=== PATIENT | female | born 1945 | race Caucasian/White ===

== ENCOUNTER 2016-04-20 08:06 | Day surgery (SDC) | payer MEDICARE ==
[2016-04-19 09:19] VITALS: BMI 32.5
[~2016-04-20 08:06] MED LIST: LACTATED RINGERS 1,000 ML IV SCH
[2016-04-20 08:53] VITALS: RESP 16; TEMP 98.2
[2016-04-20] MEDS ORDERED: PROPOFOL 10 MG/ML 20 ML VIAL IV ONE (08:58)
[2016-04-20 08:59] LABS: Glucose,Whole Blood 160 mg/dL (75-99)
--- NOTE | 2016-04-20 09:13 | P.PCN ---
Date of Procedure: 04/20/16 Procedure(s) Performed: BRIEF HISTORY: Patient is a 70-year-old pleasant white female, scheduled for an elective colonoscopy as a part of evaluation of change in bowel habits. PROCEDURE PERFORMED: Colonoscopy. PREOPERATIVE DIAGNOSIS: Change in bowel habits. IV sedation per Anesthesia. PROCEDURE: After informed consent was obtained, the patient, was brought into the endoscopy unit. IV conscious sedation was administered by Anesthesia under continuous monitoring. Digital rectal examination was normal. Initially the Olympus CF-160 flexible video colonoscope was then inserted in the rectum, gradually advanced into the cecum without any difficulty. Careful examination was performed as the scope was gradually being withdrawn. Ileocecal valve and the appendiceal orifice were visualized and appeared normal. Prep was excellent. Mucosa of the cecum, ascending colon, transverse colon, descending colon, sigmoid colon, and rectum appeared normal. Retroflexion was performed in the rectum and no lesions were seen. The patient tolerated the procedure well. IMPRESSION: Normal-appearing colon from rectum to cecum with no evidence of colorectal neoplasia. RECOMMENDATIONS: Findings of this examination were discussed with the patient as well as a family. She was advised to have a repeat screening colonoscopy in 10 years.
[2016-04-20 09:20] VITALS: BP 119/71; PULSE 59
[2016-04-20 09:32] LABS: Glucose,Whole Blood 166 mg/dL (75-99)
== END 2016-04-20 10:19 | disposition home or self-care (01) ==
LOC: ORWHC2ENDO 08:06
PROVIDERS: ATTEND Internal Medicine Gastroenterology
DX: R19.4 Change in bowel habit (principal); Z88.0 Allergy status to penicillin; I10 Essential (primary) hypertension; E78.5 Hyperlipidemia, unspecified; I25.10 Atherosclerotic heart disease of native coronary artery without angina pectoris; Z95.5 Presence of coronary angioplasty implant and graft; G47.33 Obstructive sleep apnea (adult) (pediatric); E11.9 Type 2 diabetes mellitus without complications; Z79.84 Long term (current) use of oral hypoglycemic drugs; Z79.4 Long term (current) use of insulin; Z79.899 Other long term (current) drug therapy
CPT/HCPCS: 45378; J2704

== ENCOUNTER → 2018-06-01 | Outpatient (CLI) | payer MEDICARE ==
--- NOTE | 2018-06-01 11:04 | BD ---
EXAMINATION TYPE: Axial Bone Density DATE OF EXAM: 06/01/2018 COMPARISON: NONE CLINICAL HISTORY: Postmenopausal female Height: 67 Weight: 218.3 FRAX RISK QUESTIONS: Alcohol (3 or more units per day): no Family History (Parent hip fracture): yes Glucocorticoids (More than 3mos): no (Ex: prednisone, prednisolone, methylprednisolone, dexamethasone, and hydrocortisone). History of Fracture in Adulthood: no Secondary Osteoporosis: 1. Type 1 Diabetes: no 2. Hyperthyroidism: no 3. Menopause before 45: no 4. Malnutrition: no 5. Chronic liver disease: no Rheumatoid Arthritis: no Current Tobacco Use: no RISK FACTORS HISTORY OF: Family History of Osteoporosis: no Active: yes Diet low in dairy products/other sources of calcium: no Postmenopausal woman: age 49 Lost more than 2 inches in height since high school: no MEDICATIONS: umalog, lantis, amlodipine, lasix, glucaphage, metoprolol, lipitor, losartan Additional History: pt is type 2 diabetic EXAM MEASUREMENTS: Bone mineral densitometry was performed using the [email or web address] System. Bone mineral density as measured about the Lumbar spine is: ----- L1-L4(G/cm2): 1.472 T Score Values are as follows: ----- L2: 2.7 ----- L3: 2.1 ----- L4: 2.9 ----- L1-L4: 2.4 Bone mineral density has: increased 6.4 % since study of 11.10.2008 Bone mineral density about the R hip (g/cm2): 1.377 Bone mineral density about the L hip (g/cm2): 1.328 T Score values are as follows: -----R Neck: 2.4 -----L Neck: 2.1 -----R Total: 3.2 -----L Total: 2.7 Bone mineral density has: increased 4.2 % since study of: 11.10.2008 IMPRESSION: Normal (Values between +1 and -1 indicate normal bone mass). Consider repeating this study in 5 year s or sooner if there is some new clinical indication. NOTE: T-SCORE=SD OF THE YOUNG ADULT MEAN.
== END | disposition home or self-care (01) ==
LOC: RADBDWWP 09:11
PROVIDERS: ATTEND Internal Medicine Geriatric Medicine
DX: M81.0 Age-related osteoporosis without current pathological fracture (principal)
CPT/HCPCS: 77080

== ENCOUNTER 2018-06-05 19:12 | Observation (INO) | payer MEDICARE ==
[2018-06-05] MEDS ORDERED: SODIUM CHLORIDE 0.9% 500 ML 500 ML IV STA (19:40)
[2018-06-05 20:00] LABS: Basophils % (A) 1 %; Eosinophils # (A) 0.3 k/uL (0-0.7); Eosinophils % (A) 4 %; HCT 32.8 % (34.0-46.0); HGB 11.1 gm/dL (11.4-16.0); Lymphocytes # (A) 1.7 k/uL (1.0-4.8); Lymphocytes % (A) 26 %; MCH 31.3 pg (25.0-35.0); MCHC 33.9 g/dL (31.0-37.0); MCV 92.1 fL (80.0-100.0); Mean Platelet Volume 7.9; Monocytes # (A) 0.4 k/uL (0-1.0); Monocytes % (A) 6 %; Neutrophils # (A) 3.9 k/uL (1.3-7.7); Neutrophils % (A) 60 %; Platelet Count 202 k/uL (150-450); RBC 3.56 m/uL (3.80-5.40); RDW 13.9 % (11.5-15.5); WBC 6.4 k/uL (3.8-10.6)
--- NOTE | 2018-06-05 20:00 | ED ---
General Adult HPI - General Chief complaint: Chest Pain Stated complaint: CHEST PAIN, LEFT NECK AND SHOULDER, EXHAUSTION Time Seen by Provider: 06/05/18 19:22 Source: patient, RN notes reviewed, old records reviewed Mode of arrival: wheelchair Limitations: no limitations - History of Present Illness Initial comments: 72-year-old female presented for evaluation of left-sided chest pain. Patient's symptoms have been progressive over one week, she's had several episodes of pain relieved by nitroglycerin. Over the past 48 hours she's had nearly constant left-sided chest pain with left shoulder pain and left sided neck pain. Denies trauma or injury. Denies diaphoresis, denies dyspnea, she has been lightheaded with increased generalized weakness she reports mild nonproductive cough. History of CAD with previous stenting in 2005. Not currently on any antiplatelet or anticoagulant. - Related Data Home Medications Medication Instructions Recorded Confirmed Aspirin EC [Ecotrin Low Dose] 81 mg PO DAILY 12/30/15 06/05/18 Atorvastatin [Lipitor] 40 mg PO HS 12/30/15 06/05/18 Gabapentin [Neurontin] 300 mg PO TID 12/30/15 06/05/18 INSULIN LISPRO (humaLOG) [HumaLOG] 20 units SQ AC-BRKFST 12/30/15 06/05/18 INSULIN LISPRO (humaLOG) [HumaLOG] 30 units SQ AC-LUNCH 12/30/15 06/05/18 INSULIN LISPRO (humaLOG) [HumaLOG] 40 units SQ AC-SUPPER 12/30/15 06/05/18 Insulin Glargine,Hum.rec.anlog 40 unit SQ HS 12/30/15 06/05/18 [Lantus Solostar] Losartan Potassium 100 mg PO HS 12/30/15 06/05/18 Metoprolol Succinate [Toprol XL] 50 mg PO BID 12/30/15 06/05/18 Multivitamins, Thera [Multivitamin] 1 tab PO DAILY 12/30/15 06/05/18 Nitroglycerin Sl Tabs [Nitrostat] 0.4 mg SUBLINGUAL Q5M PRN 12/30/15 06/05/18 amLODIPine [Norvasc] 2.5 mg PO QAM 12/30/15 06/05/18 metFORMIN HCL [Glucophage] 850 mg PO TID 12/30/15 06/05/18 Acetaminophen-Codeine 300-30mg 1 - 2 tab PO Q8H PRN 06/05/18 06/05/18 [Tylenol w/codeine #3] Albuterol Inhaler [Ventolin Hfa 2 puff INHALATION RT-Q6H PRN 06/05/18 06/05/18 Inhaler] Ascorbic Acid [Vitamin C] 500 mg PO DAILY 06/05/18 06/05/18 Furosemide [Lasix] 20 mg PO DAILY 06/05/18 06/05/18 Allergies Allergy/AdvReac Type Severity Reaction Status Date / Time Penicillins Allergy Rash/Hives Verified 06/05/18 19:44 Review of Systems ROS Statement: Those systems with pertinent positive or pertinent negative responses have been documented in the HPI. ROS Other: All systems not noted in ROS Statement are negative. Past Medical History Past Medical History: Coronary Artery Disease (CAD), Diabetes Mellitus, Hype rlipidemia, Hypertension, Sleep Apnea/CPAP/BIPAP Additional Past Medical History / Comment(s): arthritis, neuropathy, kidney stones, unstable angina,uses cpap History of Any Multi-Drug Resistant Organisms: None Reported Past Surgical History: Heart Catheterization With Stent, Hysterectomy Additional Past Surgical History / Comment(s): D and C, Cataract bilateral Past Anesthesia/Blood Transfusion Reactions: No Reported Reaction Date of Last Stent Placement:: Past Psychological History: No Psychological Hx Reported Smoking Status: Never smoker Past Alcohol Use History: Rare Past Drug Use History: None Reported - Past Family History Mother Family Medical History: Coronary Artery Disease (CAD), Diabetes Mellitus Father Additional Family Medical History / Comment(s): emphysema,heart problems Sister(s) Family Medical History: Cancer, Diabetes Mellitus Additional Family Medical History / Comment(s): breast Brother(s) Family Medical History: Diabetes Mellitus, Myocardial Infarction ([place]) General Exam Limitations: no limitations General appearance: alert, in no apparent distress Head exam: Present: atraumatic, normocephalic Eye exam: Present: normal appearance, PERRL ENT exam: Present: normal exam Neck exam: Present: normal inspection. Absent: tenderness, meningismus Respiratory exam: Present: normal lung sounds bilaterally. Absent: respiratory distress, wheezes Cardiovascular Exam: Present: regular rate, normal rhythm GI/Abdominal exam: Present: soft. Absent: distended, tenderness, guarding Extremities exam: Present: normal inspection, normal capillary refill, other (Normal bilateral radial pulses) Neurological exam: Present: alert, oriented X3 Psychiatric exam: Present: normal affect, normal mood Skin exam: Present: warm, dry, intact. Absent: cyanosis, diaphoretic Course Vital Signs 06/05/18 19:13 Temperature 98.4 F Pulse Rate 78 Respiratory 18 Rate Blood Pressure 167/80 O2 Sat by Pulse 97 Oximetry EKG Findings - EKG Comments: EKG Findings:: EKG: Sinus rhythm, rate 75, FL interval less than 200 ms, QRS duration 88, QTC 437, no ST segment elevation, artifact in V4 and V5. Medical Decision Making - Medical Decision Making 72-year-old female presented for evaluation of chest pain. EKG negative for ST segment elevation, chest x-ray negative for acute cardiopulmonary disease. Patient's symptoms are somewhat concerning with history of CAD. She has normal blood cell count, stable hemoglobin, normal electrolytes. Initial troponin negative. Patient will be kept in observation for serial cardiac enzymes, t elemetry, echo, and cardiology consultation. Case is discussed with Dr. Jim who will accept admission. - Lab Data Result diagrams: 06/05/18 19:43 06/05/18 19:43 Lab Results 06/05/18 06/05/18 06/05/18 Range/Units 19:43 19:43 19:43 WBC 6.4 (3.8-10.6) k/uL RBC 3.56 L (3.80-5.40) m/uL Hgb 11.1 L (11.4-16.0) gm/dL Hct 32.8 L (34.0-46.0) % MCV 92.1 (80.0-100.0) fL MCH 31.3 (25.0-35.0) pg MCHC 33.9 (31.0-37.0) g/dL RDW 13.9 (11.5-15.5) % Plt Count 202 (150-450) k/uL Neutrophils % 60 % Lymphocytes % 26 % Monocytes % 6 % Eosinophils % 4 % Basophils % 1 % Neutrophils # 3.9 (1.3-7.7) k/uL Lymphocytes # 1.7 (1.0-4.8) k/uL Monocytes # 0.4 (0-1.0) k/uL Eosinophils # 0.3 (0-0.7) k/uL Basophils # 0.0 (0-0.2) k/uL PT (9.0-12.0) sec INR (<1.2) APTT (22.0-30.0) sec Sodium 138 (137-145) mmol/L Potassium 4.9 (3.5-5.1) mmol/L Chloride 104 (98-107) mmol/L Carbon Dioxide 21 L (22-30) mmol/L Anion Gap 13 mmol/L BUN 32 H (7-17) mg/dL Creatinine 0.91 (0.52-1.04) mg/dL Est GFR (CKD-EPI)AfAm 74 (>60 ml/min/1.73 sqM) Est GFR (CKD-EPI)NonAf 64 (>60 ml/min/1.73 sqM) Glucose 182 H (74-99) mg/dL Calcium 10.0 (8.4-10.2) mg/dL Magnesium 1.7 (1.6-2.3) mg/dL Total Bilirubin 0.5 (0.2-1.3) mg/dL AST 59 H (14-36) U/L ALT 64 H (9-52) U/L Alkaline Phosphatase 75 (38-126) U/L Troponin I (0.000-0.034) ng/mL NT-Pro-B Natriuret Pep pg/mL Total Protein 7.3 (6.3-8.2) g/dL Albumin 4.3 (3.5-5.0) g/dL Influenza Type A RNA Not Detected (Not Detectd) Influenza Type B (PCR) Not Detected (Not Detectd) 06/05/18 06/05/18 06/05/18 Range/Units 19:43 19:43 19:43 WBC (3.8-10.6) k/uL RBC (3.80-5.40) m/uL Hgb (11.4-16.0) gm/dL Hct (34.0-46.0) % MCV (80.0-100.0) fL MCH (25.0-35.0) pg MCHC (31.0-37.0) g/dL RDW (11.5-15.5) % Plt Count (150-450) k/uL Neutrophils % % Lymphocytes % % Monocytes % % Eosinophils % % Basophils % % Neutrophils # (1.3-7.7) k/uL Lymphocytes # (1.0-4.8) k/uL Monocytes # (0-1.0) k/uL Eosinophils # (0-0.7) k/uL Basophils # (0-0.2) k/uL PT 9.9 (9.0-12.0) sec INR 0.9 (<1.2) APTT 19.1 L (22.0-30.0) sec Sodium (137-145) mmol/L Potassium (3.5-5.1) mmol/L Chloride (98-107) mmol/L Carbon Dioxide (22-30) mmol/L Anion Gap mmol/L BUN (7-17) mg/dL Creatinine (0.52-1.04) mg/dL Est GFR (CKD-EPI)AfAm (>60 ml/min/1.73 sqM) Est GFR (CKD-EPI)NonAf (>60 ml/min/1.73 sqM) Glucose (74-99) mg/dL Calcium (8.4-10.2) mg/dL Magnesium (1.6-2.3) mg/dL Total Bilirubin (0.2-1.3) mg/dL AST (14-36) U/L ALT (9-52) U/L Alkaline Phosphatase (38-126) U/L Troponin I <0.012 (0.000-0.034) ng/mL NT-Pro-B Natriuret Pep 48 pg/mL Total Protein (6.3-8.2) g/dL Albumin (3.5-5.0) g/dL Influenza Type A RNA (Not Detectd) Influenza Type B (PCR) (Not Detectd) Disposition Clinical Impression: Chest pain Disposition: HOME SELF-CARE Condition: Stable Is patient prescribed a controlled substance at d/c from ED?: No Referrals: Jeramy Lutz MD [Primary Care Provider] - 1-2 days Decision to Admit Reason: Admit from EC Decision Date: 06/05/18 Decision Time: 20:58
[2018-06-05 20:08] LABS: Albumin 4.3 g/dL (3.5-5.0); Magnesium 1.7 mg/dL (1.6-2.3); Potassium 4.9 mmol/L (3.5-5.1); Total Bilirubin 0.5 mg/dL (0.2-1.3); Total Protein 7.3 g/dL (6.3-8.2)
[2018-06-05 20:11] LABS: INR 0.9 (<1.2); Prothrombin Time 9.9 sec (9.0-12.0)
[2018-06-05 20:23] LABS: Partial Thromboplastin Time 19.1 sec (22.0-30.0)
[2018-06-05] MEDS ORDERED: ASPIRIN 325 MG TAB PO STA (20:24)
[2018-06-05] MEDS ORDERED: ALBUTEROL NEBULIZED 2.5 MG/3 ML INHALATION PRN (20:43)
[2018-06-05] MEDS ORDERED: NITROGLYCERIN SL TABS 0.4 MG TAB SUBLINGUAL PRN (20:43)
[2018-06-05] MEDS ORDERED: SODIUM CHLORIDE 0.9% 1,000 ML IV SCH (20:45)
--- NOTE | 2018-06-05 20:54 | XR ---
EXAMINATION: XR chest 2V DATE AND TIME: 06/05/2018 7:54 PM CLINICAL INDICATION: Chest pain with left arm and shoulder pain TECHNIQUE: Departmental protocol COMPARISON: 12/30/2015 FINDINGS: The lungs are clear. The pleural spaces are negative. The cardiac silhouette is not enlarged. The remainder of the mediastinal silhouette is unremarkable. The skeletal structures and soft tissues are negative for acute findings. IMPRESSION: NO ACUTE PROCESS.
[2018-06-05] MEDS ORDERED: ACETAMINOPHEN TAB 325 MG TAB PO PRN (20:55)
[2018-06-05] MEDS ORDERED: NALOXONE 0.4 MG/ML 1 ML VIAL IV PRN (20:55)
[2018-06-05] MEDS ORDERED: MORPHINE SULFATE 4 MG/ML SYRINGE IV PRN (20:55)
[2018-06-05] MEDS ORDERED: ATORVASTATIN 40 MG TAB PO SCH (21:00)
[2018-06-05] MEDS ORDERED: LOSARTAN 50 MG TAB PO SCH (21:00)
[2018-06-05] MEDS ORDERED: INSULIN DETEMIR (LEVEMIR) 100 UNIT/ML SYR SQ SCH (22:00)
[2018-06-05 22:47] LABS: Glucose,Whole Blood 125 mg/dL (75-99)
[2018-06-05] MEDS: METOPROLOL SUCCINATE (ER) 50 MG TAB.ER.24H PO SCH (22:48)
[2018-06-05] MEDS: GABAPENTIN 300 MG CAP PO SCH (22:48)
[2018-06-06 01:56] VITALS: RESP 18
[2018-06-06 06:47] LABS: Glucose,Whole Blood 127 mg/dL (75-99)
[2018-06-06] MEDS ORDERED: INSULIN ASPART (NovoLOG) 100 UNIT/ML VIAL SQ SCH ×3 (07:30→17:30)
[2018-06-06] MEDS ORDERED: ONDANSETRON 4 MG/2 ML VIAL IVP PRN (08:43)
[2018-06-06] MEDS ORDERED: ASPIRIN 81 MG PO SCH (09:00)
[2018-06-06] MEDS ORDERED: FUROSEMIDE 20 MG TAB PO SCH (09:00)
[2018-06-06] MEDS ORDERED: amLODIPine 2.5 MG TAB PO SCH (09:00)
[2018-06-06] MEDS ORDERED: CAFFEINE CITRATE 60 MG/3 ML VIAL IV PRN (09:25)
[2018-06-06] MEDS ORDERED: REGADENOSON 0.4 MG/5 ML SYRINGE IV ONE (09:25)
--- NOTE | 2018-06-06 09:25 | US ---
EXAMINATION TYPE: US abdomen complete DATE OF EXAM: 06/06/2018 COMPARISON: NONE CLINICAL HISTORY: nausea. N/V EXAM MEASUREMENTS: Liver Length: 19.8 cm Gallbladder Wall: 0.1 cm CBD: 0.4 cm Spleen: 9.1 cm Right Kidney: 13.2 x 6.1 x 5.8 cm Left Kidney: 11.9 x 4.4 x 5.0 cm Pancreas: Echogenic Liver: Increased attenuation, decreased visualization of vessels suggestive of fatty infiltrate. Ap pears enlarged in size and course. Gallbladder: Possible small amount of mobile sludge, no shadowing visualized Evidence for sonographic Guevara's sign: neg CBD: wnl Spleen: wnl Right Kidney: wnl Left Kidney: Lateral lower pole hypoechoic nodule - 1.0 x 0.8 x 0.9 cm. Prominent pyramids. Upper IVC: wnl Abd Aorta: No AAA visualized IMPRESSION: 1. Pattern of liver is nonspecific and be seen with fatty infiltration or hepatitis. 2. Gallbladder sludge with no evidence of biliary dilation. 3. hypoechoic lesion involving the lower pole left kidney is indeterminate and does not meet the crit eria of a simple cyst which May BE secondary to its small size. It is felt to BE most likely in the b asis of a tiny cyst.
[2018-06-06] MEDS ORDERED: Acetaminophen-Codeine 300-30mg TAB PO PRN (09:49)
--- NOTE | 2018-06-06 10:04 | P.CRDCN ---
History of Present Illness History of present illness: This is a pleasant 72-year-old female past medical history significant for coronary artery disease status post stent placement to the LAD at [facility] per Dr. Christina, diabetes mellitus, hypertension, dyslipidemia and obesity. She states she had a stent placed to the LAD after having an abnormal stress test in 2004. Subsequently thereafter in 2016 she had a Lexiscan stress test which was again abnormal for which she underwent repeat catheterization which she was told was normal. She states over the previous 2-3 days she has started feeling nauseated all the time. Not related to oral intake. Then she started having some heavy pressure sensation like someone was sitting on her chest in the midsternal region with radiation to the left shoulder and left neck. No radiation down the arm. The chest discomfort is not worse with exertion or physical activity. She denies associated shortness of breath, dizziness, vomiting or palpitations. She is seen and examined resting comfortably laying flat in bed in no acute distress. She denies active chest discomfort at this time but has persistent nausea. EKG reveals sinus mechanism with no acute ST or T wave abnormalities noted. Chest x-ray is negative for acute cardiopulmonary process. Laboratory data reviewed, WBC 6.4, hemoglobin 11.1, platelets 13.9, sodium 138, potassium 4.9, creatinine 0.91, magnesium 1.7, AST 59, ALT 64, cardiac enzymes negative 2, NT proBNP 48. Current cardiac medications include losartan 100 mg daily, Toprol 50 mg twice a day, amlodipine 2.5 mg daily, Lasix 20 mg daily, atorvastatin 40 mg daily and aspirin 81 mg daily. At the time of my exam: CONSTITUTIONAL: Denies fever. Denies chills. EYES: Denies blurred vision. Denies vision changes. Denies eye pain. EARS, NOSE, MOUTH & THROAT: Denies headache. Denies sore throat. Denies ear pain. CARDIOVASCULAR: Denies chest pain. Denies shortness of breath. Denies orthopnea. Denies PND. Denies palpitations. RESPIRATORY: Denies cough. GASTROINTESTINAL: Denies abdominal pain. Denies diarrhea. Denies constipation. Complains of nausea. Denies vomiting. MUSCULOSKELETAL: Denies myalgias. INTEGUMENTARY: Denies pruitis. Denies rash. NEUROLOGIC: Denies numbness. Denies tingling. Denies weakness. PSYCHIATRIC: Denies anxiety. Denies depression. ENDOCRINE: Denies fatigue. Denies weight change. Denies polydipsia. Denies polyurina. GENITOURINARY: Denies burning, hematuria or urgency with micturation. HEMATOLOGIC: Denies history of anemia. Denies bleeding. Blood pressure 127/68 heart rate 63 afebrile maintaining oxygen saturation on room air GENERAL: This is a 72-year-old female in no apparent distress at the time of my examination. HEENT: Head is atraumatic, normocephalic. Pupils are equal, round. Sclerae anicteric. Conjunctivae are clear. Mucous membranes of the mouth are moist. Neck is supple. There is no jugular venous distention. No carotid bruit is heard. LUNGS: Clear to auscultation no wheezes, rales or rhonchi. No chest wall tenderness is noted on palpation or with deep breathing. HEART: Regular rate and rhythm with systolic ejection murmur at the base, no rubs or gallops. S1 and S2 heard. ABDOMEN: Soft, nontender. Bowel sounds are heard. No organomegaly noted. EXTREMITIES: No evidence of peripheral edema and no calf tenderness noted. VASCULAR: Radial and dorsalis pedis pulses palpated, no evidence of clubbing. NEUROLOGIC: Patient is awake, alert and oriented x3. ASSESSMENT Chest pain, atypical with nausea and elevated liver enzymes. An acute coronary event has been ruled out. History of coronary artery disease status post stent placement 2004 Hypertension Dyslipidemia Diabetes mellitus PLAN An acute coronary event has been ruled out. Obtain ultrasound of the abdomen. Obtain 2-D echocardiogram and Doppler study to assess cardiac structure and function. Perform Lexiscan stress test to assess for stress-induced ischemia. Resume Toprol, losartan, Lasix, atorvastatin, aspirin and amlodipine. Further recommendations to follow based upon clinical course. Thank you kindly for this consultation. Nurse Practitioner note has been reviewed, I agree with a documented findings and plan of care. Patient was seen and examined. Past Medical History Past Medical History: Coronary Artery Disease (CAD), Diabetes Mellitus, Hyperlipidemia, Hypertension, Sleep Apnea/CPAP/BIPAP Additional Past Medical History / Comment(s): arthritis, neuropathy, kidney stones, unstable angina,uses cpap History of Any Multi-Drug Resistant Organisms: None Reported Past Surgical History: Heart Catheterization With Stent, Hysterectomy Additional Past Surgical History / Comment(s): D and C X2, Cataract bilateral X2 Past Anesthesia/Blood Transfusion Reactions: Postoperative Nausea & Vomiting (PONV) Date of Last Stent Placement:: Smoking Status: Never smoker - Past Family History Mother Family Medical History: Coronary Artery Disease (CAD), Diabetes Mellitus Father Additional Family Medical History / Comment(s): emphysema,heart problems Sister(s) Family Medical History: Cancer, Diabetes Mellitus Additional Family Medical History / Comment(s): breast Brother(s) Family Medical History: Diabetes Mellitus, Myocardial Infarction ([place]) Medications and Allergies Home Medications Medication Instructions Recorded Confirmed Type Aspirin EC [Ecotrin Low Dose] 81 mg PO DAILY 12/30/15 06/05/18 History Atorvastatin [Lipitor] 40 mg PO HS 12/30/15 06/05/18 History Gabapentin [Neurontin] 300 mg PO TID 12/30/15 06/05/18 History INSULIN LISPRO (humaLOG) [HumaLOG] 20 units SQ AC-BRKFST 12/30/15 06/05/18 History INSULIN LISPRO (humaLOG) [HumaLOG] 30 units SQ AC-LUNCH 12/30/15 06/05/18 History INSULIN LISPRO (humaLOG) [HumaLOG] 40 units SQ AC-SUPPER 12/30/15 06/05/18 History Insulin Glargine,Hum.rec.anlog 45 unit SQ HS 12/30/15 06/05/18 History [Lantus Solostar] Losartan Potassium 100 mg PO HS 12/30/15 06/05/18 History Metoprolol Succinate [Toprol XL] 50 mg PO BID 12/30/15 06/05/18 History Multivitamins, Thera [Multivitamin] 1 tab PO DAILY 12/30/15 06/05/18 History Nitroglycerin Sl Tabs [Nitrostat] 0.4 mg SUBLINGUAL Q5M PRN 12/30/15 06/05/18 History amLODIPine [Norvasc] 2.5 mg PO QAM 12/30/15 06/05/18 History metFORMIN HCL [Glucophage] 850 mg PO TID 12/30/15 06/05/18 History Acetaminophen-Codeine 300-30mg 1 - 2 tab PO Q8H PRN 06/05/18 06/05/18 History [Tylenol w/codeine #3] Albuterol Inhaler [Ventolin Hfa 2 puff INHALATION RT-Q6H PRN 06/05/18 06/05/18 History Inhaler] Furosemide [Lasix] 20 mg PO DAILY 06/05/18 06/05/18 History Allergies Allergy/AdvReac Type Severity Reaction Status Date / Time Penicillins Allergy Rash/Hives Verified 06/05/18 19:44 ragweed pollen Allergy Rash/Hives Verified 06/05/18 22:10 Physical Exam Vitals: Vital Signs Temp Pulse Pulse Resp BP BP Pulse Ox 06/06/18 07:05 80 06/06/18 06:54 88 06/06/18 03:56 98.4 F 68 18 140/79 95 06/06/18 00:00 98.8 F 73 18 168/67 97 06/05/18 21:00 78 16 140/70 100 06/05/18 19:13 98.4 F 78 18 167/80 97 Intake and Output 06/05/18 06/06/18 06/06/18 22:59 06:59 14:59 Other: # Voids 1 1 Weight 98.883 kg Results 06/05/18 19:43 06/05/18 19:43 Cardiac Enzymes 06/05/18 06/05/18 06/06/18 Range/Units 19:43 19:43 02:18 AST 59 H (14-36) U/L Troponin I <0.012 <0.012 (0.000-0.034) ng/mL Coagulation 06/05/18 Range/Units 19:43 PT 9.9 (9.0-12.0) sec APTT 19.1 L (22.0-30.0) sec CBC 06/05/18 Range/Units 19:43 WBC 6.4 (3.8-10.6) k/uL RBC 3.56 L (3.80-5.40) m/uL Hgb 11.1 L (11.4-16.0) gm/dL Hct 32.8 L (34.0-46.0) % Plt Count 202 (150-450) k/uL Comprehensive Metabolic Panel 06/05/18 Range/Units 19:43 Sodium 138 (137-145) mmol/L Potassium 4.9 (3.5-5.1) mmol/L Chloride 104 (98-107) mmol/L Carbon Dioxide 21 L (22-30) mmol/L BUN 32 H (7-17) mg/dL Creatinine 0.91 (0.52-1.04) mg/dL Glucose 182 H (74-99) mg/dL Calcium 10.0 (8.4-10.2) mg/dL AST 59 H (14-36) U/L ALT 64 H (9-52) U/L Alkaline Phosphatase 75 (38-126) U/L Total Protein 7.3 (6.3-8.2) g/dL Albumin 4.3 (3.5-5.0) g/dL Current Medications Generic Name Dose Route Start Last Admin Trade Name Freq PRN Reason Stop Dose Admin Acetaminophen 650 mg 06/05/18 20:55 Tylenol Tab PO Q6HR PRN Mild Pain or Fever > 100.5 Albuterol Sulfate 2.5 mg 06/05/18 20:43 06/06/18 06:54 Ventolin Nebulized INHALATION 2.5 mg RT-Q6H PRN Administration Shortness Of Breath Amlodipine Besylate 2.5 mg 06/06/18 09:00 Norvasc PO QAM SANDRA Aspirin 81 mg 06/06/18 09:00 Aspirin PO DAILY SANDRA Atorvastatin Calcium 40 mg 06/05/18 21:00 06/05/18 22:48 Lipitor PO 40 mg HS SANDRA Administration Furosemide 20 mg 06/06/18 09:00 Lasix PO DAILY SANDRA Gabapentin 300 mg 06/05/18 22:00 06/05/18 22:48 Neurontin PO 300 mg TID SANDRA Administration Sodium Chloride 1,000 mls @ 75 mls/hr 06/05/18 20:45 06/05/18 21:15 Saline 0.9% IV 75 mls/hr .[id number] SANDRA Administration Insulin Aspart 20 unit 06/06/18 07:30 Novolog SQ AC-BRKFST SANDRA Insulin Aspart 30 unit 06/06/18 12:30 Novolog SQ AC-LUNCH SANDRA Insulin Aspart 40 unit 06/06/18 17:30 Novolog SQ AC-[facility] Insulin Detemir 40 unit 06/05/18 22:00 06/05/18 22:49 Levemir SQ 40 unit HS SANDRA Administration Losartan Potassium 100 mg 06/05/18 21:00 06/05/18 22:48 Cozaar PO 100 mg HS SANDRA Administration Metoprolol Succinate 50 mg 06/05/18 21:00 06/05/18 22:48 Toprol Xl PO 50 mg BID SANDRA Administration Morphine Sulfate 4 mg 06/05/18 20:55 06/06/18 01:28 Morphine Sulfate (Inj) IV 4 mg Q4HR PRN Administration Severe Pain Naloxone HCl 0.2 mg 06/05/18 20:55 Narcan IV Q2M PRN Opioid Reversal Nitroglycerin 0.4 mg 06/05/18 20:43 Nitrostat SUBLINGUAL Q5M PRN Chest Pain Intake and Output 06/05/18 06/06/18 06/06/18 22:59 06:59 14:59 Other: # Voids 1 1 Weight 98.883 kg 06/05/18 19:43 06/05/18 19:43
[2018-06-06] MEDS ORDERED: DOBUTamine DRIP for NUC MED 500 MG in DEXTROSE/WATER 1 250ML.BAG IV ONE (11:40)
[2018-06-06 12:07] LABS: Glucose,Whole Blood 193 mg/dL (75-99)
[2018-06-06] MEDS: GABAPENTIN 300 MG CAP PO SCH (12:10)
[2018-06-06] MEDS: METOPROLOL SUCCINATE (ER) 50 MG TAB.ER.24H PO SCH (12:10)
[2018-06-06 12:18] VITALS: BP 160/72; PULSE 69; TEMP 98.3
--- NOTE | 2018-06-06 13:43 | ECHOF ---
Referral Reason: MEASUREMENTS -------- HEIGHT: 172.7 cm WEIGHT: 98.9 kg BP: 140/79 RVIDd: 2.8 cm (< 3.3) IVSd: 1.3 cm (0.6 - 1.1) LVIDd: 4.9 cm (3.9 - 5.3) LVPWd: 1.2 cm (0.6 - 1.1) IVSs: 1.9 cm LVIDs: 3.7 cm LVPWs: 1.3 cm LA Diam: 3.5 cm (2.7 - 3.8) LAESV Index (A-L): 37.12 ml/m Ao Diam: 3.2 cm (2.0 - 3.7) AV Cusp: 2.4 cm (1.5 - 2.6) MV EXCURSION: 16.095 mm (> 18.000) MV EF SLOPE: 79 mm/s (70 - 150) EPSS: 0.4 cm MV E Damian: 1.01 m/s MV DecT: 188 ms MV A Damian: 1.09 m/s MV E/A Ratio: 0.93 FINDINGS -------- Sinus rhythm. This was a technically good study. The left ventricular size is normal. There is mild concentric left ventricular hypertrophy. Overa ll left ventricular systolic function is normal with, an EF between 55 - 60 %. The diastolic fillin g pattern is normal for the age of the patient 11.53. The right ventricle is normal in size. LA is moderately dilated 34-39 ml/m2 The right atrium is normal in size. The aortic valve is trileaflet, and appears structurally normal. No aortic stenosis or regurgitation. The mitral valve leaflets are mildly thickened. Mild mitral regurgitation is present. The tricuspid valve appears structurally normal. The pulmonic valve was not well visualized. Trace/mild (physiologic) pulmonic regurgitation. The aortic root size is normal. Normal inferior vena cava with normal inspiratory collapse consistent with estimated right atrial pre ssure of 5 mmHg. There is no pericardial effusion. CONCLUSIONS -------- 1. Sinus rhythm. 2. This was a technically good study. 3. The left ventricular size is normal. 4. There is mild concentric left ventricular hypertrophy. 5. Overall left ventricular systolic function is normal with, an EF between 55 - 60 %. 6. The diastolic filling pattern is normal for the age of the patient 11.53 7. LA is moderately dilated 34-39 ml/m2 8. The aortic valve is trileaflet, and appears structurally normal. No aortic stenosis or regurgitati on. 9. Mild mitral regurgitation is present. 10. The tricuspid valve appears structurally normal. 11. Trace/mild (physiologic) pulmonic regurgitation. 12. The aortic root size is normal. 13. Normal inferior vena cava with normal inspiratory collapse consistent with estimated right atrial pressure of 5 mmHg. 14. There is no pericardial effusion. HEALTH THERAPIST: Julieta Duron RDCS
--- NOTE | 2018-06-06 14:11 | P.HPIM ---
History of Present Illness H&P Date: 06/06/18 Chief Complaint: Chest pain This is a 72-year-old female patient of Dr. Dr. 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 Patient complains of left-sided chest pain that has been worsening over the past 2 days. It has become constant in the left shoulder and left chest and left side of her neck. She describes as weighted pressure and like a corkscrew turning in her heart. She complains of feeling very tired. Pains develop when she was doing things like emptying the bleacher groundwood pulp in the bathroom. She states she has had some nausea, no abdominal pain, no bloating. She avoids fried foods. She denies any fever, no back pain, no urinary symptoms. The patient is complaining of severe headache and vomited once this morning. She takes her headache is from not having caffeine. She is concerned because she is going to [place] in 2 weeks on vacation. Patient came into [facility] emergency center for evaluation. She has been afebrile, heart rate in the 70s, blood pressure 167/80, pulse ox 97% on room air. EKG was a sinus rhythm without ST elevation. White count was normal, hemoglobin 11.1, blood sugar 182, CO2 21, BUN 32 and creatinine 0.91. Influenza testing negative. Troponin negative. ProBNP 48. Chest x-ray negative. Ultrasound of the abdomen showed pattern of liver is nonspecific with fatty infiltration or hepatitis. Gallbladder sludge no evidence of biliary dilatation. Hypoechoic lesion involving the lower pole left kidney is indeterminate does not meet criteria for simple cysts which may be secondary to its small size. [place] to be most likely on the basis of a tiny cyst. Patient was placed in the observation unit, serial troponins ordered, Lexiscan Cardiolite stress test has been ordered and echocardiogram. Repeat troponins have been negative. Patient was unable to tolerate and complete the Cardiolite stress test due to her headache but she has been cleared for discharge home. Patient does have an appointment with her cashier ticket selling this week. Patient will be discharged home in stable condition. No medication changes have been made. Review of Systems All systems: negative Constitutional: Reports fatigue, Denies chills, Denies fever, Denies weight loss Eyes: denies blurred vision, denies pain Ears, nose, mouth and throat: Denies dysphagia, Denies headache, Denies sore throat, Denies vertigo Cardiovascular: Reports chest pain, Denies decreased exercise tolerance, Denies dyspnea on exertion, Denies edema, Denies leg edema, Denies lightheadedness, Denies shortness of breath, Denies syncope Respiratory: Denies cough, Denies cough with sputum, Denies dyspnea, Denies excessive sputum, Denies hemoptysis, Denies home oxygen, Denies wheezing Gastrointestinal: Reports nausea, Denies abdominal pain, Denies diarrhea, Denies vomiting Genitourinary: Denies dysuria, Denies hematuria, Denies urgency, Denies urinary frequency Musculoskeletal: Denies frequent falls, Denies gait dysfunction, Denies myalgias Integumentary: Denies pruritus, Denies rash, Denies wounds Neurological: Denies aphasia, Denies change in mentation, Denies change in speech, Denies gait dysfunction, Denies numbness, Denies weakness Psychiatric: Denies anxiety, Denies depression Endocrine: Denies fatigue, Denies weight change Past Medical History Past Medical History: Coronary Artery Disease (CAD), Diabetes Mellitus, Hyperlipidemia, Hypertension, Sleep Apnea/CPAP/BIPAP Additional Past Medical History / Comment(s): arthritis, neuropathy, kidney stones, unstable angina,uses cpap History of Any Multi-Drug Resistant Organisms: None Reported Past Surgical History: Heart Catheterization With Stent, Hysterectomy Additional Past Surgical History / Comment(s): D and C X2, Cataract bilateral X2 Past Anesthesia/Blood Transfusion Reactions: Postoperative Nausea & Vomiting (PONV) Date of Last Stent Placement:: Smoking Status: Never smoker - Past Family History Mother Family Medical History: Coronary Artery Disease (CAD), Diabetes Mellitus Father Additional Family Medical History / Comment(s): emphysema,heart problems Sister(s) Family Medical History: Cancer, Diabetes Mellitus Additional Family Medical History / Comment(s): breast Brother(s) Family Medical History: Diabetes Mellitus, Myocardial Infarction (AR) Medications and Allergies Home Medications Medication Instructions Recorded Confirmed Type Aspirin EC [Ecotrin Low Dose] 81 mg PO DAILY 12/30/15 06/05/18 History Atorvastatin [Lipitor] 40 mg PO HS 12/30/15 06/05/18 History Gabapentin [Neurontin] 300 mg PO TID 12/30/15 06/05/18 History INSULIN LISPRO (humaLOG) [humaLOG] 20 units SQ AC-BRKFST 12/30/15 06/05/18 History INSULIN LISPRO (humaLOG) [humaLOG] 30 units SQ AC-LUNCH 12/30/15 06/05/18 History INSULIN LISPRO (humaLOG) [humaLOG] 40 units SQ AC-SUPPER 12/30/15 06/05/18 History Insulin Glargine,Hum.rec.anlog 45 unit SQ HS 12/30/15 06/05/18 History [Lantus Solostar] Losartan Potassium 100 mg PO HS 12/30/15 06/05/18 History Metoprolol Succinate [Toprol XL] 50 mg PO BID 12/30/15 06/05/18 History Multivitamins, Thera [Multivitamin 1 tab PO DAILY 12/30/15 06/05/18 History (formulary)] Nitroglycerin Sl Tabs [Nitrostat] 0.4 mg SUBLINGUAL Q5M PRN 12/30/15 06/05/18 History amLODIPine [Norvasc] 2.5 mg PO QAM 12/30/15 06/05/18 History metFORMIN HCL [Glucophage] 850 mg PO TID 12/30/15 06/05/18 History Acetaminophen-Codeine 300-30mg 1 - 2 tab PO Q8H PRN 06/05/18 06/05/18 History [Tylenol w/codeine #3] Albuterol Inhaler [Ventolin Hfa 2 puff INHALATION RT-Q6H PRN 06/05/18 06/05/18 History Inhaler] Furosemide [Lasix] 20 mg PO DAILY 06/05/18 06/05/18 History Allergies Allergy/AdvReac Type Severity Reaction Status Date / Time Penicillins Allergy Rash/Hives Verified 06/05/18 19:44 ragweed pollen Allergy Rash/Hives Verified 06/05/18 22:10 Physical Exam Vitals: Vital Signs Temp Pulse Pulse Resp BP BP Pulse Ox 06/06/18 09:12 63 127/68 95 06/06/18 07:15 97.8 F 61 18 172/80 96 06/06/18 07:05 80 06/06/18 06:54 88 06/06/18 03:56 98.4 F 68 18 140/79 95 06/06/18 00:00 98.8 F 73 18 168/67 97 06/05/18 21:00 78 16 140/70 100 06/05/18 19:13 98.4 F 78 18 167/80 97 Intake and Output 06/05/18 06/06/18 06/06/18 22:59 06:59 14:59 Other: # Voids 1 1 Weight 98.883 kg Gen: This is a 72-year-old female. She is resting in bed and appears to be comfortable and in no acute distress. HEENT: Head is atraumatic, normocephalic. Pupils equal, round. Sclerae is anicteric. NECK: Supple. No JVD. No lymphadenopathy. No thyromegaly. LUNGS: Clear to auscultation. No wheezes or rhonchi. No intercostal retra ctions. HEART: Regular rate and rhythm. No murmur. ABDOMEN: Soft. Bowel sounds are present. No masses. No tenderness. EXTREMITIES: No pedal edema. No calf tenderness. NEUROLOGICAL: Patient is awake, alert and oriented x3. Cranial nerves 2 through 12 are grossly intact. Results CBC & Chem 7: 06/05/18 19:43 06/05/18 19:43 Labs: Abnormal Lab Results - Last 24 Hours (Table) 06/05/18 06/05/18 06/05/18 Range/Units 19:43 19:43 19:43 RBC 3.56 L (3.80-5.40) m/uL Hgb 11.1 L (11.4-16.0) gm/dL Hct 32.8 L (34.0-46.0) % APTT 19.1 L (22.0-30.0) sec Carbon Dioxide 21 L (22-30) mmol/L BUN 32 H (7-17) mg/dL Glucose 182 H (74-99) mg/dL POC Glucose (mg/dL) (75-99) mg/dL AST 59 H (14-36) U/L ALT 64 H (9-52) U/L 06/05/18 06/06/18 Range/Units 22:45 06:44 RBC (3.80-5.40) m/uL Hgb (11.4-16.0) gm/dL Hct (34.0-46.0) % APTT (22.0-30.0) sec Carbon Dioxide (22-30) mmol/L BUN (7-17) mg/dL Glucose (74-99) mg/dL POC Glucose (mg/dL) 125 H 127 H (75-99) mg/dL AST (14-36) U/L ALT (9-52) U/L Thrombosis Risk Factor Assmnt - Choose All That Apply Each Risk Factor Represents 2 Points: Age 61-74 years Thrombosis Risk Factor Assessment Total Risk Factor Score: 2 Thrombosis Risk Factor Assessment Level: Low Risk Assessment and Plan Plan: 1. Chest pain with normal troponins. 2. History of coronary artery disease with stent placement in 2005. 3. Diabetes mellitus type 2. 4. Hyperlipidemia. 5. Hypertension. 6. Obstructive sleep apnea on CPAP. 7. Diabetic neuropathy and left charcot foot. Patient placed on the observation unit. Discharge plan: Home Impression and plan of care have been directed as dictated by the signing physician. Edilia Gibbons nurse practitioner acting as scribe for signing physician.
== END 2018-06-06 15:32 | disposition home or self-care (01) ==
LOC: EC 19:12 → 1SOBS 20:55
PROVIDERS: ADMIT Family Medicine; ATTEND Family Medicine
DX: R07.89 Other chest pain (principal); M25.512 Pain in left shoulder; M54.2 Cervicalgia; R42 Dizziness and giddiness; R53.1 Weakness; R05 Cough; R11.2 Nausea with vomiting, unspecified; R51 Headache; I25.10 Atherosclerotic heart disease of native coronary artery without angina pectoris; E78.5 Hyperlipidemia, unspecified; I10 Essential (primary) hypertension; M19.90 Unspecified osteoarthritis, unspecified site; E11.40 Type 2 diabetes mellitus with diabetic neuropathy, unspecified; R74.8 Abnormal levels of other serum enzymes; E11.610 Type 2 diabetes mellitus with diabetic neuropathic arthropathy; A52.16 Charcot's arthropathy (tabetic); E66.9 Obesity, unspecified; Z68.33 Body mass index [BMI] 33.0-33.9, adult; Z95.5 Presence of coronary angioplasty implant and graft; K82.8 Other specified diseases of gallbladder; G47.33 Obstructive sleep apnea (adult) (pediatric); Z99.89 Dependence on other enabling machines and devices; Z87.442 Personal history of urinary calculi; Z79.82 Long term (current) use of aspirin; Z79.899 Other long term (current) drug therapy; Z79.4 Long term (current) use of insulin; Z88.0 Allergy status to penicillin; Z91.048 Other nonmedicinal substance allergy status; Z82.5 Family history of asthma and other chronic lower respiratory diseases; Z80.3 Family history of malignant neoplasm of breast
CPT/HCPCS: 96374; 96375; 96361; 99285; 36415; 94640; 93306; 83880; 80053; 83690; 83735; 84484 ×2; 85025; 85610; 85730; 87502; 71046; 76700; G0378 ×2; J1250; J2270; J2405; J2785

== ENCOUNTER → 2018-11-05 | Outpatient (CLI) | payer MEDICARE ==
--- NOTE | 2018-11-06 02:17 | MR ---
EXAMINATION TYPE: MR shoulder RT wo con DATE OF EXAM: 11/05/2018 COMPARISON: None HISTORY: Pain in upper arm TECHNIQUE: Multiplanar, multisequence imaging of the right shoulder is performed without contrast. FINDINGS: The subscapularis tendon is intact. There is shoulder joint effusion with fluid around the subscapula ris tendon. There is narrowing of the glenohumeral joint space. There is 8 mm degenerative cyst in th e greater tuberosity of the humerus. There is thickening and increased signal in the supraspinatus te ndon with a full-thickness defect. There is moderate hypertrophic spurring at the AC joint with cysti c change and mild subacromial impingement. There is no evidence of a fracture. There is some thinning of the biceps tendon. IMPRESSION: Thickening of the supraspinatus tendon with full-thickness tear. No retraction. Degenerative cyst for mation in the greater tuberosity. 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 Shoulder halie int effusion consistent with a nonspecific synovitis.
--- NOTE | 2018-11-06 07:46 | MR ---
EXAMINATION TYPE: MR humerus RT wo con DATE OF EXAM: 11/05/2018 COMPARISON: MRI of the right shoulder on the same date HISTORY: Pain in upper arm TECHNIQUE: Multiplanar, multisequence images of the right humerus were acquired without intravenous contrast. FINDINGS: Rotator cuff tear of the supraspinatus is better seen on the right shoulder MRI of the same date with moderate arthropathy of the right shoulder. The right humerus displays no evidence of bone marrow edema or suspicious osseous lesion. The elbow joint is maintained with very small osteophytes . The extensor compartment and flexor compartment musculature appears intact however there is fluid s urrounding the thickened biceps tendon is there is also lateral compartment common extensor tendon in creased signal. No suspicious axillary adenopathy. Right breast prosthesis is partially visualized. Multiple intracap sular ruptures are incidentally seen within the breast prosthesis. The exam is not optimized for eval uation of extracapsular rupture. Too small to accurately characterize renal lesions are seen. No sizable focal fluid collection or santos nt effusion. IMPRESSION: 1. No rotator cuff tear is better seen on the MRI shoulder of the same date given the [id number]. 2. Common extensor tendinosis of the elbow. 3. Mild extra-articular portion proximal biceps tendinosis. 4. Moderate arthropathy of the right shoulder and mild arthropathy of the right elbow. 5. Multiple incidentally noted partially visualized intracapsular ruptures appear to be present withi n the breast prosthesis however the exam is not optimized for implant rupture and MRI of the breasts could be performed. 6. Too small to accurately characterize right renal lesions.
== END ==
LOC: RADMRIMAIN 06:03
PROVIDERS: ATTEND Orthopaedic Surgery
DX: M75.121 Complete rotator cuff tear or rupture of right shoulder, not specified as traumatic (principal); M19.011 Primary osteoarthritis, right shoulder; E11.42 Type 2 diabetes mellitus with diabetic polyneuropathy

== ENCOUNTER → 2019-08-15 | Outpatient (CLI) | payer MEDICARE ==
--- NOTE | 2019-08-15 15:02 | US ---
EXAMINATION TYPE: US bladder DATE OF EXAM: 08/15/2019 COMPARISON: NONE CLINICAL HISTORY: R30.0 dysuria, R31.9 hematuria. Hematuria EXAM MEASUREMENTS: Post Void Residual Volume: 10.6 mL Color Doppler performed to assess ureteral jets. Bilateral Jets seen: yes Normal Post Void Residual (less than 50ml): yes IMPRESSION: 1. No obvious ultrasound abnormality of bladder. 2. No significant postvoid residual.
== END | disposition home or self-care (01) ==
LOC: RADUSWWP 13:55
PROVIDERS: ATTEND Internal Medicine Geriatric Medicine
DX: R30.0 Dysuria (principal); R31.9 Hematuria, unspecified
CPT/HCPCS: 76857

== ENCOUNTER → 2019-09-14 | Outpatient (CLI) | payer MEDICARE ==
--- NOTE | 2019-09-16 11:49 | CT ---
EXAMINATION TYPE: CT abdomen pelvis wo con DATE OF EXAM: 09/14/2019 COMPARISON: None INDICATION: hematuria DLP: 1030.3 mGycm, Automated exposure control for dose reduction was used. CONTRAST: 0 mL of Isovue 300. Study performed without Oral Contrast TECHNIQUE: Axial images were obtained from above the diaphragm to the pubic rami in the axial plane a t 5 mm thick sections. Reconstructed images are reviewed on the computer in the coronal plane. FINDINGS: Limited CT sections are obtained the lung bases. The lung bases are clear. Some mild coronary arter y calcification is present. CT ABDOMEN: Liver: Normal Spleen: Normal Pancreas: Normal Adrenal glands: The adrenal glands are normal. Gallbladder: Multiple small gallstones appear to be present. Kidneys: No masses are evident. No hydronephrosis is present. No cysts are present. No renal stone s are identified. Aorta: Vascular calcification is within the aorta. Inferior vena cava: Normal. CT PELVIS: Loops of bowel within the abdomen and pelvis are normal. The study is without oral contrast limit ing bowel evaluation. Appendix: Normal as visualized. Urinary bladder: Normal. Genitourinary structures: Uterus and ovaries are not identified. No free fluid is within the pelvis. Osseous structures: No suspicious lytic or sclerotic lesions. Sacroiliac joint degenerative changes a re present. Some facet hypertrophy is present. IMPRESSIONS: 1. Cholelithiasis.
== END | disposition home or self-care (01) ==
LOC: RADCTMAIN 14:19
PROVIDERS: ATTEND Urology
DX: K80.20 Calculus of gallbladder without cholecystitis without obstruction (principal); Z88.0 Allergy status to penicillin
CPT/HCPCS: 74176

== ENCOUNTER → 2020-01-09 | Outpatient (CLI) | payer MEDICARE ==
--- NOTE | 2020-01-09 16:56 | XR ---
EXAMINATION TYPE: XR cervical spine comp DATE OF EXAM: 01/09/2020 TECHNIQUE: Frontal, lateral, oblique, and open mouth view of the cervical spine are obtained. HISTORY: M54.2 cervicalgia COMPARISON: None FINDINGS: The cervical spine is visualized in its entirety from C1 thru the top of T1 level. No evid ence of acute fracture or dislocation. Prevertebral soft tissue is within normal limits. There is bor derline minimal grade 1 anterolisthesis of C3 on C4. Grade 1 anterolistheses are seen of C4 on C5 and C5 on C6. Multilevel disc space narrowing and disc osteophyte complexes, worst at C4-C5 and C5-C6. M ultilevel bony encroachment of the neural foramina bilaterally. Uncovertebral hypertrophy and facet a rthropathy at multiple levels. The base of the dens is within normal limits on the open mouth view. IMPRESSION: 1. No acute fracture or dislocation is seen in the cervical spine. 2. Multilevel degenerative changes and spondylolisthesis as above.
== END | disposition home or self-care (01) ==
LOC: RADXRMAIN 13:13
PROVIDERS: ATTEND Internal Medicine Geriatric Medicine
DX: M43.12 Spondylolisthesis, cervical region (principal); M47.812 Spondylosis without myelopathy or radiculopathy, cervical region
CPT/HCPCS: 72050

== ENCOUNTER → 2023-07-03 | Outpatient (CLI) | payer MEDICARE ==
--- NOTE | 2023-07-03 15:28 | BD ---
EXAMINATION TYPE: Axial Bone Density DATE OF EXAM: 07/03/2023 CLINICAL HISTORY: 77 years old Female. ICD-10 CODE: M81.0 AGE RELATED OSTEOPOROSIS Height: 66.2in Weight: 215lb FRAX RISK QUESTIONS: Family History (Parent hip fracture): yes Secondary Osteoporosis: RISK FACTORS HISTORY OF: MEDICATIONS: EXAM MEASUREMENTS: Bone mineral densitometry was performed using the [employer]. Bone mineral density as measured about the Lumbar spine is: ----- L1-L4(G/cm2): 1.655 T Score Values are as follows: ----- L1: 3.2 ----- L2: 3.7 ----- L3: 4.2 ----- L4: 4.5 ----- L1-L4: 4.0 Z Score Values are as follows: ----- L1: 3.9 ----- L2: 4.4 ----- L3: 4.9 ----- L4: 5.1 ----- L1-L4: 4.6 Previous 11-10-08 unavailable for comparison Bone mineral density about the R hip (g/cm2): 1.328 Bone mineral density about the L hip (g/cm2): 1.265 T Score values are as follows: -----R Neck: 1.7 -----L Neck: 1.9 -----R Total: 2.5 -----L Total: 2.0 Z Score values are as follows: -----R Neck: 3.0 -----L Neck: 3.2 -----R Total: 3.5 -----L Total: 3.0 Bone mineral density has: Decreased -1.8% since study of: 11-10-08 FRAX%s: The graph provided illustrates a 5.9% chance for a major osteoporotic fx and a 0.6% chance fo r the hips probability for fx in 10 years time. IMPRESSION: Normal (Values between +1 and -1 indicate normal bone mass). Consider repeating this study in 5 year s or sooner if there is some new clinical indication. NOTE: T-SCORE=SD OF THE YOUNG ADULT MEAN.
== END | disposition home or self-care (01) ==
LOC: RADBDWWP 08:53
PROVIDERS: ATTEND Internal Medicine Geriatric Medicine
DX: M81.0 Age-related osteoporosis without current pathological fracture (principal); Z78.0 Asymptomatic menopausal state
CPT/HCPCS: 77080

== ENCOUNTER 2023-09-05 10:13 | Observation (INO) | payer MEDICARE ==
--- NOTE | 2023-09-05 10:45 | ED ---
General Adult HPI - General Chief complaint: Chest Pain Stated complaint: Chest pain Time Seen by Provider: 09/05/23 10:23 Source: patient, family, RN notes reviewed Mode of arrival: ambulatory Limitations: no limitations - History of Present Illness Initial comments: Patient is a 77-year-old female presents emergency department with concerns with chest discomfort. Onset of symptoms was a week ago. Symptoms have been intermittent but worse over the past couple of days. Symptoms are somewhat worse with exertion. Discomfort now is mild. Discomfort is described as heaviness. There is associated dyspnea and nausea. No diaphoresis. Patient has been very fatigued. Patient does have history of previous cardiac problems and has a stent. - Related Data Home Medications Medication Instructions Recorded Confirmed Aspirin EC [Ecotrin Low Dose] 81 mg PO DAILY 12/30/15 09/05/23 Atorvastatin [Lipitor] 40 mg PO HS 12/30/15 09/05/23 INSULIN LISPRO (humaLOG) [humaLOG] 20 - 25 units SQ AC-SUPPER 12/30/15 09/05/23 INSULIN LISPRO (humaLOG) [humaLOG] 20 units SQ AC-BID@0700,1200 12/30/15 09/05/23 Insulin Glargine,Hum.rec.anlog 40 unit SQ HS 12/30/15 09/05/23 [Lantus Solostar Pen] Losartan Potassium 100 mg PO HS 12/30/15 09/05/23 Metoprolol Succinate [Toprol XL] 50 mg PO BID 12/30/15 09/05/23 Multivitamins, Thera [Multivitamin 1 tab PO DAILY 12/30/15 09/05/23 (formulary)] Nitroglycerin Sl Tabs [Nitrostat] 0.4 mg SUBLINGUAL Q5M PRN 12/30/15 09/05/23 amLODIPine [Norvasc] 2.5 mg PO DAILY 12/30/15 09/05/23 metFORMIN HCL [Glucophage] 850 mg PO DAILY 12/30/15 09/05/23 Albuterol Inhaler [Ventolin Hfa 2 puff INHALATION RT-Q6H PRN 06/05/18 09/05/23 Inhaler] Furosemide [Lasix] 20 mg PO DAILY 06/05/18 09/05/23 Acetaminophen Tab [Tylenol Tab] 500 mg PO Q6H PRN 09/05/23 09/05/23 Ascorbic Acid [Vitamin C] 500 mg PO DAILY 09/05/23 09/05/23 Cholecalciferol [Vitamin D3 (10 10 mcg PO DAILY 09/05/23 09/05/23 Mcg = 400 Iu)] Empagliflozin [Jardiance] 10 mg PO DAILY 09/05/23 09/05/23 Pregabalin [Lyrica] 75 mg PO BID-W/MEALS 09/05/23 09/05/23 Pregabalin [Lyrica] 150 mg PO HS 09/05/23 09/05/23 Tirzepatide [Mounjaro] 2.5 mg SQ TU 09/05/23 09/05/23 Ubidecarenone [Co Q-10] 300 mg PO DAILY 09/05/23 09/05/23 allopurinoL 100 mg PO DAILY 09/05/23 09/05/23 Allergies Allergy/AdvReac Type Severity Reaction Status Date / Time Penicillins Allergy Rash/Hives Verified 09/05/23 13:37 ragweed pollen Allergy Rash/Hives Verified 09/05/23 13:37 Review of Systems ROS Statement: Those systems with pertinent positive or pertinent negative responses have been documented in the HPI. ROS Other: All systems not noted in ROS Statement are negative. Constitutional: Denies: fever Eyes: Denies: eye pain ENT: Denies: ear pain Respiratory: Reports: as per HPI. Denies: cough Cardiovascular: Reports: as per HPI, chest pain, dyspnea on exertion Endocrine: Reports: fatigue Musculoskeletal: Denies: back pain Past Medical History Past Medical History: Coronary Artery Disease (CAD), Diabetes Mellitus, Hyperlipidemia, Hypertension, Sleep Apnea/CPAP/BIPAP Additional Past Medical History / Comment(s): arthritis, neuropathy, kidney sto diane, unstable angina,uses cpap History of Any Multi-Drug Resistant Organisms: None Reported Past Surgical History: Heart Catheterization With Stent, Hysterectomy Additional Past Surgical History / Comment(s): D and C X2, Cataract bilateral X2 Past Anesthesia/Blood Transfusion Reactions: Postoperative Nausea & Vomiting (PONV) Date of Last Stent Placement:: Past Psychological History: No Psychological Hx Reported Smoking Status: Never smoker Past Alcohol Use History: Rare Past Drug Use History: None Reported - Past Family History Mother Family Medical History: Coronary Artery Disease (CAD), Diabetes Mellitus Father Additional Family Medical History / Comment(s): emphysema,heart problems Sister(s) Family Medical History: Cancer, Diabetes Mellitus Additional Family Medical History / Comment(s): breast Brother(s) Family Medical History: Diabetes Mellitus, Myocardial Infarction ([place]) General Exam Limitations: no limitations General appearance: alert, in no apparent distress Head exam: Present: normocephalic Eye exam: Present: normal appearance Neck exam: Present: normal inspection Respiratory exam: Present: normal lung sounds bilaterally Cardiovascular Exam: Present: regular rate, normal rhythm Expanded Peripheral pulses: 2+: Radial (R), Radial (L), Dorsalis Pedis (R), Dorsalis Pedis (L) GI/Abdominal exam: Present: soft. Absent: tenderness Extremities exam: Present: normal inspection. Absent: pedal edema, calf tenderness Neurological exam: Present: alert Psychiatric exam: Present: normal affect, normal mood Skin exam: Present: normal color Course Vital Signs 09/05/23 10:14 Temperature 98.3 F Pulse Rate 74 Respiratory 20 Rate Blood Pressure 142/81 O2 Sat by Pulse 95 Oximetry EKG Findings - EKG Results: EKG: interpreted by ERMD (LVH criteria.), sinus rhythm, normal axis, normal ST/T Medical Decision Making - Medical Decision Making Was pt. sent in by a medical professional or institution (, PA, ASSOCIATE PROFESSOR OF HISTORY, urgent care, hospital, or skilled nursing...) When possible be specific @ -No Did you speak to anyone other than the patient for history (EMS, parent, family, police, friend...)? What history was obtained from this source @ -No Did you review nursing and triage notes (agree or disagree)? Why? @ -I reviewed and agree with nursing and triage notes Were old charts reviewed (outside hosp., previous admission, EMS record, old EKG, old radiological studies, urgent care reports/EKG's, skilled nursing records)? Report findings @ -No old charts were reviewed Differential Diagnosis (chest pain, altered mental status, abdominal pain women, abdominal pain men, vaginal bleeding, weakness, fever, dyspnea, syncope, headache, dizziness, GI bleed, back pain, seizure, CVA, palpatations, mental health, musculoskeletal)? @ -Differential Chest Pain: Stable Angina, Unstable Angina, STEMI, NSTEMI Aortic Dissection, Pneumothorax, Musculoskeletal, Esophageal Spasm GERD, Cholecystitis, Pancreatitis, Zoster, this is not meant to be an all-inclusive list. EKG interpreted by me (3pts min.). @ -As above X-rays interpreted by me (1pt min.). @ -2 view chest x-ray shows no acute process CT interpreted by me (1pt min.). @ -None done U/S interpreted by me (1pt. min.). @ -None done What testing was considered but not performed or refused? (CT, X-rays, U/S, labs)? Why? @ -Consider CT scan however GFR is low and patient will be having a VQ scan. What meds were considered but not given or refused? Why? @ -None Did you discuss the management of the patient with other professionals (professionals i.e. , PA, ASSOCIATE PROFESSOR OF HISTORY, lab, RT, psych nurse, social insurance adviser, contract loader, teacher, weapons officer, caseworker intake)? Give summary @ -Case was discussed in detail with Dr. Bernstein who will admit his patient Was smoking cessation discussed for >3mins.? @ -No Was critical care preformed (if so, how long)? @ -No Were there social determinants of health that impacted care today? How? (Homelessness, low income, unemployed, alcoholism, drug addiction, tra nsportation, low edu. Level, literacy, decrease access to med. care, [facility], rehab)? @ -No Was there de-escalation of care discussed even if they declined (Discuss DNR or withdrawal of care, Hospice)? DNR status @ -No What co-morbidities impacted this encounter? (DM, HTN, Smoking, COPD, CAD, Cancer, CVA, ARF, Chemo, Hep., AIDS, mental health diagnosis, sleep apnea, morbid obesity)? @ -History of coronary artery disease Was patient admitted / discharged? Hospital course, mention meds given and r oute, prescriptions, significant lab abnormalities, going to OR and other pertinent info. @ -Patient reevaluated and resting comfortably in bed. Discomfort has improved. Patient and family are updated on results and plan. Patient will be admitted with repeat cardiac testing. VQ scan will be ordered Undiagnosed new problem with uncertain prognosis? @ -No Drug Therapy requiring intensive monitoring for toxicity (Heparin, Nitro, Insulin, Cardizem)? @ -No Were any procedures done? @ -No Diagnosis/symptom? @ -Chest pain Acute, or Chronic, or Acute on Chronic? @ -Acute Uncomplicated (without systemic symptoms) or Complicated (systemic symptoms)? @ -Default Side effects of treatment? @ -No Exacerbation, Progression, or Severe Exacerbation? @ -No Poses a threat to life or bodily function? How? (Chest pain, [place], [place], pneumonia, PE, COPD, DKA, ARF, appy, cholecystitis, CVA, Diverticulitis, Homicidal, Suicidal, threat to staff... and all critical care pts) @ -Threat to cardiac function - Lab Data Result diagrams: 09/05/23 11:05 09/05/23 11:05 Lab Results 09/05/23 09/05/23 09/05/23 Range/Units 11:05 11: 11:05 WBC 6.0 (3.8-10.6) k/uL RBC 4.07 (3.80-5.40) m/uL Hgb 12.6 (11.4-16.0) gm/dL Hct 39.4 (34.0-46.0) % MCV 96.9 (80.0-100.0) fL MCH 31.0 (25.0-35.0) pg MCHC 32.0 (31.0-37.0) g/dL RDW 14.0 (11.5-15.5) % Plt Count 194 (150-450) k/uL MPV 8.6 Neutrophils % 59 % Lymphocytes % 28 % Monocytes % 7 % Eosinophils % 2 % Basophils % 1 % Neutrophils # 3.6 (1.3-7.7) k/uL Lymphocytes # 1.7 (1.0-4.8) k/uL Monocytes # 0.4 (0-1.0) k/uL Eosinophils # 0.1 (0-0.7) k/uL Basophils # 0.1 (0-0.2) k/uL PT 10.6 (10.0-12.5) sec INR 1.0 (<1.2) APTT 23.7 (22.0-30.0) sec D-Dimer 0.92 H (<0.60) mg/L FEU Sodium 140 (137-145) mmol/L Potassium 4.1 (3.5-5.1) mmol/L Chloride 106 (98-107) mmol/L Carbon Dioxide 23 (22-30) mmol/L Anion Gap 11 mmol/L BUN 33 H (7-17) mg/dL Creatinine 1.40 H (0.52-1.04) mg/dL Est GFR (CKD-EPI)AfAm 42 (>60 ml/min/1.73 sqM) Est GFR (CKD-EPI)NonAf 37 (>60 ml/min/1.73 sqM) Glucose 73 L (74-99) mg/dL POC Glucose (mg/dL) (70-110) mg/dL POC Glu Tax Lawyer ID Calcium 10.1 (8.4-10.2) mg/dL Magnesium 1.7 (1.6-2.3) mg/dL Total Bilirubin 0.7 (0.2-1.3) mg/dL AST 25 (14-36) U/L ALT 22 (4-34) U/L Alkaline Phosphatase 76 (38-126) U/L Troponin I (0.000-0.034) ng/mL NT-Pro-B Natriuret Pep 146 pg/mL Total Protein 7.8 (6.3-8.2) g/dL Albumin 4.6 (3.5-5.0) g/dL 09/05/23 09/05/23 Range/Units 11:05 12:26 WBC (3.8-10.6) k/uL RBC (3.80-5.40) m/uL Hgb (11.4-16.0) gm/dL Hct (34.0-46.0) % MCV (80.0-100.0) fL MCH (25.0-35.0) pg MCHC (31.0-37.0) g/dL RDW (11.5-15.5) % Plt Count (150-450) k/uL MPV Neutrophils % % Lymphocytes % % Monocytes % % Eosinophils % % Basophils % % Neutrophils # (1.3-7.7) k/uL Lymphocytes # (1.0-4.8) k/uL Monocytes # (0-1.0) k/uL Eosinophils # (0-0.7) k/uL Basophils # (0-0.2) k/uL PT (10.0-12.5) sec INR (<1.2) APTT (22.0-30.0) sec D-Dimer (<0.60) mg/L FEU Sodium (137-145) mmol/L Potassium (3.5-5.1) mmol/L Chloride (98-107) mmol/L Carbon Dioxide (22-30) mmol/L Anion Gap mmol/L BUN (7-17) mg/dL Creatinine (0.52-1.04) mg/dL Est GFR (CKD-EPI)AfAm (>60 ml/min/1.73 sqM) Est GFR (CKD-EPI)NonAf (>60 ml/min/1.73 sqM) Glucose (74-99) mg/dL POC Glucose (mg/dL) 59 L (70-110) mg/dL POC Glu Tax Lawyer ID Daphney Matos Calcium (8.4-10.2) mg/dL Magnesium (1.6-2.3) mg/dL Total Bilirubin (0.2-1.3) mg/dL AST (14-36) U/L ALT (4-34) U/L Alkaline Phosphatase (38-126) U/L Troponin I <0.012 (0.000-0.034) ng/mL NT-Pro-B Natriuret Pep pg/mL Total Protein (6.3-8.2) g/dL Albumin (3.5-5.0) g/dL Disposition Clinical Impression: Chest pain Disposition: ADMITTED IP TO THIS HOSP Is patient prescribed a controlled substance at d/c from ED?: No Referrals: Jeramy Lutz MD [Primary Care Provider] - 1-2 days Time of Disposition: 14:02
[2023-09-05] MEDS: ASPIRIN 81 MG PO STA (11:12)
[2023-09-05] MEDS: NITROGLYCERIN OINT 1 INCH/GM PACKET TOPICAL STA (11:13)
[2023-09-05 11:16] LABS: Basophils # (A) 0.1 k/uL (0-0.2); Basophils % (A) 1 %; Eosinophils # (A) 0.1 k/uL (0-0.7); Eosinophils % (A) 2 %; HCT 39.4 % (34.0-46.0); HGB 12.6 gm/dL (11.4-16.0); Lymphocytes # (A) 1.7 k/uL (1.0-4.8); Lymphocytes % (A) 28 %; MCV 96.9 fL (80.0-100.0); Mean Platelet Volume 8.6; Monocytes # (A) 0.4 k/uL (0-1.0); Monocytes % (A) 7 %; Neutrophils # (A) 3.6 k/uL (1.3-7.7); Neutrophils % (A) 59 %; Platelet Count 194 k/uL (150-450); RBC 4.07 m/uL (3.80-5.40)
[2023-09-05 11:30] LABS: ALT 22 U/L (4-34); AST 25 U/L (14-36); African American GFR (CKD) 42 (>60 ml/min/1.73 sqM); Albumin 4.6 g/dL (3.5-5.0); Alkaline Phosphatase 76 U/L (38-126); Anion Gap 11 mmol/L; Blood Urea Nitrogen 33 mg/dL (7-17); Calcium 10.1 mg/dL (8.4-10.2); Carbon Dioxide 23 mmol/L (22-30); Chloride 106 mmol/L (98-107); Glucose 73 mg/dL (74-99); Magnesium 1.7 mg/dL (1.6-2.3); Non-African American GFR(CKD) 37 (>60 ml/min/1.73 sqM); Potassium 4.1 mmol/L (3.5-5.1); Sodium 140 mmol/L (137-145); Total Bilirubin 0.7 mg/dL (0.2-1.3); Total Protein 7.8 g/dL (6.3-8.2)
[2023-09-05 11:32] LABS: Partial Thromboplastin Time 23.7 sec (22.0-30.0); Prothrombin Time 10.6 sec (10.0-12.5)
[2023-09-05 11:39] LABS: NT-Pro-B-Type Natriuretic Pept 146 pg/mL
--- NOTE | 2023-09-05 11:48 | XR ---
EXAMINATION TYPE: XR chest 2V DATE OF EXAM: 09/05/2023 COMPARISON: 06/05/2018 TECHNIQUE: PA and lateral views submitted. HISTORY: Chest pain FINDINGS: The lungs are clear and there is no pneumothorax, pleural effusion, or focal pneumonia. Heart size normal and no overt failure. Osseous structures demonstrate hypertrophic and degenerative changes of the spine. Mild hyperinflation lungs. The associated asthma or COPD. Left basilar atelectasis. IMPRESSION: 1. No acute process.
[2023-09-05 12:29] LABS: Glucose,Whole Blood 59 mg/dL (70-110)
[2023-09-05] MEDS ORDERED: ALBUTEROL HFA INHALER INHALATION PRN (14:02)
[2023-09-05] MEDS ORDERED: NITROGLYCERIN SL TABS 0.4 MG TAB SUBLINGUAL PRN (14:04)
[2023-09-05] MEDS: NON FORMULARY DRUG (Tirzepatide [Mounjaro] 2.5 MG/0.5 ML Pen.Injctr) SQ SCH (16:22)
--- NOTE | 2023-09-05 17:24 | NM ---
EXAMINATION TYPE: NM pul vent and perfuse DATE OF EXAM: 09/05/2023 CLINICAL INDICATION: Female, 77 years old with history of cp; COMPARISON: Chest x-ray September 05, 2023 TECHNIQUE: Utilizing inhalation of 39 mCi Tc 99m DTPA aerosol and intravenous injection of 4.8 mCi o f Tc 99m MAA, ventilation and perfusion images are acquired post injection in multiple projections. FINDINGS: Normal radiotracer distribution is noted in the lungs. There is no evidence of mismatched defects. IMPRESSION: No scintigraphic evidence for acute pulmonary embolism.
[2023-09-05] MEDS: PREGABALIN 75 MG CAP PO SCH ×2 (19:07→21:56)
[2023-09-05] MEDS: NITROGLYCERIN OINT 1 INCH/GM PACKET TOPICAL SCH (19:08)
[2023-09-05] MEDS: ACETAMINOPHEN TAB 500 MG TAB PO PRN (20:29)
[2023-09-05 20:30] LABS: Glucose,Whole Blood 155 mg/dL (70-110)
[2023-09-05] MEDS: ATORVASTATIN 40 MG TAB PO SCH (20:30)
[2023-09-05] MEDS: LOSARTAN 50 MG TAB PO SCH (20:30)
[2023-09-05] MEDS: METOPROLOL SUCCINATE (ER) 50 MG TAB.ER.24H PO SCH (20:30)
[2023-09-05] MEDS: INSULIN DETEMIR (LEVEMIR) 100 UNIT/ML SYR SQ SCH (23:00)
[2023-09-05 23:01] LABS: Glucose,Whole Blood 103 mg/dL (70-110)
--- NOTE | 2023-09-05 23:43 | P.HPIM ---
History of Present Illness H&P Date: 09/05/23 Chief Complaint: Chest pain and unstable angina HISTORY OF PRESENT ILLNESS: 77-year-old office patient with active medical history of coronary artery disease post angioplasty and stent placement x 3 last 1 was in 2017 at [facility], type 2 diabetes, chronic kidney disease, Charcot foot, sleep apnea on CPAP, hyperlipidemia, hypertension, chronic edema, chronic anemia, and diabetic nephropathy with diabetic neuropathy who has been seen at the endocrinology clinic at [facility] for many years for diabetic management also has been seen at the cardiology clinic at [facility] for long time. She was referred last 6 months to [facility] cardiology for recurrent history of chest pain along with shortness of breath for the possible need for heart cath done because of her kidney function slightly with abnormal decision at the time not to and to continue medical management. Patient has been doing well until the last 3 to 4 days when she developed to have much worsening chest pain in the left side radiating toward the left shoulder and jaw and sometimes had an intense pain and discomfort with exertion associated with shortness of breath, mild lightheadedness and dizziness, mild palpitation nausea. Today her symptoms become a lot worse with minimal exertion ended up calling the office to see if she can stop by for an EKG and was highly advised to come to the emergency department to be evaluated. Patient ended up coming to the emergency department where was seen and evaluated her for CK with troponin Was negative, EKG did not show any major abnormality, her D-dimer was elevated and ended up going for VQ scan came back negative for PE, kidney function test close to her baseline for the last few months with creatinine at 1.4 GFR of 37. Patient was hospitalized for unstable angina and recurrent chest pain we have CK with troponin x 3, repeat EKG in the morning, see cardiology and possibly plan further intervention including not limited to heart catheter if possible. Patient risk factor including strong family history, age, previous history of coronary artery disease with multiple angioplasty and stent placement last time was in 2017, history of hypertension, hyperlipidemia, type 2 diabetes. She is not a smoker. When sharing all the risk factors and component to the patient at the time she was to some degree surprises but because of what been told at [facility] that with her kidney function it is not worth taking the risk patient will have to think about this before making decision for any invasive. REVIEW OF SYSTEMS: CONSTITUTIONAL: Well-developed no acute respiratory distress. EYES: No icterus sclerae, no conjunctivitis. EARS, NOSE, MOUTH, THROAT, and FACE: No sore throat, lymphadenopathy, carotid bruits or deformity. RESPIRATORY: Positive chest pain with shortness of breath no cough or wheezes. CARDIOVASCULAR: Positive chest pain with palpitation PND and orthopnea positive angina. GASTROINTESTINAL: No Abd pain, Nausea or vomiting, no Diarrhea or constipation, No GI Bleed, no distention or masses. GENITOURINARY: Negative for Hematuria or UTI, no kidney stones. INTEGUMENT/BREAST: Negative for any muscular injury with mild osteoarthritis.. HEMATOLOGIC/LYMPHATIC: Negative for bleed or purpura. MUSCULOSKELTAL: Negative for generalized myalgia and arthralgia with bilateral slight deformity of both feet worse in the left side with charcoaled foot. No ulcer or open area. NEURLOGICAL: No LOC, Sz or syncope, blurred vision dizziness or abnormality.. BEHAVIORAL/PSYCH: Negative. ENDOCRINE: Negative. PHYSICAL EXAMINATION: General Appearance: Alert, cooperative, no distress, appears stated age. Neck HEENT: Supple, no lymphadenopathy, no thyroid enlargement, no carotid bruits. Lungs: Decreased breath sound bilaterally with fine rhonchi no crackles or wheezes. Chest Wall: Decreased expansion with deep inspiration no tenderness and no deformity was found on exam, no costochondral pain or discomfort. Heart: Regular rate and rhythm, S1, S2 normal, no murmur, rub or gallop. Back: Symmetric, no curvature, ROM normal, no CVA tenderness. Abdomen: Soft, non-tender, bowel sounds active all four quadrants, no masses, no organomegaly. Extremities: Trace edema bilaterally positive pulses in the dorsalis pedis, she had charcoaled foot with quite high sensitivity and mildly abnormal arch in both side. Pulses: 2+ and symmetric. Skin: Skin color, texture, tugor normal, no rashes or lesions. Neurologic: Alert oriented x3 cranial nerves II through XII intact, no motor def icit, no abnormal balance or gait. ASSESSMENT AND PLAN: _Unstable angina: Patient has been having recurrent chest pain with exertion with multi risk factor cecal troponin is negative patient exertion is limited at this point further testing might need to be done and I believe she had at [facility] nuclear stress test not too long ago and was normal or not conclusive but it decided to time not to pursue this really further invasive because of the kidney function. She is to continue on aspirin, statin, beta- jason no anticoagulation at this point unless have recurrent chest pain or elevated troponin. _Multiple coronary artery disease post angioplasty and stent placement: Has been On medical management with amlodipine, metoprolol, losartan Jardiance and atorvastatin. Will continue medication and try to keep systolic blood pressure below 130 and LDL below 70. Again with all risk factor patient remains along with recurrent chest pain probably need to do invasive might be the best option. _Type 2 diabetes: Has been doing well on combination of Lantus 40 units at nighttime NovoLog 20 units in the morning and at noon time and 25 units at dinnertime, also still on Jardiance 10 mg a day and metformin. And still on GLP-1 with Mounjaro 2.5 mg a day. _Hypertension: Well-controlled on amlodipine, losartan 100 mg daily, Toprol-XL 50 mg twice a day will continue medication. _Hyperlipidemia: Continue atorvastatin 40 mg a day with target for LDL below 70. _Chronic peripheral neuropathy: Has been doing well on pregabalin 75 mg twice a day and 150 mg at bedtime. _Anasarca and edema: Has been on furosemide 20 mg a day. _Stage IIIa chronic kidney disease: With fluctuation between stage II and stage IIIb, continue gentle hydration watch kidney function carefully at this point. _Recurrent history of gout: Has been on allopurinol up to 200 mg daily uric acid to be watched carefully. _Reactive airway/asthma: Aggravated by hiatal hernia has been on Ventolin inhaler on demand. _Severe GERD/hiatal hernia with GI prophylaxis: Will add pantoprazole 40 mg daily. _DVT prophylaxis: Early mobilization and knee-high ETELVINA hose. CODE STATUS: Full code. Admit patient to the inpatient service for 1-2 nights stays. Past Medical History Past Medical History: Coronary Artery Disease (CAD), Diabetes Mellitus, Hyperlipidemia, Hypertension, Sleep Apnea/CPAP/BIPAP Additional Past Medical History / Comment(s): arthritis, neuropathy, kidney stones, unstable angina,uses cpap History of Any Multi-Drug Resistant Organisms: None Reported Past Surgical History: Heart Catheterization With Stent, Hysterectomy Additional Past Surgical History / Comment(s): D and C X2, Cataract bilateral X2 Past Anesthesia/Blood Transfusion Reactions: Postoperative Nausea & Vomiting (PONV) Date of Last Stent Placement:: Past Psychological History: No Psychological Hx Reported Smoking Status: Never smoker Past Alcohol Use History: Rare Past Drug Use History: None Reported - Past Family History Mother Family Medical History: Coronary Artery Disease (CAD), Diabetes Mellitus Father Additional Family Medical History / Comment(s): emphysema,heart problems Sister(s) Family Medical History: Cancer, Diabetes Mellitus Additional Family Medical History / Comment(s): breast Brother(s) Family Medical History: Diabetes Mellitus, Myocardial Infarction ([place]) Medications and Allergies Home Medications Medication Instructions Recorded Confirmed Type Aspirin EC [Ecotrin Low Dose] 81 mg PO DAILY 12/30/15 09/05/23 History Atorvastatin [Lipitor] 40 mg PO HS 12/30/15 09/05/23 History INSULIN LISPRO (humaLOG) [humaLOG] 20 - 25 units SQ AC-SUPPER 12/30/15 09/05/23 History INSULIN LISPRO (humaLOG) [humaLOG] 20 units SQ AC-BID@0700,1200 12/30/15 09/05/23 History Insulin Glargine,Hum.rec.anlog 40 unit SQ HS 12/30/15 09/05/23 History [Lantus Solostar Pen] Losartan Potassium 100 mg PO HS 12/30/15 09/05/23 History Metoprolol Succinate [Toprol XL] 50 mg PO BID 12/30/15 09/05/23 History Multivitamins, Thera [Multivitamin 1 tab PO DAILY 12/30/15 09/05/23 History (formulary)] Nitroglycerin Sl Tabs [Nitrostat] 0.4 mg SUBLINGUAL Q5M PRN 12/30/15 09/05/23 History amLODIPine [Norvasc] 2.5 mg PO DAILY 12/30/15 09/05/23 History metFORMIN HCL [Glucophage] 850 mg PO DAILY 12/30/15 09/05/23 History Albuterol Inhaler [Ventolin Hfa 2 puff INHALATION RT-Q6H PRN 06/05/18 09/05/23 History Inhaler] Furosemide [Lasix] 20 mg PO DAILY 06/05/18 09/05/23 History Acetaminophen Tab [Tylenol Tab] 500 mg PO Q6H PRN 09/05/23 09/05/23 History Ascorbic Acid [Vitamin C] 500 mg PO DAILY 09/05/23 09/05/23 History Cholecalciferol [Vitamin D3 (10 10 mcg PO DAILY 09/05/23 09/05/23 History Mcg = 400 Iu)] Empagliflozin [Jardiance] 10 mg PO DAILY 09/05/23 09/05/23 History Pregabalin [Lyrica] 75 mg PO BID-W/MEALS 09/05/23 09/05/23 History Pregabalin [Lyrica] 150 mg PO HS 09/05/23 09/05/23 History Tirzepatide [Mounjaro] 2.5 mg SQ TU 09/05/23 09/05/23 History Ubidecarenone [Co Q-10] 300 mg PO DAILY 09/05/23 09/05/23 History allopurinoL 100 mg PO DAILY 09/05/23 09/05/23 History Allergies Allergy/AdvReac Type Severity Reaction Status Date / Time Penicillins Allergy Rash/Hives Verified 09/05/23 13:37 ragweed pollen Allergy Rash/Hives Verified 09/05/23 13:37 Physical Exam Vitals: Vital Signs Temp Pulse Resp BP Pulse Ox 09/05/23 10:14 98.3 F 74 20 142/81 95 Intake and Output 09/05/23 09/05/23 09/05/23 06:59 14:59 22:59 Other: Weight 96.162 kg Results CBC & Chem 7: 09/05/23 11:05 09/05/23 11:05 Labs: Abnormal Lab Results - Last 24 Hours (Table) 09/05/23 09/05/23 09/05/23 Range/Units 11:05 11:05 12:26 D-Dimer 0.92 H (<0.60) mg/L FEU BUN 33 H (7-17) mg/dL Creatinine 1.40 H (0.52-1.04) mg/dL Glucose 73 L (74-99) mg/dL POC Glucose (mg/dL) 59 L (70-110) mg/dL
[2023-09-06 06:06] LABS: Glucose,Whole Blood 133 mg/dL (70-110)
[2023-09-06 07:44] LABS: ALT 19 U/L (4-34); AST 21 U/L (14-36); African American GFR (CKD) 50 (>60 ml/min/1.73 sqM); Albumin 3.9 g/dL (3.5-5.0); Albumin/Globulin Ratio 1.4; Alkaline Phosphatase 73 U/L (38-126); Anion Gap 8 mmol/L; Blood Urea Nitrogen 31 mg/dL (7-17); Calcium 9.6 mg/dL (8.4-10.2); Carbon Dioxide 21 mmol/L (22-30); Chloride 109 mmol/L (98-107); Globulin 2.7 g/dL; Glucose 138 mg/dL (74-99); Non-African American GFR(CKD) 44 (>60 ml/min/1.73 sqM); Potassium 4.3 mmol/L (3.5-5.1); Sodium 138 mmol/L (137-145); Total Bilirubin 0.7 mg/dL (0.2-1.3); Total Protein 6.6 g/dL (6.3-8.2)
[2023-09-06 07:59] LABS: Basophils % (A) 1 %; Eosinophils # (A) 0.1 k/uL (0-0.7); Eosinophils % (A) 2 %; HCT 34.6 % (34.0-46.0); HGB 11.7 gm/dL (11.4-16.0); Lymphocytes # (A) 1.4 k/uL (1.0-4.8); Lymphocytes % (A) 26 %; MCH 32.3 pg (25.0-35.0); MCHC 33.8 g/dL (31.0-37.0); MCV 95.4 fL (80.0-100.0); Monocytes # (A) 0.4 k/uL (0-1.0); Monocytes % (A) 8 %; Neutrophils # (A) 3.2 k/uL (1.3-7.7); Neutrophils % (A) 60 %; Platelet Count 183 k/uL (150-450); RBC 3.62 m/uL (3.80-5.40); RDW 14.3 % (11.5-15.5); WBC 5.3 k/uL (3.8-10.6)
[2023-09-06] MEDS ORDERED: DOBUTamine DRIP for NUC MED 500 MG/250 ML BAG IV ONE (08:00)
[2023-09-06] MEDS ORDERED: DOBUTamine DRIP for NUC MED 500 MG in DEXTROSE/WATER 1 250ML.BAG IV PRN (08:58)
[2023-09-06] MEDS ORDERED: NON FORMULARY DRUG (Ubidecarenone [Co Q-10] 300 MG Capsule) PO SCH (09:00)
[2023-09-06] MEDS ORDERED: allopurinoL 100 MG TAB PO SCH (09:00)
[2023-09-06] MEDS ORDERED: metFORMIN 850 MG TAB PO SCH (09:00)
[2023-09-06 10:37] LABS: Chol/HDL Ratio 4.49 Ratio; HDL Cholesterol 38.3 mg/dL (40.00-60.00); VLDL Calculation 92.6 mg/dL (5.00-40.00)
[2023-09-06] MEDS: INSULIN ASPART (NovoLOG) 100 UNIT/ML VIAL SQ SCH ×2 (10:49→18:47)
[2023-09-06 11:20] LABS: LDL Cholesterol,Direct Reflex 52.5 mg/dL (0.00-129.00)
[2023-09-06] MEDS ORDERED: ATROPINE SULFATE 0.1 MG/ML 10ML SYRINGE ONE (12:20)
--- NOTE | 2023-09-06 12:25 | P.CRDCN ---
History of Present Illness Consult date: 09/06/23 Consult reason: chest pain History of present illness: This is a 77-year-old female follows with Dr. Christina in [place] with past medical history of coronary artery disease status post stent placement to the LAD at [facility], diabetes mellitus type 2, hypertension, dyslipidemia, obesity. We have been asked to evaluate the patient for chest pain. Patient states that she has been very busy with a lot of stress in her family, not sleeping well and last week she developed pressure in her chest. She continued has chest pain on Monday and Monday and call Dr. Lutz and was sent into the hospital. She states it felt like somebody was sitting on her chest and it was hard to breathe. It lasted for couple hours. She also had hea viness in the left arm. Patient currently has no chest pain at the time of this evaluation. EKG: Sinus rhythm with no acute ST changes. Chest x-ray: No acute process Laboratory studies: WBC 5.3, hemoglobin 11.7, sodium 138, potassium 4.3, BUN 31 creatinine 1.22. Troponin negative x 3. proBNP 146. Triglycerides 463, cholesterol 172, LDL 52, HDL 38. Home cardiac medications: Amlodipine 2.5 mg daily, aspirin 81 mg daily, Lipitor 40 mg at bedtime, Jardiance 10 mg daily, Lasix 20 mg daily, losartan 100 mg at bedtime, metoprolol succinate 50 mg twice daily, Nitrostat as needed, patient also on Mounjaro. Echocardiogram performed 06/06/2018 reveals EF of 55 to 60%, mild concentric left ventricular hypertrophy, no aortic stenosis or regurgitation. Mild mitral regurgitation. Review Of Systems: At the time of my exam: CONSTITUTIONAL: Denies fever or chills. HEENT: Denies blurred vision, vision changes, or eye pain. Denies hemoptysis CARDIOVASCULAR: Denies chest pain. Denies orthopnea. Denies PND. Denies palpitations RESPIRATORY: Denies shortness of breath. GASTROINTESTINAL: Denies abdominal pain. Denies nausea or vomiting. HEMATOLOGIC: Denies bleeding disorders. GENITOURINARY: Denies any blood in urine. SKIN: Denies puritis. Denies rash. Physical examination: Gen: This is a 77-year-old female in no acute distress VS: reviewed, blood pressure 102/55, heart rate 71, pulse ox 96% on room air. HEENT: Head is atraumatic, normocephalic. Pupils equal, round. Sclerae is anicteric. NECK: Supple. No JVD. LUNGS: Clear to auscultation. No wheezes or rhonchi. No intercostal retract ions. HEART: Regular rate and rhythm. Systolic ejection murmur at the base. ABDOMEN: Soft No tenderness. EXTREMITIES: No pedal edema. No calf tenderness. NEUROLOGICAL: Patient is awake, alert and oriented x3. Assessment: Atypical chest pain, acute coronary syndrome ruled out with normal troponins and EKG History of coronary artery disease with previous stenting Diabetes mellitus type 2 Hypertension Dyslipidemia Obesity Plan: Resume patient's home cardiac medications Schedule patient for dobutamine stress echocardiogram today Obtain 2-D echocardiogram and Doppler study to assess cardiac structure and function If testing is unremarkable, patient is cleared for discharge and may follow-up with her primary md psychiatry, Dr. Christina, in 1 week. Thank you kindly for this consultation. Nurse practitioner note has been reviewed, I agree with documented findings and plan of care. Patient was seen and examined. Past Medical History Past Medical History: Coronary Artery Disease (CAD), Diabetes Mellitus, Hyperlipidemia, Hypertension, Sleep Apnea/CPAP/BIPAP Additional Past Medical History / Comment(s): arthritis, neuropathy, kidney stones, unstable angina,uses cpap History of Any Multi-Drug Resistant Organisms: None Reported Past Surgical History: Heart Catheterization With Stent, Hysterectomy Additional Past Surgical History / Comment(s): D and C X2, Cataract bilateral X2 Past Anesthesia/Blood Transfusion Reactions: Postoperative Nausea & Vomiting (PONV) Date of Last Stent Placement:: Past Psychological History: No Psychological Hx Reported Smoking Status: Never smoker Past Alcohol Use History: Rare Past Drug Use History: None Reported - Past Family History Mother Family Medical History: Coronary Artery Disease (CAD), Diabetes Mellitus Father Additional Family Medical History / Comment(s): emphysema,heart problems Sister(s) Family Medical History: Cancer, Diabetes Mellitus Additional Family Medical History / Comment(s): breast Brother(s) Family Medical History: Diabetes Mellitus, Myocardial Infarction ([place]) Medications and Allergies Home Medications Medication Instructions Recorded Confirmed Type Aspirin EC [Ecotrin Low Dose] 81 mg PO DAILY 12/30/15 09/05/23 History Atorvastatin [Lipitor] 40 mg PO HS 12/30/15 09/05/23 History INSULIN LISPRO (humaLOG) [humaLOG] 20 - 25 units SQ AC-SUPPER 12/30/15 09/05/23 History INSULIN LISPRO (humaLOG) [humaLOG] 20 units SQ AC-BID@0700,1200 12/30/15 09/05/23 History Insulin Glargine,Hum.rec.anlog 40 unit SQ HS 12/30/15 09/05/23 History [Lantus Solostar Pen] Losartan Potassium 100 mg PO HS 12/30/15 09/05/23 History Metoprolol Succinate [Toprol XL] 50 mg PO BID 12/30/15 09/05/23 History Multivitamins, Thera [Multivitamin 1 tab PO DAILY 12/30/15 09/05/23 History (formulary)] Nitroglycerin Sl Tabs [Nitrostat] 0.4 mg SUBLINGUAL Q5M PRN 12/30/15 09/05/23 History amLODIPine [Norvasc] 2.5 mg PO DAILY 12/30/15 09/05/23 History metFORMIN HCL [Glucophage] 850 mg PO DAILY 12/30/15 09/05/23 History Albuterol Inhaler [Ventolin Hfa 2 puff INHALATION RT-Q6H PRN 06/05/18 09/05/23 History Inhaler] Furosemide [Lasix] 20 mg PO DAILY 06/05/18 09/05/23 History Acetaminophen Tab [Tylenol Tab] 500 mg PO Q6H PRN 09/05/23 09/05/23 History Ascorbic Acid [Vitamin C] 500 mg PO DAILY 09/05/23 09/05/23 History Cholecalciferol [Vitamin D3 (10 10 mcg PO DAILY 09/05/23 09/05/23 History Mcg = 400 Iu)] Empagliflozin [Jardiance] 10 mg PO DAILY 09/05/23 09/05/23 History Pregabalin [Lyrica] 75 mg PO BID-W/MEALS 09/05/23 09/05/23 History Pregabalin [Lyrica] 150 mg PO HS 09/05/23 09/05/23 History Tirzepatide [Mounjaro] 2.5 mg SQ TU 09/05/23 09/05/23 History Ubidecarenone [Co Q-10] 300 mg PO DAILY 09/05/23 09/05/23 History allopurinoL 100 mg PO DAILY 09/05/23 09/05/23 History Allergies Allergy/AdvReac Type Severity Reaction Status Date / Time Penicillins Allergy Rash/Hives Verified 09/05/23 13:37 ragweed pollen Allergy Rash/Hives Verified 09/05/23 13:37 Physical Exam Vitals: Vital Signs Temp Pulse Pulse Resp BP BP Pulse Ox 09/06/23 08:04 98.4 F 71 16 102/55 96 09/06/23 03:00 65 16 110/49 96 09/05/23 23:32 73 18 115/60 97 09/05/23 21:57 69 16 110/66 96 09/05/23 19:10 74 16 114/91 96 09/05/23 10:14 98.3 F 74 20 142/81 95 Results 09/06/23 06:38 09/06/23 06:38 Cardiac Enzymes 09/05/23 09/05/23 09/05/23 Range/Units 11:05 11:05 14:39 AST 25 (14-36) U/L Troponin I <0.012 0.012 (0.000-0.034) ng/mL 09/05/23 09/06/23 Range/Units 17:21 06:38 AST 21 (14-36) U/L Troponin I <0.012 (0.000-0.034) ng/mL Coagulation 09/05/23 Range/Units 11:05 PT 10.6 (10.0-12.5) sec APTT 23.7 (22.0-30.0) sec CBC 09/05/23 09/06/23 Range/Units 11:05 06:38 WBC 6.0 5.3 (3.8-10.6) k/uL RBC 4.07 3.62 L (3.80-5.40) m/uL Hgb 12.6 11.7 (11.4-16.0) gm/dL Hct 39.4 34.6 (34.0-46.0) % Plt Count 194 183 (150-450) k/uL Comprehensive Metabolic Panel 09/05/23 09/06/23 Range/Units 11:05 06:38 Sodium 140 138 (137-145) mmol/L Potassium 4.1 4.3 (3.5-5.1) mmol/L Chloride 106 109 H (98-107) mmol/L Carbon Dioxide 23 21 L (22-30) mmol/L BUN 33 H 31 H (7-17) mg/dL Creatinine 1.40 H 1.22 H (0.52-1.04) mg/dL Glucose 73 L 138 H (74-99) mg/dL Calcium 10.1 9.6 (8.4-10.2) mg/dL AST 25 21 (14-36) U/L ALT 22 19 (4-34) U/L Alkaline Phosphatase 76 73 (38-126) U/L Total Protein 7.8 6.6 (6.3-8.2) g/dL Albumin 4.6 3.9 (3.5-5.0) g/dL Current Medications Generic Name Dose Route Start Last Admin Trade Name Freq PRN Reason Stop Dose Admin Acetaminophen 500 mg 09/05/23 14:02 09/05/23 20:29 Acetaminophen Tab 500 Mg Tab PO 500 mg Q6H PRN Administration Pain or Fever > 100.5 Albuterol Sulfate 2 puff 09/05/23 14:02 Albuterol Hfa Inhaler INHALATION RT-Q6H PRN Shortness Of Breath Allopurinol 200 mg 09/06/23 09:00 Allopurinol 100 Mg Tab PO DAILY [facility] Amlodipine Besylate 2.5 mg 09/06/23 09:00 Amlodipine 2.5 Mg Tab PO DAILY [facility] Ascorbic Acid 500 mg 09/06/23 09:00 Ascorbic Acid 500 Mg Tab PO DAILY [facility] Aspirin 325 mg 09/06/23 09:00 Aspirin 325 Mg Tab PO DAILY [facility] Atorvastatin Calcium 40 mg 09/05/23 21:00 09/05/23 20:30 Atorvastatin 40 Mg Tab PO 40 mg HS [facility] Administration Cholecalciferol 10 mcg 09/06/23 09:00 Cholecalciferol 10 Mcg (400 Iu) Tablet PO DAILY [facility] Dapagliflozin 5 mg 09/06/23 09:00 Dapagliflozin Propanediol 5 Mg Tablet PO DAILY [facility] Furosemide 20 mg 09/06/23 09:00 Furosemide 20 Mg Tab PO DAILY [facility] Insulin Aspart 20 unit 09/06/23 07:00 Insulin Aspart (Novolog) 100 Unit/Ml Vial SQ AC-BID@0700,1200 [facility] Insulin Detemir 40 unit 09/05/23 21:00 09/05/23 23:00 Insulin Detemir (Levemir) 100 Unit/Ml Syr SQ Not Given HS [facility] Losartan Potassium 100 mg 09/05/23 21:00 09/05/23 20:30 Losartan 50 Mg Tab PO 100 mg HS SANDRA Administration Metoprolol Succinate 50 mg 09/05/23 21:00 09/05/23 20:30 Metoprolol Succinate (Er) 50 Mg Tab.Er.24h PO 50 mg BID SANDRA Administration Multivitamins 1 each 09/06/23 09:00 Multivitamins, Thera 1 Each Tab PO DAILY [facility] Nitroglycerin 1 inch 09/05/23 18:00 09/06/23 06:34 Nitroglycerin Oint 1 Inch/Gm Packet TOPICAL 1 inch Q6HR SANDRA Administration Nitroglycerin 0.4 mg 09/05/23 14:04 Nitroglycerin Sl Tabs 0.4 Mg Tab SUBLINGUAL Q5M PRN Chest Pain Non-Formulary Medication 2.5 mg 09/05/23 14:15 09/05/23 16:22 Tirzepatide [Mounjaro] SQ Not Given [facility] Pantoprazole Sodium 40 mg 09/06/23 07:30 Pantoprazole 40 Mg Tablet PO AC-BRKFST [facility] Pregabalin 75 mg 09/05/23 17:30 09/05/23 19:07 Pregabalin 75 Mg Cap PO 75 mg BID-W/MEALS [facility] Administration Pregabalin 150 mg 09/05/23 21:00 09/05/23 21:56 Pregabalin 75 Mg Cap PO 150 mg HS SANDRA Administration 09/06/23 06:38 09/06/23 06:38
--- NOTE | 2023-09-06 12:54 | CA ---
Transthoracic Echo Report Name: Arabella Jackson Age: 77 Gender: F : 1945 Exam Date: 09/06/2023 10:25 Exam Location: [facility] Ht (in): 68 Wt (lb): 212 Ordering Physician: Ramírez Ruiz DO Attending/Referring Phys: Publication Designer Ary Doran RDCS Procedure CPT: Indications: CP Cardiac Hx: Technical Quality: Fair Contrast 1: Total Dose (mL): Contrast 2: Total Dose (mL): MEASUREMENTS (Male / Female) Normal Values 2D ECHO LV Diastolic Diameter PLAX 3.6 cm 4.2 - 5.9 / 3.9 - 5.3 cm LV Systolic Diameter PLAX 2.4 cm IVS Diastolic Thickness 1.3 cm 0.6 - 1.0 / 0.6 - 0.9 cm LVPW Diastolic Thickness 1.1 cm 0.6 - 1.0 / 0.6 - 0.9 cm LV Relative Wall Thickness 0.7 LA Volume 38.2 cm??? 18 - 58 / 22 - 52 cm??? LA Volume Index 17.5 cm???/m??? 16 - 28 cm???/m??? M-MODE Aortic Root Diameter MM 2.9 cm LA Systolic Diameter MM 2.9 cm LA Ao Ratio MM 1.0 DOPPLER AV Peak Velocity 127.8 cm/s AV Peak Gradient 6.5 mmHg AV Mean Gradient 3.2 mmHg AV Velocity Time Integral 25.2 cm LVOT Peak Velocity 106.4 cm/s LVOT Peak Gradient 4.5 mmHg LVOT Velocity Time Integral 22.5 cm Mitral E Point Velocity 62.3 cm/s Mitral A Point Velocity 84.2 cm/s Mitral E to A Ratio 0.7 MV Deceleration Time 236.1 ms FINDINGS Left Ventricle Mildly increased left ventricular wall thickness. Left ventricular cavity size normal. Normal left ventricular systolic function with no obvious regional wall motion abnormalities. Left ventricular ejection fraction is estimated at 55-60 %. Grade 1 diastolic dysfunction. Right Ventricle Mild right ventricular dilatation. Right ventricular systolic pressure within normal limits. Right Atrium Normal right atrial size. Left Atrium Normal left atrial size. Mitral Valve Structurally normal mitral valve. Mitral valve thickened. Trace mitral annular calcification. Mild mitral regurgitation. Aortic Valve Trileaflet aortic valve. No aortic valve stenosis or regurgitation. Tricuspid Valve Structurally normal tricuspid valve. Trace tricuspid regurgitation. Pulmonic Valve Structurally normal pulmonic valve. Trace pulmonic regurgitation. Pericardium No pericardial effusion. Aorta Normal size aortic root and proximal ascending aorta. CONCLUSIONS Technically difficult study with suboptimal acoustic windows on account of body habitus LVH with preserved systolic function ejection fraction 60% Mild RV enlargement No significant structural valvular abnormality Previewed by: Dr. Manny Huffman MD (Electronically Signed) Final Date: 06 September 2023 12:53
[2023-09-06] MEDS: PANTOPRAZOLE 40 MG TABLET PO SCH (13:06)
[2023-09-06] MEDS: allopurinoL 100 MG TAB PO SCH (13:06)
[2023-09-06] MEDS: DAPAGLIFLOZIN PROPANEDIOL 5 MG TABLET PO SCH (13:06)
[2023-09-06] MEDS: MULTIVITAMINS, THERA 1 EACH TAB PO SCH (13:06)
[2023-09-06] MEDS: FUROSEMIDE 20 MG TAB PO SCH (13:06)
[2023-09-06] MEDS: ASCORBIC ACID 500 MG TAB PO SCH (13:07)
[2023-09-06] MEDS: ASPIRIN 325 MG TAB PO SCH (13:07)
[2023-09-06] MEDS: CHOLECALCIFEROL 10 MCG (400 IU) TABLET PO SCH (13:41)
[2023-09-06] MEDS: amLODIPine 2.5 MG TAB PO SCH (13:41)
[2023-09-06 18:44] LABS: Glucose,Whole Blood 155 mg/dL (70-110)
[2023-09-06 20:25] LABS: Glucose,Whole Blood 159 mg/dL (70-110)
--- NOTE | 2023-09-06 22:48 | P.PN ---
Subjective Progress Note Date: 09/06/23 HISTORY OF PRESENT ILLNESS: 77-year-old office patient with active medical history of coronary artery disease post angioplasty and stent placement x 3 last 1 was in 2017 at [facility], type 2 diabetes, chronic kidney disease, Charcot foot, sleep apnea on CPAP, hyperlipidemia, hypertension, chronic edema, chronic anemia, and diabetic nephropathy with diabetic neuropathy who has been seen at the endocrinology clinic at [facility] for many years for diabetic management also has been seen at the cardiology clinic at [facility] for long time. She was referred last 6 months to [facility] cardiology for recurrent history of chest pain along with shortness of breath for the possible need for heart cath done because of her kidney function slightly with abnormal decision at the time not to and to continue medical management. Patient has been doing well until the last 3 to 4 days when she developed to have much worsening chest pain in the left side radiating toward the left shoulder and jaw and sometimes had an intense pain and discomfort with exertion associated with shortness of breath, mild lightheadedness and dizziness, mild palpitation nausea. Today her symptoms become a lot worse with minimal exertion ended up calling the office to see if she can stop by for an EKG and was highly advised to come to the emergency department to be evaluated. Patient ended up coming to the emergency department where was seen and evaluated her for CK with troponin Was negative, EKG did not show any major abnormality, her D-dimer was elevated and ended up going for VQ scan came back negative for PE, kidney function test close to her baseline for the last few months with creatinine at 1.4 GFR of 37. Patient was hospitalized for unstable angina and recurrent chest pain we have CK with troponin x 3, repeat EKG in the morning, see cardiology and possibly plan further intervention including not limited to heart catheter if possible. Patient risk factor including strong family history, age, previous history of coronary artery disease with multiple angioplasty and stent placement last time was in 2017, history of hypertension, hyperlipidemia, type 2 diabetes. She is not a smoker. When sharing all the risk factors and component to the patient at the time she was to some degree surprises but because of what been told at [facility] that with her kidney function it is not worth taking the risk patient will have to think about this before making decision for any invasive. 09/06/2023: Patient was kept in the hospital to see cardiology today and apparently was convinced to go for an echocardiogram and nuclear stress test. Patient medication has not been changed at this point blood sugar has been much better. Her fear still of the effect of the eye on the kidney function kidney failure is terrifying her at this point despite The improvement of kidney function from yesterday with GFR today up to 44 creatinine down to 1.22. Will continue current management continue aggressive management for diabetes awaiting for the final recommendation with cardiology because of stress test is positive on marginal patient be recommended to go for heart catheter also she is resting comfortable in bed still having slight tightness some discomfort with exertion. REVIEW OF SYSTEMS: CONSTITUTIONAL: Well-developed no acute respiratory distress. EYES: No icterus sclerae, no conjunctivitis. EARS, NOSE, MOUTH, THROAT, and FACE: No sore throat, lymphadenopathy, carotid bruits or deformity. RESPIRATORY: Positive chest pain with shortness of breath no cough or wheezes. CARDIOVASCULAR: Positive chest pain with palpitation PND and orthopnea positive angina. GASTROINTESTINAL: No Abd pain, Nausea or vomiting, no Diarrhea or constipation, No GI Bleed, no distention or masses. GENITOURINARY: Negative for Hematuria or UTI, no kidney stones. INTEGUMENT/BREAST: Negative for any muscular injury with mild osteoarthritis.. HEMATOLOGIC/LYMPHATIC: Negative for bleed or purpura. MUSCULOSKELTAL: Negative for generalized myalgia and arthralgia with bilateral slight deformity of both feet worse in the left side with charcoaled foot. No ulcer or open area. NEURLOGICAL: No LOC, Sz or syncope, blurred vision dizziness or abnormality.. BEHAVIORAL/PSYCH: Negative. ENDOCRINE: Negative. PHYSICAL EXAMINATION: General Appearance: Alert, cooperative, no distress, appears stated age. Neck HEENT: Supple, no lymphadenopathy, no thyroid enlargement, no carotid bruits. Lungs: Decreased breath sound bilaterally with fine rhonchi no crackles or wheezes. Chest Wall: Decreased expansion with deep inspiration no tenderness and no defor mity was found on exam, no costochondral pain or discomfort. Heart: Regular rate and rhythm, S1, S2 normal, no murmur, rub or gallop. Back: Symmetric, no curvature, ROM normal, no CVA tenderness. Abdomen: Soft, non-tender, bowel sounds active all four quadrants, no masses, no organomegaly. Extremities: Trace edema bilaterally positive pulses in the dorsalis pedis, she had charcoaled foot with quite high sensitivity and mildly abnormal arch in both side. Pulses: 2+ and symmetric. Skin: Skin color, texture, tugor normal, no rashes or lesions. Neurologic: Alert oriented x3 cranial nerves II through XII intact, no motor deficit, no abnormal balance or gait. ASSESSMENT AND PLAN: _Unstable angina: Will stay in the hospital till stress test and echocardiogram done and decide after the result discussion with cardiology to determine whether need to go for heart cath or not. _Multiple coronary artery disease post angioplasty and stent placement: Has been On medical management with amlodipine, metoprolol, losartan Jardiance and atorvastatin. Will continue medication and try to keep systolic blood pressure below 130 and LDL below 70. Again with all risk factor patient remains along with recurrent chest pain probably need to do invasive might be the best option. _Type 2 diabetes: Has been doing well on combination of Lantus 40 units at n ighttime NovoLog 20 units in the morning and at noon time and 25 units at dinnertime, also still on Jardiance 10 mg a day and metformin. And still on GLP-1 with Mounjaro 2.5 mg a day. With improved blood sugar so far. _Hypertension: Well-controlled on amlodipine, losartan 100 mg daily, Toprol-XL 50 mg twice a day will continue medication. _Hyperlipidemia: Continue atorvastatin 40 mg a day with target for LDL below 70. _Chronic peripheral neuropathy: Has been doing well on pregabalin 75 mg twice a day and 150 mg at bedtime. _Anasarca and edema: Has been on furosemide 20 mg a day. _Stage IIIa chronic kidney disease: Slight improvement today with gentle hydration and rest. _Recurrent history of gout: Has been on allopurinol up to 200 mg daily uric acid to be watched carefully. _Reactive airway/asthma: Aggravated by hiatal hernia has been on Ventolin inhaler on demand. _Severe GERD/hiatal hernia with GI prophylaxis: Will add pantoprazole 40 mg daily. _DVT prophylaxis: Early mobilization and knee-high ETELVINA hose. Discussion: Patient remain in the hospital today and will be seeing cardiology going for stress and echo after resolved finalize she is adrien discuss her option with cardiology whether she will go for heart cath or not. Objective - Vital Signs Vital signs: Vital Signs Temp 98.3 F 09/05/23 10:14 Pulse 65 09/06/23 03:00 Resp 16 09/06/23 03:00 BP 110/49 09/06/23 03:00 Pulse Ox 96 09/06/23 03:00 FiO2 Intake & Output 09/05/23 09/05/23 09/06/23 06:59 18:59 06:59 Weight 96.162 kg - Labs CBC & Chem 7: 09/06/23 06:38 09/06/23 06:38 Labs: Abnormal Lab Results - Last 24 Hours (Table) 09/05/23 09/05/23 09/05/23 Range/Units 11:05 11:05 12:26 D-Dimer 0.92 H (<0.60) mg/L FEU BUN 33 H (7-17) mg/dL Creatinine 1.40 H (0.52-1.04) mg/dL Glucose 73 L (74-99) mg/dL POC Glucose (mg/dL) 59 L (70-110) mg/dL 09/05/23 09/06/23 Range/Units 20:28 06:04 D-Dimer (<0.60) mg/L FEU BUN (7-17) mg/dL Creatinine (0.52-1.04) mg/dL Glucose (74-99) mg/dL POC Glucose (mg/dL) 155 H 133 H (70-110) mg/dL
[2023-09-07 06:12] LABS: Glucose,Whole Blood 164 mg/dL (70-110)
--- NOTE | 2023-09-07 07:30 | CA ---
Dobutamine Stress Echocardiogram Report Arabella Jackson Age: 77 Gender: F : 1945 Exam Date: 09/06/2023 11:53 Exam Location: [facility] [facility] Ordering Physician: Edilia Gibbons Referring Physician: Edwige RICKS Sensor Operator: victor hugo, Technologist: Ht (in): Wt (lb): Procedure CPT: Indication: Chest Pain ICD-9 Codes: Rhythm: Patient History: Chest pain, shortness of breath, hypertension and family history heart disease. Cardiac Medications: Medications in past 24 hours: Contrast: Definity Total Dose (mL): Stress Results Protocol: Dobutamine Peak Dose (???g/kg/min): 40 Duration (min:sec): Atropine:(mg) 0.5 Target HR: 123 Double Product: 99009 Resting HR: 67 Resting BP: 101 / 58 Peak HR: 154 Peak BP: 219 / 52 Max Predicted HR: 145 106 % Max Predicted HR Stress Summary: BP Response: Reason for Termination: Exceeded target heart rate (85% max predicted) Cardiac Symptoms: Chest pressure and shivers ECG Analysis Resting EKG: Stress EKG: Arrhythmia: Echo Analysis Base Echo Analysis: Low Echo Anaylsis: Peak Echo Analysis: Recovery Echo: MEASUREMENTS (Male/Female) Normal Values CONCLUSIONS Technically difficult study with suboptimal acoustic windows despite the use of Definity contrast At baseline normal EKG normal ST segments At baseline normal LV function with a very subtle inferior basal area of possible hypokinesis No ECG evidence for ischemia She complained of chest pressure throughout the test without any ECG changes Augmentation of overall LV contractility with adequate myocardial thickening and wall segments except the inferior basal segment At baseline the inferior basal segment showed mild hypokinesis. There was improvement in myocardial thickening and contractility based on the parasternal views Impression Overall no ECG evidence for ischemia Patient complained of chest pain throughout the test Possible very subtle, small area of ischemia in the inferior basal segment. Dr. Manny Hufmfan MD (Electronically Signed) Final Date: 07 September 2023 07:29
[2023-09-07 07:34] VITALS: BP 99/61; PULSE 68; RESP 18; TEMP 97.9
--- NOTE | 2023-09-08 06:22 | P.DS ---
Providers Date of admission: 09/05/23 14:05 Attending physician: Jeramy Lutz Consults: 09/05/23 14:04 Consult Physician Urgent Consulting Provider: Manny Huffman Consult Reason/Comments: cp Do you want consulting provider notified?: Yes Primary care physician: Jeramy Lutz [facility] Course: HISTORY OF PRESENT ILLNESS: 77-year-old office patient with active medical history of coronary artery disease post angioplasty and stent placement x 3 last 1 was in 2017 at [facility], type 2 diabetes, chronic kidney disease, Charcot foot, sleep apnea on CPAP, hyperlipidemia, hypertension, chronic edema, chronic anemia, and diabetic nephropathy with diabetic neuropathy who has been seen at the endocrinology clinic at [facility] for many years for diabetic management also has been seen at the cardiology clinic at [facility] for long time. She was referred last 6 months to [facility] cardiology for recurrent history of chest pain along with shortness of breath for the possible need for heart cath done because of her kidney function slightly with abnormal decision at the time not to and to continue medical management. Patient has been doing well until the last 3 to 4 days when she developed to have much worsening chest pain in the left side radiating toward the left shoulder and jaw and sometimes had an intense pain and discomfort with exertion associated with shortness of breath, mild lightheadedness and dizziness, mild palpitation nausea. Today her symptoms become a lot worse with minimal exertion ended up calling the office to see if she can stop by for an EKG and was highly advised to come to the emergency department to be evaluated. Patient ended up coming to the emergency department where was seen and evaluated her for CK with troponin Was negative, EKG did not show any major abnormality, her D-dimer was elevated and ended up going for VQ scan came back negative for PE, kidney function test close to her baseline for the last few months with creatinine at 1.4 GFR of 37. Patient was hospitalized for unstable angina and recurrent chest pain we have CK with troponin x 3, repeat EKG in the morning, s cardiology and possibly plan further intervention including not limited to heart catheter if possible. Patient risk factor including strong family history, age, previous history of coronary artery disease with multiple angioplasty and stent placement last time was in 2017, history of hypertension, hyperlipidemia, type 2 diabetes. She is not a smoker. When sharing all the risk factors and component to the patient at the time she was to some degree surprises but because of what been told at [facility] that with her kidney function it is not worth taking the risk patient will have to think about this before making decision for any invasive. 09/06/2023: Patient was kept in the hospital to see cardiology today and apparently was convinced to go for an echocardiogram and nuclear stress test. Patient medication has not been changed at this point blood sugar has been much better. Her fear still of the effect of the eye on the kidney function kidney failure is terrifying her at this point despite The improvement of kidney function from yesterday with GFR today up to 44 creatinine down to 1.22. Will continue current management continue aggressive management for diabetes awaiting for the final recommendation with cardiology because of stress test is positive on marginal patient be recommended to go for heart catheter also she is resting comfortable in bed still having slight tightness some discomfort with exertion. 09/07/2023: Patient was seen and evaluated this morning, she had good rest at night with no major complication, she is not having any chest pain without exertion or discomfort. Review her stress test with cardiology which showed no major wall motion abnormality but slight abnormality still found with the test. Again cardiology shared with patient at this point the benefit and the risk involved to do heart catheter should be discussed with her needle loom operator helper at [facility] and if feeling at that time that she should go for heart catheter patient can be well-hydrated and watch carefully and probably use a smaller amount of iodine dye for her procedure. Copy of the testing will be shared with her needle loom operator helper and she is going to make an appointment in the next week. Patient will be starting on isosorbide mononitrate to help reduce any anginal symptoms at this point. Patient will be ready to be discharged home this morning on 09/07/2023. REVIEW OF SYSTEMS: CONSTITUTIONAL: Well-developed no acute respiratory distress. EYES: No icterus sclerae, no conjunctivitis. EARS, NOSE, MOUTH, THROAT, and FACE: No sore throat, lymphadenopathy, carotid bruits or deformity. RESPIRATORY: Positive chest pain with shortness of breath no cough or wheezes. CARDIOVASCULAR: Positive chest pain with palpitation PND and orthopnea positive angina. GASTROINTESTINAL: No Abd pain, Nausea or vomiting, no Diarrhea or constipation, No GI Bleed, no distention or masses. GENITOURINARY: Negative for Hematuria or UTI, no kidney stones. INTEGUMENT/BREAST: Negative for any muscular injury with mild osteoarthritis.. HEMATOLOGIC/LYMPHATIC: Negative for bleed or purpura. MUSCULOSKELTAL: Negative for generalized myalgia and arthralgia with bilateral slight deformity of both feet worse in the left side with charcoaled foot. No ulcer or open area. NEURLOGICAL: No LOC, Sz or syncope, blurred vision dizziness or abnormality.. BEHAVIORAL/PSYCH: Negative. ENDOCRINE: Negative. PHYSICAL EXAMINATION: General Appearance: Alert, cooperative, no distress, appears stated age. Neck HEENT: Supple, no lymphadenopathy, no thyroid enlargement, no carotid bruits. Lungs: Decreased breath sound bilaterally with fine rhonchi no crackles or wheezes. Chest Wall: Decreased expansion with deep inspiration no tenderness and no deformity was found on exam, no costochondral pain or discomfort. Heart: Regular rate and rhythm, S1, S2 normal, no murmur, rub or gallop. Back: Symmetric, no curvature, ROM normal, no CVA tenderness. Abdomen: Soft, non-tender, bowel sounds active all four quadrants, no masses, no organomegaly. Extremities: Trace edema bilaterally positive pulses in the dorsalis pedis, she had charcoaled foot with quite high sensitivity and mildly abnormal arch in both side. Pulses: 2+ and symmetric. Skin: Skin color, texture, tugor normal, no rashes or lesions. Neurologic: Alert oriented x3 cranial nerves II through XII intact, no motor deficit, no abnormal balance or gait. ASSESSMENT AND PLAN: _Unstable angina: Stress test was completed was still not totally normal and with her recurrent complaint probably to talk to her needle loom operator helper at [facility] for going for heart cath when she is ready. In the meanwhile isosorbide mononitrate will be added to her medication. _Multiple coronary artery disease post angioplasty and stent placement: Has been On medical management with amlodipine, metoprolol, losartan Jardiance and atorvastatin. Will continue medication and try to keep systolic blood pressure below 130 and LDL below 70. Cardiology decided to optimize her statin management to continue atorvastatin 40 mg a day and add Zetia 10 mg a day. _Type 2 diabetes: Has been doing well on combination of Lantus 40 units at nighttime NovoLog 20 units in the morning and at noon time and 25 units at dinnertime, also still on Jardiance 10 mg a day and metformin. And still on GLP-1 with Mounjaro 2.5 mg a day. With improved blood sugar so far. _Hypertension: Well-controlled on amlodipine, losartan 100 mg daily, Toprol-XL 50 mg twice a day will continue medication. _Hyperlipidemia: Continue atorvastatin 40 mg a day with target for LDL below 70. _Chronic peripheral neuropathy: Has been doing well on pregabalin 75 mg twice a day and 150 mg at bedtime. _Anasarca and edema: Has been on furosemide 20 mg a day. _Stage IIIa chronic kidney disease: Slight improvement today with gentle hydrat ion and rest. _Recurrent history of gout: Has been on allopurinol up to 200 mg daily uric acid to be watched carefully. _Reactive airway/asthma: Aggravated by hiatal hernia has been on Ventolin inha ler on demand. _Severe GERD/hiatal hernia with GI prophylaxis: Will add pantoprazole 40 mg daily. _DVT prophylaxis: Early mobilization and knee-high ETELVINA hose. Discussion: Had full discussion with cardiology after stress test she will be going back to see her needle loom operator helper at [facility] and talk about risk and benefit of doing a heart cath and if agree going for heart cath will be the only 100 percentile confirmation whether patient has any significant blockage or not. In the meanwhile 2 medication were added new one of them Zetia the other 1 is isosorbide mononitrate patient be seen back in the office this coming week. Discharge planning: Patient was hospitalized on 09/05/2023 unstable angina and recurrent chest pain being symptomatic with exertion. Her CK and troponin were negative EKG did not show any major abnormality at the time her D-dimer was elevated and patient creatinine was 1.4 GFR 37 and up going for VQ scan which excluded possibility of pulmonary embolism. Patient had 3 angioplasty and stent placement between 2005 and 2016 and her other possibility of having another block is extremely high. Discussion was done between her and her needle loom operator helper at [facility] last 6 months for the same complaint which is recurrent chest pain anginal type and the decision at the time not to pursue doing heart cath because of kidney fu nction and the fear of having acute kidney injury or worsening kidney function. Patient has been symptomatic on and off since and continue to have symptoms with exertion at this point. 3 troponin were negative patient ended up seeing needle loom operator helper and decision was to run an echocardiogram which shows well-preserved ejection fraction with no major valvular abnormality. Nuclear stress test was done and shows slight abnormality only and discussion between her and needle loom operator helper was done and decided to go see her needle loom operator helper at [facility] and talk about the risk and benefit of doing heart cath which patient apparently going to call and make an appointment this week. Patient will start isosorbide mononitrate 30 mg a day to reduce signs and symptoms of angina and will increase her lipid management to keep her on atorvastatin 40 mg and add Zetia 10 mg daily. Patient was stable to discharge home was informed to be seen in the office this week but if she develop any further symptoms return to the emergency department. Time spent on discharging patient was over 30 minutes. Plan - Discharge Summary Discharge Rx Participant: Yes New Discharge Prescriptions: New Isosorbide Mononitrate ER [Imdur] 30 mg PO DAILY #30 tab Pantoprazole [Protonix] 40 mg PO AC-BRKFST #30 tab Ezetimibe [Zetia] 10 mg PO DAILY #30 tab Continue INSULIN LISPRO (humaLOG) [humaLOG] 20 units SQ AC-BID@0700,1200 INSULIN LISPRO (humaLOG) [humaLOG] 20 - 25 units SQ AC-SUPPER Nitroglycerin Sl Tabs [Nitrostat] 0.4 mg SUBLINGUAL Q5M PRN PRN Reason: Chest Pain Multivitamins, Thera [Multivitamin (formulary)] 1 tab PO DAILY metFORMIN HCL [Glucophage] 850 mg PO DAILY Metoprolol Succinate [Toprol XL] 50 mg PO BID Losartan Potassium 100 mg PO HS amLODIPine [Norvasc] 2.5 mg PO DAILY Insulin Glargine,Hum.rec.anlog [Lantus Solostar Pen] 40 unit SQ HS Atorvastatin [Lipitor] 40 mg PO HS Aspirin EC [Ecotrin Low Dose] 81 mg PO DAILY Furosemide [Lasix] 20 mg PO DAILY Albuterol Inhaler [Ventolin Hfa Inhaler] 2 puff INHALATION RT-Q6H PRN PRN Reason: Shortness Of Breath allopurinoL 100 mg PO DAILY Acetaminophen Tab [Tylenol] 500 mg PO Q6H PRN PRN Reason: Pain Or Fever > 100.5 Pregabalin [Lyrica] 150 mg PO HS Pregabalin [Lyrica] 75 mg PO BID-W/MEALS Ascorbic Acid [Vitamin C] 500 mg PO DAILY Empagliflozin [Jardiance] 10 mg PO DAILY Ubidecarenone [Co Q-10] 300 mg PO DAILY Cholecalciferol [Vitamin D3 (10 Mcg = 400 Iu)] 10 mcg PO DAILY Tirzepatide [Mounjaro] 2.5 mg SQ TU Discharge Medication List Aspirin EC [Ecotrin Low Dose] 81 mg PO DAILY 12/30/15 [History] Atorvastatin [Lipitor] 40 mg PO HS 12/30/15 [History] INSULIN LISPRO (humaLOG) [humaLOG] 20 - 25 units SQ AC-SUPPER 12/30/15 [History] INSULIN LISPRO (humaLOG) [humaLOG] 20 units SQ AC-BID@0700,1200 12/30/15 [History] Insulin Glargine,Hum.rec.anlog [Lantus Solostar Pen] 40 unit SQ HS 12/30/15 [History] Losartan Potassium 100 mg PO HS 12/30/15 [History] Metoprolol Succinate [Toprol XL] 50 mg PO BID 12/30/15 [History] Multivitamins, Thera [Multivitamin (formulary)] 1 tab PO DAILY 12/30/15 [History] Nitroglycerin Sl Tabs [Nitrostat] 0.4 mg SUBLINGUAL Q5M PRN 12/30/15 [History] amLODIPine [Norvasc] 2.5 mg PO DAILY 12/30/15 [History] metFORMIN HCL [Glucophage] 850 mg PO DAILY 12/30/15 [History] Albuterol Inhaler [Ventolin Hfa Inhaler] 2 puff INHALATION RT-Q6H PRN 06/05/18 [History] Furosemide [Lasix] 20 mg PO DAILY 06/05/18 [History] Acetaminophen Tab [Tylenol] 500 mg PO Q6H PRN 09/05/23 [History] Ascorbic Acid [Vitamin C] 500 mg PO DAILY 09/05/23 [History] Cholecalciferol [Vitamin D3 (10 Mcg = 400 Iu)] 10 mcg PO DAILY 09/05/23 [History] Empagliflozin [Jardiance] 10 mg PO DAILY 09/05/23 [History] Pregabalin [Lyrica] 75 mg PO BID-W/MEALS 09/05/23 [History] Pregabalin [Lyrica] 150 mg PO HS 09/05/23 [History] Tirzepatide [Mounjaro] 2.5 mg SQ TU 09/05/23 [History] Ubidecarenone [Co Q-10] 300 mg PO DAILY 09/05/23 [History] allopurinoL 100 mg PO DAILY 09/05/23 [History] Ezetimibe [Zetia] 10 mg PO DAILY #30 tab 09/07/23 [Rx] Isosorbide Mononitrate ER [Imdur] 30 mg PO DAILY #30 tab 09/07/23 [Rx] Pantoprazole [Protonix] 40 mg PO AC-BRKFST #30 tab 09/07/23 [Rx] Follow up Appointment(s)/Referral(s): Savannah Christina MD [REFERRING] - 1 Week Jeramy Lutz MD [Primary Care Provider] - 09/14/23 3:15 pm Discharge Disposition: HOME SELF-CARE
--- NOTE | 2023-09-08 10:56 | P.PN ---
Subjective Patient is doing well. No chest discomfort dizziness or lightheadedness Yesterday she underwent a dobutamine stress echo which did not show any clear- cut evidence for ischemia Her EKG was completely normal even though she was experiencing chest discomfort during dobutamine infusion with atropine On examination heart sounds are normal Impression past history of CAD and stenting Discussed with patient Discussed with her primary care physician I would recommend following up with her physician jayme Luna for further evaluation Continue maximally tolerated antiatherosclerotic treatment for CAD Objective - Vital Signs Vital signs: Vital Signs Temp 97.9 F 09/07/23 07:00 Pulse 68 09/07/23 07:00 Resp 18 09/07/23 07:00 BP 99/61 09/07/23 07:00 Pulse Ox 96 09/07/23 07:00 FiO2 Intake & Output 09/07/23 09/08/23 09/08/23 18:59 06:59 18:59 Intake Total 118 Balance 118 Intake: Oral 118 - Labs CBC & Chem 7: 09/06/23 06:38 09/06/23 06:38
== END 2023-09-07 10:30 | disposition home or self-care (01) ==
LOC: EC 10:13 → 6NMEDSUR 14:05
PROVIDERS: ADMIT Internal Medicine Geriatric Medicine; ATTEND Internal Medicine Geriatric Medicine
DX: I25.110 Atherosclerotic heart disease of native coronary artery with unstable angina pectoris (principal); I12.9 Hypertensive chronic kidney disease with stage 1 through stage 4 chronic kidney disease, or unspecified chronic kidney disease; N18.31 Chronic kidney disease, stage 3a; E11.22 Type 2 diabetes mellitus with diabetic chronic kidney disease; R60.1 Generalized edema; E78.5 Hyperlipidemia, unspecified; G47.30 Sleep apnea, unspecified; E11.610 Type 2 diabetes mellitus with diabetic neuropathic arthropathy; E11.42 Type 2 diabetes mellitus with diabetic polyneuropathy; M10.9 Gout, unspecified; K21.9 Gastro-esophageal reflux disease without esophagitis; K44.9 Diaphragmatic hernia without obstruction or gangrene; J45.909 Unspecified asthma, uncomplicated; E66.9 Obesity, unspecified; Z68.32 Body mass index [BMI] 32.0-32.9, adult; Z95.5 Presence of coronary angioplasty implant and graft; Z79.82 Long term (current) use of aspirin; Z79.899 Other long term (current) drug therapy; Z79.4 Long term (current) use of insulin; Z79.84 Long term (current) use of oral hypoglycemic drugs; Z88.0 Allergy status to penicillin; Z82.49 Family history of ischemic heart disease and other diseases of the circulatory system
CPT/HCPCS: 99285; 36415; 93005; 93306; 85379; 83880; 80061; 80053 ×2; 83735; 84484; 85025 ×2; 85610; 85730; 83721; 71046; 78582; G0378 ×3; C8930; A9540; A9567; J1250; J0461; Q9957; 93351

== ENCOUNTER 2024-03-02 18:30 | Emergency (ER) | payer MEDICARE ==
[2024-03-02 18:45] VITALS: RESP 18
--- NOTE | 2024-03-02 18:52 | ED ---
GI Bleed HPI - General Chief complaint: GI Bleed Stated complaint: Impacted bowels, hemorrhoids, weakness Time Seen by Provider: 03/02/24 18:46 Source: patient, RN notes reviewed, old records reviewed Mode of arrival: wheelchair Limitations: no limitations - History of Present Illness Initial comments: This is a 78-year-old female to the ER for evaluation today. Patient presents today for evaluation regards to abdominal pain cramping diminished bowel movements and blood in the stool. Patient has had symptoms episodically for about 2 weeks now starting prior to [facility]. Patient does admit to increased stress in her life and does have blood in the stool MD complaint: blood on toilet paper, blood streaked stool -: days(s) Severity scale (1-10): 0 Quality: painless Consistency: intermittent Improves with: none Worsens with: none Context: history of GI bleed, hemorrhoids Associated Symptoms: nausea Treatments Prior to Arrival: none - Related Data Home Medications Medication Instructions Recorded Confirmed Aspirin EC [Ecotrin Low Dose] 81 mg PO DAILY 12/30/15 09/05/23 Atorvastatin [Lipitor] 40 mg PO HS 12/30/15 09/05/23 INSULIN LISPRO (humaLOG) [humaLOG] 20 - 25 units SQ AC-SUPPER 12/30/15 09/05/23 INSULIN LISPRO (humaLOG) [humaLOG] 20 units SQ AC-BID@0700,1200 12/30/15 09/05/23 Insulin Glargine,Hum.rec.anlog 40 unit SQ HS 12/30/15 09/05/23 [Lantus Solostar Pen] Losartan Potassium 100 mg PO HS 12/30/15 09/05/23 Metoprolol Succinate [Toprol XL] 50 mg PO BID 12/30/15 09/05/23 Multivitamins, Thera [Multivitamin 1 tab PO DAILY 12/30/15 09/05/23 (formulary)] Nitroglycerin Sl Tabs [Nitrostat] 0.4 mg SUBLINGUAL Q5M PRN 12/30/15 09/05/23 amLODIPine [Norvasc] 2.5 mg PO DAILY 12/30/15 09/05/23 metFORMIN HCL [Glucophage] 850 mg PO DAILY 12/30/15 09/05/23 Albuterol Inhaler [Ventolin Hfa 2 puff INHALATION RT-Q6H PRN 06/05/18 09/05/23 Inhaler] Furosemide [Lasix] 20 mg PO DAILY 06/05/18 09/05/23 Acetaminophen Tab [Tylenol] 500 mg PO Q6H PRN 09/05/23 09/05/23 Ascorbic Acid [Vitamin C] 500 mg PO DAILY 09/05/23 09/05/23 Cholecalciferol [Vitamin D3 (10 10 mcg PO DAILY 09/05/23 09/05/23 Mcg = 400 Iu)] Empagliflozin [Jardiance] 10 mg PO DAILY 09/05/23 09/05/23 Pregabalin [Lyrica] 75 mg PO BID-W/MEALS 09/05/23 09/05/23 Pregabalin [Lyrica] 150 mg PO HS 09/05/23 09/05/23 Tirzepatide [Mounjaro] 2.5 mg SQ TU 09/05/23 09/05/23 Ubidecarenone [Co Q-10] 300 mg PO DAILY 09/05/23 09/05/23 allopurinoL 100 mg PO DAILY 09/05/23 09/05/23 Previous Rx's Medication Instructions Recorded Ezetimibe [Zetia] 10 mg PO DAILY #30 tab 09/07/23 Isosorbide Mononitrate ER [Imdur] 30 mg PO DAILY #30 tab 09/07/23 Pantoprazole [Protonix] 40 mg PO AC-BRKFST #30 tab 09/07/23 Allergies Allergy/AdvReac Type Severity Reaction Status Date / Time Penicillins Allergy Rash/Hives Verified 03/02/24 18:37 ragweed pollen Allergy Rash/Hives Verified 03/02/24 18:37 Review of Systems ROS Statement: Those systems with pertinent positive or pertinent negative responses have been documented in the HPI. ROS Other: All systems not noted in ROS Statement are negative. Past Medical History Past Medical History: Coronary Artery Disease (CAD), Diabetes Mellitus, Hyperlipidemia, Hypertension, Sleep Apnea/CPAP/BIPAP Additional Past Medical History / Comment(s): arthritis, neuropathy, kidney stones, unstable angina,uses cpap History of Any Multi-Drug Resistant Organisms: None Reported Past Surgical History: Heart Catheterization With Stent, Hysterectomy Additional Past Surgical History / Comment(s): D and C X2, Cataract bilateral X2 Past Anesthesia/Blood Transfusion Reactions: Postoperative Nausea & Vomiting ( PONV) Date of Last Stent Placement:: Past Psychological History: No Psychological Hx Reported Smoking Status: Never smoker Past Alcohol Use History: Occasional Past Drug Use History: None Reported - Past Family History Mother Family Medical History: Coronary Artery Disease (CAD), Diabetes Mellitus Father Additional Family Medical History / Comment(s): emphysema,heart problems Sister(s) Family Medical History: Cancer, Diabetes Mellitus Additional Family Medical History / Comment(s): breast Brother(s) Family Medical History: Diabetes Mellitus, Myocardial Infarction ([place]) General Exam Limitations: no limitations General appearance: alert, in no apparent distress Head exam: Present: atraumatic, normocephalic, normal inspection Eye exam: Present: normal appearance, PERRL, EOMI. Absent: scleral icterus, conjunctival injection, periorbital swelling ENT exam: Present: normal exam, mucous membranes moist Neck exam: Present: normal inspection. Absent: tenderness, meningismus, lymphadenopathy Respiratory exam: Present: normal lung sounds bilaterally. Absent: respiratory distress, wheezes, rales, rhonchi, stridor Cardiovascular Exam: Present: regular rate, normal rhythm, normal heart sounds. Absent: systolic murmur, diastolic murmur, rubs, gallop, clicks GI/Abdominal exam: Present: soft, normal bowel sounds. Absent: distended, tenderness, guarding, rebound, rigid Extremities exam: Present: normal inspection, full ROM, normal capillary refill. Absent: tenderness, pedal edema, joint swelling, calf tenderness Back exam: Present: normal inspection Neurological exam: Present: alert, oriented X3, CN II-XII intact Psychiatric exam: Present: normal affect, normal mood Skin exam: Present: warm, dry, intact, normal color. Absent: rash Course Vital Signs 03/02/24 03/02/24 18:37 19:44 Temperature 98.4 F Pulse Rate 98 91 Respiratory 18 18 Rate Blood Pressure 106/62 106/59 O2 Sat by Pulse 97 97 Oximetry - Reevaluation(s) Reevaluation #1: 03/02/24 18:52 Medical records reviewed Reevaluation #2: 03/02/24 20:52 Patient has no active bleeding here in the ER no bleeding in the brief Reevaluation #3: 03/02/24 20:52 Patient informed of results and questions answered Reevaluation #4: Was pt. sent in by a medical professional or institution (, SIMIN, SENIOR PROCUREMENT SPECIALIST, urgent care, hospital, or detention...) When possible be specific @ -no Did you speak to anyone other than the patient for history (EMS, parent, family, police, friend...)? What history was obtained from this source @ -no Did you review nursing and triage notes (agree or disagree)? Why? @ -agree Are old charts reviewed (outside hosp., previous admission, EMS record, old EKG, old radiological studies, urgent care reports/EKG's, detention records)? Report findings @ -yes Differential Diagnosis (chest pain, altered mental status, abdominal pain women, abdominal pain men, vaginal bleeding, weakness, fever, dyspnea, syncope, headache, dizziness, GI bleed, back pain, seizure, CVA, palpatations, mental health, musculoskeletal)? @ -prior EKG interpreted by me (3pts min.). @ -yes X-rays interpreted by me (1pt min.). @ -yes negative for acute disease CT interpreted by me (1pt min.). @ -no U/S interpreted by me (1pt. min.). @ -no What testing was considered but not performed or refused? (CT, X-rays, U/S, labs)? Why? @ -none What meds were considered but not given or refused? Why? @ -none Did you discuss the management of the patient with other professionals (professionals i.e. , SIMIN, SENIOR PROCUREMENT SPECIALIST, lab, RT, psych nurse, social media strategist, percussion tuner, teacher, desk officer, piano case maker)? Give summary @ -no Was smoking cessation discussed for >3mins.? @ -no Was critical care preformed (if so, how long)? @ -no Were there social determinants of health that impacted care today? How? (Homelessness, low income, unemployed, alcoholism, drug addiction, t ransportation, low edu. Level, literacy, decrease access to med. care, nursing home, rehab)? @ -none Was there de-escalation of care discussed even if they declined (Discuss DNR or withdrawal of care, Hospice)? DNR status @ -no What co-morbidities impacted this encounter? (DM, HTN, Smoking, COPD, CAD, Can cer, CVA, ARF, Chemo, Hep., AIDS, mental health diagnosis, sleep apnea, morbid obesity)? @ -none Was patient admitted / discharged? Hospital course, mention meds given and route, prescriptions, significant lab abnormalities, going to OR and other pertinent info. @ - Undiagnosed new problem with uncertain prognosis? @ -no Drug Therapy requiring intensive monitoring for toxicity (Heparin, Nitro, Insulin, Cardizem)? @ -no Were any procedures done? @ -no Diagnosis/symptom? @ - Acute, or Chronic, or Acute on Chronic? @ -Acute Uncomplicated (without systemic symptoms) or Complicated (systemic symptoms)? @ -Complicated Side effects of treatment? @ -no Exacerbation, Progression, or Severe Exacerbation? @ -exacerbation Poses a threat to life or bodily function? How? (Chest pain, [place], [place], pneumonia, PE, COPD, DKA, ARF, appy, cholecystitis, CVA, Diverticulitis, Homicidal, Suicidal, threat to staff... and all critical care pts) @ -yes Reevaluation #5: Differential GI Bleed: Esophageal varices, aortoenteric fistula, Abimbola-Green, gastritis, peptic ulcer disease, diverticulosis, inflammatory bowel disease, hemorrhoids, fissure, colitis, malignancy, Meckel's diverticulum, this is not meant to be an all- inclusive list. Differential Abdominal Pain Women: Appendicitis, Cholecystitis, diverticulosis, ischemic bowel, pancreatitis, hepatitis, UTI, gastroenteritis, AAA, incarcerated hernia, bowel obstruction, constipation, inflammatory bowel, hepatitis, peptic ulcer disease, splenic infarction, perforated viscus, vulvitis, ovarian torsion, PID, kidney stone, placenta abruption, this is not meant to be an all-inclusive list Medical Decision Making - Medical Decision Making 78 female to ER for evaluation of what she suspects is hemorrhoid bleeding. Patient does appear to have hemorrhoid on exam negative CT scan normal hemoglobin normal vital signs patient can be discharged home - Lab Data Result diagrams: 03/02/24 19:03/02/24 19: Lab Results 03/02/24 03/02/24 03/02/24 Range/Units 19: 19: 19:07 WBC 8.0 (3.8-10.6) k/uL RBC 3.05 L (3.80-5.40) m/uL Hgb 9.5 L (11.4-16.0) gm/dL Hct 28.6 L (34.0-46.0) % MCV 93.8 (80.0-100.0) fL MCH 31.1 (25.0-35.0) pg MCHC 33.2 (31.0-37.0) g/dL RDW 16.1 H (11.5-15.5) % Plt Count 200 (150-450) k/uL MPV 8.3 Neutrophils % 73 % Lymphocytes % 17 % Monocytes % 7 % Eosinophils % 1 % Basophils % 1 % Neutrophils # 5.8 (1.3-7.7) k/uL Lymphocytes # 1.4 (1.0-4.8) k/uL Monocytes # 0.5 (0-1.0) k/uL Eosinophils # 0.1 (0-0.7) k/uL Basophils # 0.1 (0-0.2) k/uL Anisocytosis Slight PT 10.1 (10.0-12.5) sec INR 0.9 (<1.2) APTT 19.0 L (22.0-30.0) sec Sodium 137 (137-145) mmol/L Potassium 4.0 (3.5-5.1) mmol/L Chloride 107 (98-107) mmol/L Carbon Dioxide 19 L (22-30) mmol/L Anion Gap 11 mmol/L BUN 46 H (7-17) mg/dL Creatinine 1.88 H (0.52-1.04) mg/dL Est GFR (CKD-EPI)AfAm 30 (>60 ml/min/1.73 sqM) Est GFR (CKD-EPI)NonAf 26 (>60 ml/min/1.73 sqM) Glucose 147 H (74-99) mg/dL Calcium 9.0 (8.4-10.2) mg/dL Magnesium 2.0 (1.6-2.3) mg/dL Total Bilirubin 0.3 (0.2-1.3) mg/dL AST 21 (14-36) U/L ALT 19 (4-34) U/L Alkaline Phosphatase 69 (38-126) U/L Troponin I (0.000-0.034) ng/mL Total Protein 6.7 (6.3-8.2) g/dL Albumin 3.9 (3.5-5.0) g/dL Blood Type Blood Type Confirm Blood Type Recheck Bld Type Recheck Status Antibody Screen Spec Expiration Date 03/02/24 03/02/24 03/02/24 Range/Units 19:07 19:20 19:25 WBC (3.8-10.6) k/uL RBC (3.80-5.40) m/uL Hgb (11.4-16.0) gm/dL Hct (34.0-46.0) % MCV (80.0-100.0) fL MCH (25.0-35.0) pg MCHC (31.0-37.0) g/dL RDW (11.5-15.5) % Plt Count (150-450) k/uL MPV Neutrophils % % Lymphocytes % % Monocytes % % Eosinophils % % Basophils % % Neutrophils # (1.3-7.7) k/uL Lymphocytes # (1.0-4.8) k/uL Monocytes # (0-1.0) k/uL Eosinophils # (0-0.7) k/uL Basophils # (0-0.2) k/uL Anisocytosis PT (10.0-12.5) sec INR (<1.2) APTT (22.0-30.0) sec Sodium (137-145) mmol/L Potassium (3.5-5.1) mmol/L Chloride (98-107) mmol/L Carbon Dioxide (22-30) mmol/L Anion Gap mmol/L BUN (7-17) mg/dL Creatinine (0.52-1.04) mg/dL Est GFR (CKD-EPI)AfAm (>60 ml/min/1.73 sqM) Est GFR (CKD-EPI)NonAf (>60 ml/min/1.73 sqM) Glucose (74-99) mg/dL Calcium (8.4-10.2) mg/dL Magnesium (1.6-2.3) mg/dL Total Bilirubin (0.2-1.3) mg/dL AST (14-36) U/L ALT (4-34) U/L Alkaline Phosphatase (38-126) U/L Troponin I 0.024 (0.000-0.034) ng/mL Total Protein (6.3-8.2) g/dL Albumin (3.5-5.0) g/dL Blood Type A Positive Blood Type Confirm A Positive Blood Type Recheck No Previous Record Bld Type Recheck Status CABO Indicated Antibody Screen NEGATIVE Spec Expiration Date 03/05/20242319 - Radiology Data Radiology results: report reviewed (CT abdomen pelvis negative for acute disease), image reviewed Disposition Clinical Impression: Hemorrhoids, Lower gastrointestinal hemorrhage Disposition: HOME SELF-CARE Condition: Good Instructions (If sedation given, give patient instructions): Hemorrhoids (ED), Rectal Bleeding (ED) Is patient prescribed a controlled substance at d/c from ED?: No Referrals: Jeramy Lutz MD [Primary Care Provider] - 1-2 days Time of Disposition: 21:00
[2024-03-02 19:35] LABS: Anisocytosis Slight; Basophils # (A) 0.1 k/uL (0-0.2); Basophils % (A) 1 %; Eosinophils # (A) 0.1 k/uL (0-0.7); Eosinophils % (A) 1 %; HCT 28.6 % (34.0-46.0); HGB 9.5 gm/dL (11.4-16.0); Lymphocytes # (A) 1.4 k/uL (1.0-4.8); Lymphocytes % (A) 17 %; MCH 31.1 pg (25.0-35.0); MCHC 33.2 g/dL (31.0-37.0); MCV 93.8 fL (80.0-100.0); Mean Platelet Volume 8.3; Monocytes # (A) 0.5 k/uL (0-1.0); Monocytes % (A) 7 %; Neutrophils # (A) 5.8 k/uL (1.3-7.7); Neutrophils % (A) 73 %; Platelet Count 200 k/uL (150-450); RBC 3.05 m/uL (3.80-5.40); RDW 16.1 % (11.5-15.5)
[2024-03-02] MEDS: SODIUM CHLORIDE 0.9% 1,000 ML IV STA (19:38)
[2024-03-02] MEDS: PANTOPRAZOLE 40 MG/10 ML VIAL IVP STA (19:41)
[2024-03-02] MEDS: ONDANSETRON 4 MG/2 ML VIAL IVP STA (19:41)
[2024-03-02] MEDS: HYDROmorphone 0.5 MG/0.5 ML SYRINGE IVP STA (19:43)
[2024-03-02 19:50] LABS: ALT 19 U/L (4-34); AST 21 U/L (14-36); African American GFR (CKD) 30 (>60 ml/min/1.73 sqM); Albumin 3.9 g/dL (3.5-5.0); Alkaline Phosphatase 69 U/L (38-126); Anion Gap 11 mmol/L; Blood Urea Nitrogen 46 mg/dL (7-17); Carbon Dioxide 19 mmol/L (22-30); Chloride 107 mmol/L (98-107); Glucose 147 mg/dL (74-99); Non-African American GFR(CKD) 26 (>60 ml/min/1.73 sqM); Sodium 137 mmol/L (137-145); Total Bilirubin 0.3 mg/dL (0.2-1.3); Total Protein 6.7 g/dL (6.3-8.2)
[2024-03-02 20:15] LABS: INR 0.9 (<1.2); Prothrombin Time 10.1 sec (10.0-12.5)
--- NOTE | 2024-03-02 20:44 | CT ---
EXAMINATION TYPE: CT abdomen pelvis wo con DATE OF EXAM: 03/02/2024 8:31 PM COMPARISON: CT abdomen/pelvis 09/14/2019. CLINICAL INDICATION: Female, 78 years old with history of pain,GIB; Rectal bleeding x2days. C/O "impa ction", began passing large amounts of tissue and blood clots. Tired, weak, and dizzy. TECHNIQUE: Axial CT abdomen pelvis wo con;Sagittal and coronal reformats were created on a separate workstation. Oral contrast used: without Oral Contrast (none if empty) CT DLP: 1184.5 mGycm, Automated exposure control for dose reduction was used. FINDINGS: LOWER CHEST: Partially visualized bilateral breast implants. Lungs without acute pathology. Coronary artery calcifications. Partially visualized median sternotomy wires. ABDOMEN LIVER: Unremarkable GALLBLADDER AND BILE DUCTS: Layering increased densities within the lumen consistent with gallstones are present. PANCREAS: Unremarkable. SPLEEN: Unremarkable. ADRENAL GLANDS: Unremarkable. KIDNEYS AND URETERS: Multiple hyperdense lesions in the bilateral kidneys likely reflecting hemorrhag ic proteinaceous cyst. No hydronephrosis. Small bilateral nonobstructing renal calculi versus vascula r calcifications. PELVIS BLADDER: No evidence for wall thickening or mass given limitations of exam. REPRODUCTIVE: Uterus surgically absent. ABDOMEN & PELVIS STOMACH AND BOWEL: Stomach and duodenum are unremarkableLimited evaluation for gastric intestinal ble eding given lack of IV contrast. No acute large or bowel wall thickening or associated mesenteric inf lammation. No evidence of bowel obstruction. PERITONEUM/RETROPERITONEUM: No evidence of pneumoperitoneum or free fluid. VASCULATURE: No evidence of aortic aneurysm. MUSCULOSKELETAL: No acute osseous abnormalities LYMPH NODES: No gross evidence for lymphadenopathy. SOFT TISSUE/ABDOMINAL WALL: Unremarkable IMPRESSION: No acute abnormality abdomen/pelvis within the limitations of noncontrast study. [facility], , 03/02/2024 8:41 PM
[2024-03-02] MEDS: HYDROCORTISONE SUPPOSITORY 25 MG SUPP RECTAL STA (21:11)
[2024-03-02 21:27] VITALS: BP 133/64; PULSE 86; TEMP 98.2
== END 2024-03-02 21:26 | disposition home or self-care (01) ==
LOC: EC 18:30
DX: K64.9 Unspecified hemorrhoids (principal); K92.2 Gastrointestinal hemorrhage, unspecified; Z88.0 Allergy status to penicillin; Z88.8 Allergy status to other drugs, medicaments and biological substances
CPT/HCPCS: 36415; 86900; 86901; 80053; 83735; 84484; 85025; 85610; 85730; 86850; 74176; 99285; 96374; 96375; 96361; J2405; J2470

== ENCOUNTER 2024-03-04 20:13 | Inpatient (IN) | payer MEDICARE ==
[2024-03-04 21:06] LABS: Anisocytosis Slight; Basophils % (A) 0 %; Eosinophils # (A) 0.2 k/uL (0-0.7); Eosinophils % (A) 2 %; Lymphocytes % (A) 25 %; MCH 33.2 pg (25.0-35.0); Mean Platelet Volume 8.1; Monocytes # (A) 0.5 k/uL (0-1.0); Monocytes % (A) 6 %; Neutrophils # (A) 5.3 k/uL (1.3-7.7); Neutrophils % (A) 65 %; Platelet Count 201 k/uL (150-450); RBC 1.99 m/uL (3.80-5.40); RDW 17.2 % (11.5-15.5); WBC 8.2 k/uL (3.8-10.6)
--- NOTE | 2024-03-04 21:07 | ED ---
General Adult HPI - General Chief complaint: GI Bleed Stated complaint: Fall chest palpitation weakness Time Seen by Provider: 03/04/24 20:21 Source: patient Mode of arrival: ambulatory Limitations: no limitations - History of Present Illness Initial comments: Patient is a pleasant 78-year-old female with a past medical history of CAD on Plavix presenting today for rectal bleeding. Patient states this has been ongoing off and on since . Seem to worsen this last Monday and states that since then she has had about 3 episodes of large-volume dark red blood clots per rectum. She said she in addition as she has had some smaller episodes as well. Was seen here in the emergency department on Monday and ultimately discharged home. Patient states since then she has had worsening weakness, dizziness with exertion, chest pressure and shortness of breath with exertion. She saw her primary care provider, Dr. Bernstein today who sent her to the emergency department for further evaluation. Prior abdominal surgery history of a prior hysterectomy, aside from that no other abdominal surgeries. She denies any history of easy bleeding or bruising prior to being on Plavix. She denies any episode of syncope. Currently denies chest pain stating goes away with rest. Denies any abdominal pain or fevers. Denies hematuria or vaginal bleeding. - Related Data Home Medications Medication Instructions Recorded Confirmed Aspirin EC [Ecotrin Low Dose] 81 mg PO DAILY 12/30/15 09/05/23 Atorvastatin [Lipitor] 40 mg PO HS 12/30/15 09/05/23 INSULIN LISPRO (humaLOG) [humaLOG] 20 - 25 units SQ AC-SUPPER 12/30/15 09/05/23 INSULIN LISPRO (humaLOG) [humaLOG] 20 units SQ AC-BID@0700,1200 12/30/15 Insulin Glargine,Hum.rec.anlog 40 unit SQ HS 12/30/15 09/05/23 [Lantus Solostar Pen] Losartan Potassium 100 mg PO HS 12/30/15 09/05/23 Metoprolol Succinate [Toprol XL] 50 mg PO BID 12/30/15 09/05/23 Multivitamins, Thera [Multivitamin 1 tab PO DAILY 12/30/15 09/05/23 (formulary)] Nitroglycerin Sl Tabs [Nitrostat] 0.4 mg SUBLINGUAL Q5M PRN 12/30/15 09/05/23 amLODIPine [Norvasc] 2.5 mg PO DAILY 12/30/15 09/05/23 metFORMIN HCL [Glucophage] 850 mg PO DAILY 12/30/15 09/05/23 Albuterol Inhaler [Ventolin Hfa 2 puff INHALATION RT-Q6H PRN 06/05/18 09/05/23 Inhaler] Furosemide [Lasix] 20 mg PO DAILY 06/05/18 09/05/23 Acetaminophen Tab [Tylenol] 500 mg PO Q6H PRN 09/05/23 09/05/23 Ascorbic Acid [Vitamin C] 500 mg PO DAILY 09/05/23 09/05/23 Cholecalciferol [Vitamin D3 (10 10 mcg PO DAILY 09/05/23 09/05/23 Mcg = 400 Iu)] Empagliflozin [Jardiance] 10 mg PO DAILY 09/05/23 09/05/23 Pregabalin [Lyrica] 75 mg PO BID-W/MEALS 09/05/23 09/05/23 Pregabalin [Lyrica] 150 mg PO HS 09/05/23 09/05/23 Tirzepatide [Mounjaro] 2.5 mg SQ TU 09/05/23 09/05/23 Ubidecarenone [Co Q-10] 300 mg PO DAILY 09/05/23 09/05/23 allopurinoL 100 mg PO DAILY 09/05/23 09/05/23 Previous Rx's Medication Instructions Recorded Ezetimibe [Zetia] 10 mg PO DAILY #30 tab 09/07/23 Isosorbide Mononitrate ER [Imdur] 30 mg PO DAILY #30 tab 09/07/23 Pantoprazole [Protonix] 40 mg PO AC-BRKFST #30 tab 09/07/23 Allergies Allergy/AdvReac Type Severity Reaction Status Date / Time Penicillins Allergy Rash/Hives Verified 03/04/24 20:19 ragweed pollen Allergy Rash/Hives Verified 03/04/24 20:19 Review of Systems ROS Statement: Those systems with pertinent positive or pertinent negative responses have been documented in the HPI. ROS Other: All systems not noted in ROS Statement are negative. Past Medical History Past Medical History: Coronary Artery Disease (CAD), Diabetes Mellitus, Hyperlipidemia, Hypertension, Sleep Apnea/CPAP/BIPAP Additional Past Medical History / Comment(s): arthritis, neuropathy, kidney stones, unstable angina,uses cpap History of Any Multi-Drug Resistant Organisms: None Reported Past Surgical History: Heart Catheterization With Stent, Hysterectomy Additional Past Surgical History / Comment(s): D and C X2, Cataract bilateral X2 Past Anesthesia/Blood Transfusion Reactions: Postoperative Nausea & Vomiting (PONV) Date of Last Stent Placement:: Past Psychological History: No Psychological Hx Reported Smoking Status: Never smoker Past Alcohol Use History: Occasional Past Drug Use History: None Reported - Past Family History Mother Family Medical History: Coronary Artery Disease (CAD), Diabetes Mellitus Father Additional Family Medical History / Comment(s): emphysema,heart problems Sister(s) Family Medical History: Cancer, Diabetes Mellitus Additional Family Medical History / Comment(s): breast Brother(s) Family Medical History: Diabetes Mellitus, Myocardial Infarction (DC) General Exam - General Exam Comments Initial Comments: PE: CONSTITUTIONAL: No apparent distress, ill-appearing, nontoxic, generalized pallor SKIN: Warm, dry, no jaundice, hives or petechiae. Conjunctival pallor noted EYES: Pupils are equally round, extraocular movements intact without nystagmus, pale conjunctiva, non-icteric sclera HENT: Normocephalic, atraumatic, slightly dry mucus membranes, oropharynx clear without exudates NECK: , Full range of motion, normal appearance PULMONARY: Clear to auscultation without wheezes, rhonchi, or rales, normal excursion, no accessory muscle use and no stridor CARDIOVASCULAR: Regular rate, rhythm, normal S1 and S2. No appreciated murmurs, rubs or gallops. Strong radial pulses with intact distal perfusion. No lower extremity edema GASTROINTESTINAL: Soft, active bowel sounds throughout, non-tender, non- distended, no palpable masses, no rebound or guarding. No hepatosplenomegaly. Rectal exam performed with EDY Saba at bedside, showed 1 external hemorrhoid, nonbleeding, no palpable masses or fluctuance on digital rectal exam, scant a mount of dark brown stool, no active bleeding GENITOURINARY: MUSCULOSKELETAL: Extremities have no gross deformity, no edema, redness, or swelling. No calf swelling NEUROLOGIC:_a/o x 3, GCS 15, normal mentation and speech. Moves all extremities x 4 without motor or sensory deficit PSYCHIATRIC:_normal mood and affect, thought process is clear and linear Limitations: no limitations Course Vital Signs 03/04/24 03/04/24 03/05/24 20:16 23:31 00:00 Temperature 99.2 F 97.6 F 98.0 F Pulse Rate 81 77 71 Respiratory 18 18 16 Rate Blood Pressure 115/68 119/55 127/54 O2 Sat by Pulse 98 98 98 Oximetry EKG Findings - EKG Comments: EKG Findings:: Sinus rhythm, rate 70 bpm, NC interval 173 ms, QRS duration 170 ms, QT/QTc 403/437 ms, normal axis, no ST elevations or depressions, some artifact is present, no arrhythmia. Compared to EKG performed on 09/05/2023, does appear to be some new T wave flattening in leads V2 and V3 as well as T wave inversion in V5 new from prior T wave flattening in aVR as well as well as new T wave inversion in aVL when compared to prior EKG Medical Decision Making - Medical Decision Making Was pt. sent in by a medical professional or institution (, PA, [employer], urgent care, hospital, or [facility]...) When possible be specific @ -No Did you speak to anyone other than the patient for history (EMS, parent, family, police, friend...)? What history was obtained from this source @Patient's friend at bedside assisted in providing history Did you review nursing and triage notes (agree or disagree)? Why? @ -I reviewed and agree with nursing and triage notes Were old charts reviewed (outside hosp., previous admission, EMS record, old EKG, old radiological studies, urgent care reports/EKG's, [facility] records)? Report findings @ -Records reviewed, patient here on 03/02/2024 for bleeding hemorrhoids, hemoglobin was 9.5 at that time as well as CT abdomen pelvis noncon negative for acute process Differential Diagnosis (chest pain, altered mental status, abdominal pain women, abdominal pain men, vaginal bleeding, weakness, fever, dyspnea, syncope, headache, dizziness, GI bleed, back pain, seizure, CVA, palpatations, mental health, musculoskeletal)? @ -Differential GI Bleed: Esophageal varices, aortoenteric fistula, Abimbola-Green, gastritis, peptic ulcer disease, diverticulosis, inflammatory bowel disease, hemorrhoids, fissure, colitis, malignancy, Meckel's diverticulum, this is not meant to be an all- inclusive list. EKG interpreted by me (3pts min.). @ -As above X-rays interpreted by me (1pt min.). Mild cardiomegaly, no consolidations or pleural effusions CT interpreted by me (1pt min.). @ -None done U/S interpreted by me (1pt. min.). @ -None done What testing was considered but not performed or refused? (CT, X-rays, U/S, labs)? Why? Considered CT GI Bleed study however patient w/ no active bloody stools here, no abdominal pain, CKD, at this point risk of contrast admin outweighs benefit What meds were considered but not given or refused? Why? @ -None Did you discuss the management of the patient with other professionals (sammie arevalo i.e. , PA, [employer], lab, RT, psych nurse, social work lecturer, grinder operator external tool, teacher, philanthropy officer, case picker)? Give summary @ -No Was smoking cessation discussed for >3mins.? @ -No Was critical care preformed (if so, how long)? Yes 35 minutes Were there social determinants of health that impacted care today? How? (Homelessness, low income, unemployed, alcoholism, drug addiction, transportati on, low edu. Level, literacy, decrease access to med. care, skilled nursing, rehab)? @ -No Was there de-escalation of care discussed even if they declined (Discuss DNR or withdrawal of care, Hospice)? @ -No What co-morbidities impacted this encounter? (DM, HTN, Smoking, COPD, CAD, Cancer, CVA, ARF, Chemo, Hep., AIDS, mental health diagnosis, sleep apnea, morbid obesity)? @ -CAD on plavix Was patient admitted / discharged? Hospital course, mention meds given and route, prescriptions, significant lab abnormalities, going to OR and other pertinent info. @Admission- Patient is a pleasant 78 y/o female presenting today for blood stools x3 days, e exertional dyspnea and chest pain and associated weakness. My assessment patient is somewhat ill-appearing though nontoxic in no acute distress. She is pale with conjunctival pallor, no lower extremity edema, lungs are clear to auscultation, normal S1-S2 on cardiac exam abdomen is soft and nontender. Rectal exam performed with EDY Saba at bedside showed no active bleeding, scant amount of stool was able to be collected for hemoccult testing but this may limit the accuracy of testing. Was dark brown on my assessment. Discussed with patient plan for IV fluids, type and cross, comprehensive labs chest x-ray, at this time patient states that she does have a history of stage II-III kidney disease marginal signs of active bleeding bleeding or an acute abdomen so we will withhold further imaging of the abdomen Reviewed patient's labs, significant for hemoglobin of 6.6, previously 9.5 on 03/02/2024 this is almost 3 point drop in the last 2 days kidney function appears stable, troponin is elevated at 0.121 I suspect this is due to type II ischemia given patient's history of CAD and anemia. She is not currently being chest pain and with hemoglobin drop 3 points I do not think this patient needs to be started on heparin at this point. Will continue to monitor. Stool occult blood positive. Will admit for suspected lower GI bleed. Updated patient to findings. She is agreeable with plan, we discussed risk and benefits of blood transfusion, patient agreeable to transfusion. Case discussed with PETER Florian, can accept patient for admission. Patient admitted in stable condition Undiagnosed new problem with uncertain prognosis? @ -No Drug Therapy requiring intensive monitoring for toxicity (Heparin, Nitro, Insulin, Cardizem)? @ -No Were any procedures done? @ -No Diagnosis/symptom? @ Lower GI bleed, symptomatic anemia, stable angina Acute, or Chronic, or Acute on Chronic? @Acute Uncomplicated (without systemic symptoms) or Complicated (systemic symptoms)? @ complicated Side effects of treatment? @ -No Exacerbation, Progression, or Severe Exacerbation? @ -No Poses a threat to life or bodily function? How? (Chest pain, USA, DC, pneumonia, PE, COPD, DKA, ARF, appy, cholecystitis, CVA, Diverticulitis, Homicidal, Suicidal, threat to staff... and all critical care pts) @ -Yes, could lead to hemorrhagic shock or endorgan damage due to decreased perfusion, this is evidenced by patient's elevated troponin and exertional CP - Lab Data Result diagrams: 03/04/24 20:47 03/04/24 20:47 Lab Results 03/04/24 03/04/24 03/04/24 Range/Units 20:47 20:47 20:47 WBC 8.2 (3.8-10.6) k/uL RBC 1.99 L (3.80-5.40) m/uL Hgb 6.6 L* D (11.4-16.0) gm/dL Hct 18.9 L* (34.0-46.0) % MCV 95.0 (80.0-100.0) fL MCH 33.2 (25.0-35.0) pg MCHC 35.0 (31.0-37.0) g/dL RDW 17.2 H (11.5-15.5) % Plt Count 201 (150-450) k/uL MPV 8.1 Neutrophils % 65 % Lymphocytes % 25 % Monocytes % 6 % Eosinophils % 2 % Basophils % 0 % Neutrophils # 5.3 (1.3-7.7) k/uL Lymphocytes # 2.0 (1.0-4.8) k/uL Monocytes # 0.5 (0-1.0) k/uL Eosinophils # 0.2 (0-0.7) k/uL Basophils # 0.0 (0-0.2) k/uL Anisocytosis Slight PT (10.0-12.5) sec INR (<1.2) APTT (22.0-30.0) sec Sodium 137 (137-145) mmol/L Potassium 3.8 (3.5-5.1) mmol/L Chloride 110 H (98-107) mmol/L Carbon Dioxide 18 L (22-30) mmol/L Anion Gap 9 mmol/L BUN 39 H (7-17) mg/dL Creatinine 1.54 H (0.52-1.04) mg/dL Est GFR (CKD-EPI)AfAm 38 (>60 ml/min/1.73 sqM) Est GFR (CKD-EPI)NonAf 33 (>60 ml/min/1.73 sqM) Glucose 163 H (74-99) mg/dL Calcium 8.5 (8.4-10.2) mg/dL Magnesium 2.2 (1.6-2.3) mg/dL Total Bilirubin 0.2 (0.2-1.3) mg/dL AST 19 (14-36) U/L ALT 15 (4-34) U/L Alkaline Phosphatase 61 (38-126) U/L Troponin I 0.121 H* (0.000-0.034) ng/mL Total Protein 5.9 L (6.3-8.2) g/dL Albumin 3.5 (3.5-5.0) g/dL Lipase 134 (23-300) U/L Stool Occult Blood (Negative) Blood Type Blood Type Recheck Bld Type Recheck Status Antibody Screen Crossmatch Spec Expiration Date 03/04/24 03/04/24 03/04/24 Range/Units 20:47 20:48 21:41 WBC (3.8-10.6) k/uL RBC (3.80-5.40) m/uL Hgb (11.4-16.0) gm/dL Hct (34.0-46.0) % MCV (80.0-100.0) fL MCH (25.0-35.0) pg MCHC (31.0-37.0) g/dL RDW (11.5-15.5) % Plt Count (150-450) k/uL MPV Neutrophils % % Lymphocytes % % Monocytes % % Eosinophils % % Basophils % % Neutrophils # (1.3-7.7) k/uL Lymphocytes # (1.0-4.8) k/uL Monocytes # (0-1.0) k/uL Eosinophils # (0-0.7) k/uL Basophils # (0-0.2) k/uL Anisocytosis PT 10.2 (10.0-12.5) sec INR 0.9 (<1.2) APTT 18.7 L (22.0-30.0) sec Sodium (137-145) mmol/L Potassium (3.5-5.1) mmol/L Chloride (98-107) mmol/L Carbon Dioxide (22-30) mmol/L Anion Gap mmol/L BUN (7-17) mg/dL Creatinine (0.52-1.04) mg/dL Est GFR (CKD-EPI)AfAm (>60 ml/min/1.73 sqM) Est GFR (CKD-EPI)NonAf (>60 ml/min/1.73 sqM) Glucose (74-99) mg/dL Calcium (8.4-10.2) mg/dL Magnesium (1.6-2.3) mg/dL Total Bilirubin (0.2-1.3) mg/dL AST (14-36) U/L ALT (4-34) U/L Alkaline Phosphatase (38-126) U/L Troponin I (0.000-0.034) ng/mL Total Protein (6.3-8.2) g/dL Albumin (3.5-5.0) g/dL Lipase (23-300) U/L Stool Occult Blood Positive H (Negative) Blood Type A Positive Blood Type Recheck A Pos Bld Type Recheck Status No Antibody Screen NEGATIVE Crossmatch See Detail Spec Expiration Date 03/07/20242347 Disposition Clinical Impression: Stable angina, Lower GI bleed Disposition: ADMITTED IP TO THIS [facility] Condition: Stable
[2024-03-04 21:21] LABS: ALT 15 U/L (4-34); AST 19 U/L (14-36); African American GFR (CKD) 38 (>60 ml/min/1.73 sqM); Albumin 3.5 g/dL (3.5-5.0); Alkaline Phosphatase 61 U/L (38-126); Anion Gap 9 mmol/L; Blood Urea Nitrogen 39 mg/dL (7-17); Calcium 8.5 mg/dL (8.4-10.2); Carbon Dioxide 18 mmol/L (22-30); Chloride 110 mmol/L (98-107); Glucose 163 mg/dL (74-99); Lipase 134 U/L (23-300); Magnesium 2.2 mg/dL (1.6-2.3); Non-African American GFR(CKD) 33 (>60 ml/min/1.73 sqM); Potassium 3.8 mmol/L (3.5-5.1); Sodium 137 mmol/L (137-145); Total Bilirubin 0.2 mg/dL (0.2-1.3); Total Protein 5.9 g/dL (6.3-8.2)
[2024-03-04] MEDS: SODIUM CHLORIDE 0.9% 1,000 ML IV STA (21:29)
[2024-03-04] MEDS: PANTOPRAZOLE 40 MG/10 ML VIAL IVP STA (21:30)
--- NOTE | 2024-03-04 21:34 | XR ---
EXAMINATION TYPE: XR chest 2V DATE OF EXAM: 03/04/2024 9:24 PM COMPARISON: Chest radiographs from 09/05/2023 CLINICAL INDICATION: Female, 78 years old with history of shortness of breath; [facility] TECHNIQUE: XR chest 2V Frontal and lateral views of the chest. FINDINGS: Lungs/Pleura: Low lung volumes are present. There is no evidence of pleural effusion, focal consolida tion, or pneumothorax. Pulmonary vascularity: Unremarkable. Heart/mediastinum: Cardiomediastinal silhouette is unremarkable. Musculoskeletal: No acute osseous pathology. IMPRESSION: Low lung volumes with a generalized hazy appearance which could represent atelectasis. [facility], , 03/04/2024 9:31 PM
[2024-03-04 21:54] LABS: HGB 6.6 gm/dL (11.4-16.0)
[2024-03-04 21:55] LABS: HCT 18.9 % (34.0-46.0)
[2024-03-04 22:13] LABS: INR 0.9 (<1.2); Prothrombin Time 10.2 sec (10.0-12.5)
[2024-03-04] MEDS ORDERED: ALBUTEROL NEBULIZED 2.5 MG/3 ML INHALATION PRN (22:35)
[2024-03-04] MEDS ORDERED: NITROGLYCERIN SL TABS 0.4 MG TAB SUBLINGUAL PRN (22:35)
[2024-03-04] MEDS ORDERED: NALOXONE 0.4 MG/ML 1 ML VIAL IV PRN (22:39)
[2024-03-04] MEDS ORDERED: MELATONIN 3 MG TABLET PO PRN (22:42)
[2024-03-04] MEDS ORDERED: ONDANSETRON 4 MG/2 ML VIAL IVP PRN (22:42)
[2024-03-04] MEDS ORDERED: traMADol 50 MG TAB PO PRN (22:42)
[2024-03-04 22:51] LABS: Partial Thromboplastin Time 18.7 sec (22.0-30.0)
[2024-03-04] MEDS: PREGABALIN 75 MG CAP PO SCH (23:11)
[2024-03-04] MEDS: PREGABALIN 50 MG CAP PO STA (23:11)
[2024-03-04] MEDS: INSULIN DETEMIR (LEVEMIR) 100 UNIT/ML SYR SQ SCH (23:27)
[2024-03-04] MEDS: DEXTROSE 5%-0.45% NACL 1,000 ML IV SCH (23:27)
[2024-03-05] MEDS: ACETAMINOPHEN TAB 325 MG TAB PO PRN (01:52)
[2024-03-05 03:50] LABS: African American GFR (CKD) 42 (>60 ml/min/1.73 sqM); Anion Gap 5 mmol/L; Blood Urea Nitrogen 34 mg/dL (7-17); Calcium 8.1 mg/dL (8.4-10.2); Carbon Dioxide 19 mmol/L (22-30); Chloride 114 mmol/L (98-107); Glucose 126 mg/dL (74-99); Non-African American GFR(CKD) 36 (>60 ml/min/1.73 sqM); Potassium 3.5 mmol/L (3.5-5.1); Sodium 138 mmol/L (137-145)
[2024-03-05 07:56] LABS: Glucose,Whole Blood 112 mg/dL (70-110)
[2024-03-05] MEDS: INSULIN ASPART (NovoLOG) 100 UNIT/ML VIAL SQ SCH (07:56)
[2024-03-05] MEDS: PREGABALIN 75 MG CAP PO SCH (08:12)
[2024-03-05 08:50] LABS: HCT 22.9 % (34.0-46.0); HGB 7.7 gm/dL (11.4-16.0); Hypochromasia Slight; MCH 32.5 pg (25.0-35.0); MCHC 33.5 g/dL (31.0-37.0); MCV 96.8 fL (80.0-100.0); Mean Platelet Volume 8.2; Platelet Count 150 k/uL (150-450); RBC 2.36 m/uL (3.80-5.40); WBC 7.8 k/uL (3.8-10.6)
[2024-03-05] MEDS: allopurinoL 100 MG TAB PO SCH (08:53)
[2024-03-05] MEDS: ISOSORBIDE MONONITRATE ER 30 MG TAB.ER.24H PO SCH (08:53)
[2024-03-05] MEDS: DAPAGLIFLOZIN PROPANEDIOL 5 MG TABLET PO SCH (08:53)
[2024-03-05] MEDS: METOPROLOL SUCCINATE (ER) 50 MG TAB.ER.24H PO SCH (08:54)
[2024-03-05] MEDS: amLODIPine 2.5 MG TAB PO SCH (08:54)
[2024-03-05] MEDS: ASCORBIC ACID 500 MG TAB PO SCH (08:54)
[2024-03-05] MEDS: MULTIVITAMINS, THERA 1 EACH TAB PO SCH (08:54)
[2024-03-05] MEDS: CHOLECALCIFEROL 10 MCG (400 IU) TABLET PO SCH (08:54)
[2024-03-05] MEDS: metFORMIN 850 MG TAB PO SCH (08:55)
[2024-03-05] MEDS: PANTOPRAZOLE 40 MG/10 ML VIAL IV SCH (08:55)
[2024-03-05] MEDS ORDERED: EZETIMIBE 10 MG TAB PO SCH (09:00)
--- NOTE | 2024-03-05 11:04 | P.CONS ---
History of Present Illness - Reason for Consult Consult date: 03/05/24 Lower GI bleed Requesting physician: Lady Lozano - Chief Complaint Rectal bleeding - History of Present Illness This a pleasant 78-year-old female who presented to the emergency department after several episodes of bright red rectal bleeding. She has a past medical hi story including coronary artery disease status post stenting and CABG on aspirin and Plavix, diabetes mellitus, hyperlipidemia hypertension, COPD, and chronic kidney disease. Patient states that after Thanks she had become constipated, she had used prune juice and some laxative is and had a large bowel movement the following Monday that had bright red blood. Following that she had 3-4 more episodes of intermittent bright red blood per rectum with bowel movement. Her last 1 was over 24 hours ago. She had become so weak she had fallen and then states she slept for 3 hours. She was seen yesterday by her PCP and sent home however continued to be extremely weak and came into the emergency department for further evaluation. Patient was noted to have a hemoglobin of 6.6. She is status post 2 units of blood. She had a positive occult stool. She had elevated troponins x 3 which cardiology are following and have cleared with no acute coronary event. She denies any previous history of GI bleed. She denies any abdominal pain, nausea or vomiting. Last colonoscopy was March which was a normal colonoscopy. No previous upper endoscopy. Denies any epigastric pain or GERD. Review of Systems REVIEW OF SYSTEMS: CARDIOPULMONARY: No chest pain or shortness of breath. Gastrointestinal: No abdominal pain. No nausea or vomiting. No hematemesis, coffee-ground emesis. Bright red rectal bleeding. GENITOURINARY: No dysuria or hematuria. MUSCULOSKELETAL: Reports normal range of motion. SKIN: No rashes. No jaundice. ENDOCRINE: No chills, fevers. No excessive weight gain or loss. No polydipsia or polyuria. PSYCHIATRIC: Unremarkable. NEUROLOGY: No change in mental status. Denies dizziness, headache. ENT: Vision unremarkable. CONSTITUTIONAL: No recent weight loss. No fever, chills, night sweats. Past Medical History Past Medical History: Coronary Artery Disease (CAD), Diabetes Mellitus, Hyper lipidemia, Hypertension, Sleep Apnea/CPAP/BIPAP Additional Past Medical History / Comment(s): arthritis, neuropathy, kidney stones, unstable angina,uses cpap History of Any Multi-Drug Resistant Organisms: None Reported Past Surgical History: Heart Catheterization With Stent, Hysterectomy Additional Past Surgical History / Comment(s): D and C X2, Cataract bilateral X2 Past Anesthesia/Blood Transfusion Reactions: Postoperative Nausea & Vomiting (PONV) Date of Last Stent Placement:: Past Psychological History: No Psychological Hx Reported Smoking Status: Never smoker Past Alcohol Use History: Occasional Past Drug Use History: None Reported - Past Family History Mother Family Medical History: Coronary Artery Disease (CAD), Diabetes Mellitus Father Additional Family Medical History / Comment(s): emphysema,heart problems Sister(s) Family Medical History: Cancer, Diabetes Mellitus Additional Family Medical History / Comment(s): breast Brother(s) Family Medical History: Diabetes Mellitus, Myocardial Infarction ([place]) Medications and Allergies Home Medications Medication Instructions Recorded Confirmed Type Atorvastatin [Lipitor] 40 mg PO HS 12/30/15 03/05/24 History INSULIN LISPRO (humaLOG) [humaLOG] 20 units SQ AC-BRKFST 12/30/15 03/05/24 History INSULIN LISPRO (humaLOG) [humaLOG] 35 units SQ AC-SUPPER 12/30/15 03/05/24 History Insulin Glargine,Hum.rec.anlog 40 unit SQ HS 12/30/15 03/05/24 History [Lantus Solostar Pen] Furosemide [Lasix] 20 mg PO DAILY 06/05/18 03/05/24 History Empagliflozin [Jardiance] 10 mg PO DAILY 09/05/23 03/05/24 History allopurinoL 100 mg PO DAILY 09/05/23 03/05/24 History ALPRAZolam [Xanax] 0.25 mg PO BID PRN 03/05/24 03/05/24 History Clopidogrel [Plavix] 75 mg PO DAILY 03/05/24 03/05/24 History Ferrous Sulfate [Feosol] 325 mg PO DAILY 03/05/24 03/05/24 History INSULIN LISPRO (HumaLOG) [humaLOG] 30 units SQ AC-LUNCH 03/05/24 03/05/24 History Metoprolol Succinate (ER) [Toprol 25 mg PO DAILY 03/05/24 03/05/24 History Xl] Pregabalin [Lyrica] 100 mg PO TID 03/05/24 03/05/24 History Semaglutide [Ozempic] 0.5 - 1 mg SQ TU 03/05/24 03/05/24 History Silver Sulfadiazine [SSD 1% Cream] 1 applic TOPICAL DAILY PRN 03/05/24 03/05/24 History Allergies Allergy/AdvReac Type Severity Reaction Status Date / Time Penicillins Allergy Rash/Hives Verified 03/05/24 08:18 ragweed pollen Allergy Rash/Hives Verified 03/05/24 08:18 Physical Exam Vitals: Vital Signs Temp Pulse Resp BP Pulse Ox 03/05/24 07:06 98.1 F 71 18 119/50 98 03/05/24 06:45 98.1 F 72 16 109/50 96 03/05/24 05:25 75 16 108/53 98 03/05/24 04:00 98.6 F 78 18 120/51 97 03/05/24 03:40 97.6 F 80 18 128/62 03/05/24 03:22 97.6 F 72 18 102/52 95 03/05/24 03:21 98.0 F 70 16 120/53 96 03/05/24 02:00 78 18 122/57 96 03/05/24 01:16 98.3 F 76 16 103/54 96 03/05/24 01:00 75 18 115/46 97 03/05/24 00:56 98 F 75 18 115/46 97 03/05/24 00:55 98.0 F 75 18 115/46 97 03/05/24 00:49 68 16 108/43 96 03/05/24 00:41 98.6 F 74 16 107/80 96 03/05/24 00:00 98.0 F 71 16 127/54 98 03/04/24 23:31 97.6 F 77 18 119/55 98 03/04/24 20:16 99.2 F 81 18 115/68 98 Intake and Output 03/04/24 03/05/24 03/05/24 22:59 06:59 14:59 Intake Total 310 Balance 310 Intake: Blood Product 310 Rc As-1 Unit 0 [id number] Rc As-1 Unit 310 [id number] Other: Weight 98.883 kg General appearance: The patient is alert, oriented, appears in no acute distress. HET: Head is normocephalic and atraumatic. Conjunctiva pink. Sclera anicteric. Neck: Supple without lymphadenopathy. Trachea midline. Heart: Regular. Lungs: Equal expansion, normal respiratory effort. Abdomen: Soft, nontender, nondistended. Skin: No rashes. No jaundice. Extremities: Normal skin color and turgor. No pedal edema. Neurological: No focal deficits. Alert and oriented x3. Results CBC & Chem 7: 03/05/24 08:17 03/05/24 03:15 Labs: Abnormal Lab Results - Last 24 Hours (Table) 03/04/24 03/04/24 03/04/24 Range/Units 20:47 20:47 20:47 RBC 1.99 L (3.80-5.40) m/uL Hgb 6.6 L* D (11.4-16.0) gm/dL Hct 18.9 L* (34.0-46.0) % RDW 17.2 H (11.5-15.5) % APTT (22.0-30.0) sec Chloride 110 H (98-107) mmol/L Carbon Dioxide 18 L (22-30) mmol/L BUN 39 H (7-17) mg/dL Creatinine 1.54 H (0.52-1.04) mg/dL Glucose 163 H (74-99) mg/dL POC Glucose (mg/dL) (70-110) mg/dL Calcium (8.4-10.2) mg/dL Troponin I 0.121 H* (0.000-0.034) ng/mL Total Protein 5.9 L (6.3-8.2) g/dL Stool Occult Blood (Negative) Crossmatch 03/04/24 03/04/24 03/04/24 Range/Units 20:47 20:48 21:41 RBC (3.80-5.40) m/uL Hgb (11.4-16.0) gm/dL Hct (34.0-46.0) % RDW (11.5-15.5) % APTT 18.7 L (22.0-30.0) sec Chloride (98-107) mmol/L Carbon Dioxide (22-30) mmol/L BUN (7-17) mg/dL Creatinine (0.52-1.04) mg/dL Glucose (74-99) mg/dL POC Glucose (mg/dL) (70-110) mg/dL Calcium (8.4-10.2) mg/dL Troponin I (0.000-0.034) ng/mL Total Protein (6.3-8.2) g/dL Stool Occult Blood Positive H (Negative) Crossmatch See Detail 03/05/24 03/05/24 03/05/24 Range/Units 00:15 03:15 03:15 RBC (3.80-5.40) m/uL Hgb (11.4-16.0) gm/dL Hct (34.0-46.0) % RDW (11.5-15.5) % APTT (22.0-30.0) sec Chloride 114 H (98-107) mmol/L Carbon Dioxide 19 L (22-30) mmol/L BUN 34 H (7-17) mg/dL Creatinine 1.41 H (0.52-1.04) mg/dL Glucose 126 H (74-99) mg/dL POC Glucose (mg/dL) (70-110) mg/dL Calcium 8.1 L (8.4-10.2) mg/dL Troponin I 0.124 H* 0.127 H* (0.000-0.034) ng/mL Total Protein (6.3-8.2) g/dL Stool Occult Blood (Negative) Crossmatch 03/05/24 Range/Units 07:55 RBC (3.80-5.40) m/uL Hgb (11.4-16.0) gm/dL Hct (34.0-46.0) % RDW (11.5-15.5) % APTT (22.0-30.0) sec Chloride (98-107) mmol/L Carbon Dioxide (22-30) mmol/L BUN (7-17) mg/dL Creatinine (0.52-1.04) mg/dL Glucose (74-99) mg/dL POC Glucose (mg/dL) 112 H (70-110) mg/dL Calcium (8.4-10.2) mg/dL Troponin I (0.000-0.034) ng/mL Total Protein (6.3-8.2) g/dL Stool Occult Blood (Negative) Crossmatch Comments: Chest x-ray reports low lung volumes with a generalized hazy appearance which could represent atelectasis Assessment and Plan (1) GI bleed Narrative/Plan: 78-year-old female presenting with rectal bleeding times several days with a drop in her hemoglobin to 6.6 with symptomatic anemia. Patient has a history of coronary artery disease on aspirin and Plavix which is currently held. No previous history of GI bleed. States she does have a history of hemorrhoids however with the amount of bleeding patient states that she has had with a significant drop in her hemoglobin need to consider all other possible source of GI bleed. Will proceed with both upper and lower endoscopy for further evaluation. Continue to hold Plavix. Current Visit: Yes Status: Acute Code(s): K92.2 - GASTROINTESTINAL HEMORRHAGE, UNSPECIFIED SNOMED Code(s): 85745585 (2) Elevated troponin Narrative/Plan: Seen and cleared by cardiology for no acute coronary event. Likely secondary to anemia. Current Visit: Yes Status: Acute Code(s): R79.89 - OTHER SPECIFIED ABNORMAL FINDINGS OF BLOOD CHEMISTRY SNOMED Code(s): 028409253 (3) Coronary artery disease Current Visit: Yes Status: Acute Code(s): I25.10 - ATHSCL HEART DISEASE OF [place] CORONARY ARTERY W/O ANG PCTRS SNOMED Code(s): 28756173 (4) Anemia Current Visit: Yes Status: Acute Code(s): D64.9 - ANEMIA, UNSPECIFIED SNOMED Code(s): 700318696 Plan: 1. Continue symptomatic and supportive care 2. Daily CBC, transfuse for hemoglobin less than 7 3. Protonix 40 mg daily 4. Hold aspirin and Plavix 5. Patient may have clear liquid diet, n.p.o. after midnight 6. Bowel prep this evening 7. Will plan for EGD and colonoscopy tomorrow. Patient was cleared by cardiology. Thank you for this consultation, we will continue to follow. Dr. Bennie Bates I agree with the dictator's note, documented as a scribe by Ivania Tamez.
--- NOTE | 2024-03-05 11:15 | P.CRDCN ---
History of Present Illness History of present illness: HISTORY OF PRESENT ILLNESS: This is a 78-year-old female with a past medical history significant for coronary artery disease with previous CABG, hypertension, hyperlipidemia, diabetes, and obesity. Patient is scheduled to establish care in the office with Dr. Huffman. We have been asked to see the patient in consultation for elevated troponins. Patient examined at the bedside in the emergency room. Patient was sent into the hospital by her primary physician. Patient reports that recently she became very constipated. She states when she finally started to have bowel movements that she had a lot of bright red blood and blood clots. Patient is on aspirin 81 mg daily and Plavix 75 mg daily secondary to [facility] The patient currently denies any chest pain or pressure. She denies any shortness of breath. Vital signs are stable. DIAGNOSTICS: - EKG reveals sinus mechanism with no signs of acute ischemia - Chest xray low lung volumes with generalized hazy appearance which could represent atelectasis - Laboratory data: WBC 7.8. Hemoglobin 7.7. Platelet count 150. Sodium 138. Potassium 3.5. BUN 34. Creatinine 1.41. Troponin 0.121. 0.124. 0.127. - Current home cardiac medications include Lipitor 40 mg at night, Lasix 20 mg daily, Jardiance 10 mg daily, metoprolol succinate 25 mg daily, Plavix 75 mg daily, and aspirin 81 mg daily - Most recent echocardiogram obtained in August 2023 revealed ejection fraction 55 to 60%, mild MR, trace TR REVIEW OF SYSTEMS: At the time of my exam: CONSTITUTIONAL: Denies fever or chills. HEENT: Denies blurred vision, vision changes, or eye pain. Denies hemoptysis CARDIOVASCULAR: Denies chest pain. Denies orthopnea. Denies PND. Denies palpitations RESPIRATORY: Denies shortness of breath. GASTROINTESTINAL: Denies abdominal pain. Denies nausea or vomiting. HEMATOLOGIC: Denies bleeding disorders. GENITOURINARY: Denies any blood in urine. SKIN: Denies pruitis. Denies rash. PHYSICAL EXAM: VITAL SIGNS: Reviewed. GENERAL: Well-developed in no acute distress. HEENT: Head is normocephalic. Pupils are equal, round. Sclerae anicteric. Mucous membranes of the mouth are moist. Neck supple. No JVD or thyromegaly LUNGS: Respirations even and unlabored. Lungs essentially clear to auscultation bilaterally. HEART: Regular rate and rhythm. S1 and S2 heard. ABDOMEN: Soft. Nondistended. Nontender. EXTREMITIES: Normal range of motion. No clubbing or cyanosis. Peripheral pulses intact. No lower extremity edema NEUROLOGIC: Awake and alert. Oriented x 3. ASSESSMENT: GI bleed, bright red blood per rectum Acute blood loss anemia, requiring RBC transfusion Coronary artery disease with recent CABG, on aspirin and Plavix Elevated troponin, flat, type II [place] secondary to severe anemia Hypertension Hyperlipidemia Diabetes Obesity: BMI 33.1 PLAN: An acute coronary event has been ruled out No need to obtain echocardiogram at this time Continue to hold aspirin and Plavix Patient is scheduled to undergo endoscopy with GI services. No absolute contraindication for patient to proceed with endoscopy from cardiac standpoint Further recommendations pending patient course Nurse practitioner note has been reviewed by physician. Signing provider agrees with the documented findings, assessment, and plan of care documented by [employer] as a scribe. Past Medical History Past Medical History: Coronary Artery Disease (CAD), Diabetes Mellitus, Hyperlipidemia, Hypertension, Sleep Apnea/CPAP/BIPAP Additional Past Medical History / Comment(s): arthritis, neuropathy, kidney stones, unstable angina,uses cpap History of Any Multi-Drug Resistant Organisms: None Reported Past Surgical History: Heart Catheterization With Stent, Hysterectomy Additional Past Surgical History / Comment(s): D and C X2, Cataract bilateral X2 Past Anesthesia/Blood Transfusion Reactions: Postoperative Nausea & Vomiting (PONV) Date of Last Stent Placement:: Past Psychological History: No Psychological Hx Reported Smoking Status: Never smoker Past Alcohol Use History: Occasional Past Drug Use History: None Reported - Past Family History Mother Family Medical History: Coronary Artery Disease (CAD), Diabetes Mellitus Father Additional Family Medical History / Comment(s): emphysema,heart problems Sister(s) Family Medical History: Cancer, Diabetes Mellitus Additional Family Medical History / Comment(s): breast Brother(s) Family Medical History: Diabetes Mellitus, Myocardial Infarction ([place]) Medications and Allergies Home Medications Medication Instructions Recorded Confirmed Type Atorvastatin [Lipitor] 40 mg PO HS 12/30/15 03/05/24 History INSULIN LISPRO (humaLOG) [humaLOG] 20 units SQ AC-BRKFST 12/30/15 03/05/24 History INSULIN LISPRO (humaLOG) [humaLOG] 35 units SQ AC-SUPPER 12/30/15 03/05/24 History Insulin Glargine,Hum.rec.anlog 40 unit SQ HS 12/30/15 03/05/24 History [Lantus Solostar Pen] Furosemide [Lasix] 20 mg PO DAILY 06/05/18 03/05/24 History Empagliflozin [Jardiance] 10 mg PO DAILY 09/05/23 03/05/24 History allopurinoL 100 mg PO DAILY 09/05/23 03/05/24 History ALPRAZolam [Xanax] 0.25 mg PO BID PRN 03/05/24 03/05/24 History Clopidogrel [Plavix] 75 mg PO DAILY 03/05/24 03/05/24 History Ferrous Sulfate [Feosol] 325 mg PO DAILY 03/05/24 03/05/24 History INSULIN LISPRO (HumaLOG) [humaLOG] 30 units SQ AC-LUNCH 03/05/24 03/05/24 History Metoprolol Succinate (ER) [Toprol 25 mg PO DAILY 03/05/24 03/05/24 History Xl] Pregabalin [Lyrica] 100 mg PO TID 03/05/24 03/05/24 History Semaglutide [Ozempic] 0.5 - 1 mg SQ TU 03/05/24 03/05/24 History Silver Sulfadiazine [SSD 1% Cream] 1 applic TOPICAL DAILY PRN 03/05/24 03/05/24 History Allergies Allergy/AdvReac Type Severity Reaction Status Date / Time Penicillins Allergy Rash/Hives Verified 03/05/24 08:18 ragweed pollen Allergy Rash/Hives Verified 03/05/24 08:18 Physical Exam Vitals: Vital Signs Temp Pulse Resp BP Pulse Ox 03/05/24 07:06 98.1 F 71 18 119/50 98 03/05/24 06:45 98.1 F 72 16 109/50 96 03/05/24 05:25 75 16 108/53 98 03/05/24 04:00 98.6 F 78 18 120/51 97 03/05/24 03:40 97.6 F 80 18 128/62 03/05/24 03:22 97.6 F 72 18 102/52 95 03/05/24 03:21 98.0 F 70 16 120/53 96 12/10/24 02:00 78 18 122/57 96 03/05/24 01:16 98.3 F 76 16 103/54 96 03/05/24 01:00 75 18 115/46 97 03/05/24 00:56 98 F 75 18 115/46 97 03/05/24 00:55 98.0 F 75 18 115/46 97 03/05/24 00:49 68 16 108/43 96 03/05/24 00:41 98.6 F 74 16 107/80 96 03/05/24 00:00 98.0 F 71 16 127/54 98 03/04/24 23:31 97.6 F 77 18 119/55 98 03/04/24 20:16 99.2 F 81 18 115/68 98 Intake and Output 03/04/24 03/05/24 03/05/24 22:59 06:59 14:59 Intake Total 310 Balance 310 Intake: Blood Product 310 Rc As-1 Unit 0 [id number] Rc As-1 Unit 310 [id number] Other: Weight 98.883 kg Results 03/05/24 08:17 03/05/24 03:15 Cardiac Enzymes 03/04/24 03/04/24 03/05/24 Range/Units 20:47 20:47 00:15 AST 19 (14-36) U/L Troponin I 0.121 H* 0.124 H* (0.000-0.034) ng/mL 03/05/24 Range/Units 03:15 AST (14-36) U/L Troponin I 0.127 H* (0.000-0.034) ng/mL Coagulation 03/04/24 Range/Units 21:41 PT 10.2 (10.0-12.5) sec APTT 18.7 L (22.0-30.0) sec CBC 03/04/24 Range/Units 20:47 WBC 8.2 (3.8-10.6) k/uL RBC 1.99 L (3.80-5.40) m/uL Hgb 6.6 L* D (11.4-16.0) gm/dL Hct 18.9 L* (34.0-46.0) % Plt Count 201 (150-450) k/uL Comprehensive Metabolic Panel 03/04/24 03/05/24 Range/Units 20:47 03:15 Sodium 137 138 (137-145) mmol/L Potassium 3.8 3.5 (3.5-5.1) mmol/L Chloride 110 H 114 H (98-107) mmol/L Carbon Dioxide 18 L 19 L (22-30) mmol/L BUN 39 H 34 H (7-17) mg/dL Creatinine 1.54 H 1.41 H (0.52-1.04) mg/dL Glucose 163 H 126 H (74-99) mg/dL Calcium 8.5 8.1 L (8.4-10.2) mg/dL AST 19 (14-36) U/L ALT 15 (4-34) U/L Alkaline Phosphatase 61 (38-126) U/L Total Protein 5.9 L (6.3-8.2) g/dL Albumin 3.5 (3.5-5.0) g/dL Current Medications Generic Name Dose Route Start Last Admin Trade Name Freq PRN Reason Stop Dose Admin Acetaminophen 650 mg 03/04/24 22:42 03/05/24 01:52 Acetaminophen Tab 325 Mg Tab PO 650 mg Q6HR PRN Administration Mild Pain or Fever > 100.5 Albuterol Sulfate 2.5 mg 03/04/24 22:35 Albuterol Nebulized 2.5 Mg/3 Ml INHALATION RT-Q6H PRN Shortness Of Breath Allopurinol 50 mg 03/05/24 09:00 Allopurinol 100 Mg Tab PO DAILY [facility] Amlodipine Besylate 2.5 mg 03/05/24 09:00 Amlodipine 2.5 Mg Tab PO DAILY [facility] Ascorbic Acid 500 mg 03/05/24 09:00 Ascorbic Acid 500 Mg Tab PO DAILY [facility] Atorvastatin Calcium 40 mg 03/05/24 21:00 Atorvastatin 40 Mg Tab PO HS [facility] Cholecalciferol 10 mcg 03/05/24 09:00 Cholecalciferol 10 Mcg (400 Iu) Tablet PO DAILY [facility] Dapagliflozin 5 mg 03/05/24 09:00 Dapagliflozin Propanediol 5 Mg Tablet PO DAILY [facility] Ezetimibe 10 mg 03/05/24 09:00 Ezetimibe 10 Mg Tab PO DAILY [facility] Dextrose/Sodium Chloride 1,000 mls @ 75 mls/hr 03/04/24 22:45 03/04/24 23:27 Dextrose 5%-1/2ns Iv Soln IV 75 mls/hr .[id number] [facility] Administration Insulin Aspart 20 unit 03/05/24 07:00 03/05/24 07:56 Insulin Aspart (Novolog) 100 Unit/Ml Vial SQ Not Given AC-BID@0700,1200 [facility] Insulin Detemir 40 unit 03/04/24 22:45 03/04/24 23:27 Insulin Detemir (Levemir) 100 Unit/Ml Syr SQ 40 unit HS [facility] Administration Isosorbide Mononitrate 30 mg 03/05/24 09:00 Isosorbide Mononitrate Er 30 Mg Tab.Er.24h PO DAILY [facility] Losartan Potassium 100 mg 03/05/24 21:00 Losartan 50 Mg Tab PO HS [facility] Melatonin 6 mg 03/04/24 22:42 Melatonin 3 Mg Tablet PO HS PRN Insomnia Metformin HCl 850 mg 03/05/24 09:00 Metformin 850 Mg Tab PO DAILY [facility] Metoprolol Succinate 50 mg 03/05/24 09:00 Metoprolol Succinate (Er) 50 Mg Tab.Er.24h PO BID [facility] Multivitamins 1 each 03/05/24 09:00 Multivitamins, Thera 1 Each Tab PO DAILY [facility] Naloxone HCl 0.2 mg 03/04/24 22:39 Naloxone 0.4 Mg/Ml 1 Ml Vial IV Q2M PRN Opioid Reversal Nitroglycerin 0.4 mg 03/04/24 22:35 Nitroglycerin Sl Tabs 0.4 Mg Tab SUBLINGUAL Q5M PRN Chest Pain Ondansetron HCl 4 mg 03/04/24 22:42 Ondansetron 4 Mg/2 Ml Vial IVP Q8HR PRN Nausea And Vomiting Pantoprazole Sodium 40 mg 03/05/24 09:00 Pantoprazole 40 Mg/10 Ml Vial IV DAILY [facility] Pregabalin 150 mg 03/04/24 22:35 03/04/24 23:11 Pregabalin 75 Mg Cap PO 150 mg HS [facility] Administration Pregabalin 75 mg 03/05/24 07:30 Pregabalin 75 Mg Cap PO BID-W/MEALS [facility] Tramadol HCl 50 mg 03/04/24 22:42 Tramadol 50 Mg Tab PO Q6H PRN Moderate Pain (Scale 4 to 6) Intake and Output 03/04/24 03/05/24 03/05/24 22:59 06:59 14:59 Intake Total 310 Balance 310 Intake: Blood Product 310 Rc As-1 Unit 0 [id number] Rc As-1 Unit 310 [id number] Other: Weight 98.883 kg 03/04/24 20:47 03/05/24 03:15
[2024-03-05 12:13] LABS: Glucose,Whole Blood 149 mg/dL (70-110)
--- NOTE | 2024-03-05 13:13 | P.HPIM ---
History of Present Illness H&P Date: 03/05/24 History of present illness; Patient is a 78-year-old female with CAD, diabetes mellitus, hyperlipidemia, hypertension, KAVITA who presents for generalized weakness. Patient states she has intermittent bleeding since around . She was seen Monday in the ED and was subsequently discharged. After discharge, bleeding progressed Monday morning and she states she had multiple episodes of large-volume bright red blood with clots per rectum, which is the last time she states she had bloody fior wel movement. She also reports associated symptoms of worsening weakness, dizziness with fall, dull nonradiating chest pain and shortness of breath with exertion. She saw her PCP Dr. Bernstein who encouraged her to come to ER for further evaluation. She was on Plavix and aspirin daily until yesterday. She denies any episodes of syncope. Currently she is denying chest pain, abdominal pain, fevers, hematuria, vaginal bleeding, melena. In the ER she was treated with 2 units packed RBC, 1 L NS, D5.45 NS at 75 mL/h. Initial lab workup WBC 8.2, hemoglobin 6.6, hematocrit 18.9, MCV 95, platelets 201, APTT 18.7, sodium 137, potassium 3.8, chloride 110, bicarb 18, gap 9, BUN 39, creatinine 1.54, gl ucose 163, troponin 0.121, stool occult blood positive. EKG done in the ER independently interpreted showed heart rate of 78, no ST segment elevation or depression seen. Some new T wave inversion in V5 and aVL compared to prior EKG. Chest x-ray done independently interpreted in the ER showed generalized haziness throughout possible atelectasis. Spoke with the ER physician, patient admission was accepted by internal medicine service for treatment. REVIEW OF SYSTEMS: Pertinent positives and negatives noted in HPI. PHYSICAL EXAMINATION: Vitals reviewed GENERAL: No acute distress. Well developed, well nourished. HEENT: Pupils are round and equally reacting to light. EOMI. No scleral icterus. Normocephalic, atraumatic. No pharyngeal erythema. No thyromegaly. CARDIOVASCULAR: S1 and S2 present. No murmurs, rubs, or gallops. PULMONARY: Chest is clear to auscultation, no wheezing, rhonchi, or crackles. ABDOMEN: Soft, nontender, nondistended, normoactive bowel sounds. No palpable organomegaly. MUSCULOSKELETAL: Left foot deformity, right knee scar. EXTREMITIES: No apparent cyanosis, clubbing, or pedal edema. NEUROLOGICAL: The patient is alert and oriented x3, Gross neurological examination did not reveal any focal deficits. SKIN: No apparent rashes. Assessment and plan Patient is a 78-year-old female with CAD, diabetes mellitus, hyperlipidemia, hypertension, KAVITA who presents for generalized weakness. # Normocytic anemia, due to lower GI bleed #Generalized weakness Initial hemoglobin 6.6 => 7.7. Transfused with 2 units pRBC Ferritin, folate, B12 pending Continue D5W with .45 NS Pantoprazole 40 IV daily Plan colonoscopy tomorrow, clear liquid diet, n.p.o. after midnight GI following #Elevated troponin Continuous cardiac monitoring - Resume home cardiac medications Cardiology consulted #Stage III CKD Initial BUN 34, creatinine 1.41 Continue to monitor BMP Chronic Medical Conditions # Essential hypertension - Resume home medication #Diabetes mellitus, type 2 Begin Accu-Cheks and low-dose sliding scale, monitor for hypoglycemia Resume home long-acting insulin 40 units #Diabetic neuropathy Resume home medication #Coronary artery disease - Holding home Plavix, Aspirin - Resume home Statin - Resume home Metoprolol #Gout Resume home medication F: IV D5W with .45 NS E: Replete as needed N: Clear liquid diet DVT ppx: Holding due to GI bleed Code status: Full code Anticipated discharge place: Home Anticipated discharge time: 2 to 3 days Dictation was produced using Data[employer] dictation software. Please excuse any grammatical, word or spelling errors. Past Medical History Past Medical History: Coronary Artery Disease (CAD), Diabetes Mellitus, Hyperlipidemia, Hypertension, Sleep Apnea/CPAP/BIPAP Additional Past Medical History / Comment(s): arthritis, neuropathy, kidney stones, unstable angina,uses cpap History of Any Multi-Drug Resistant Organisms: None Reported Past Surgical History: Heart Catheterization With Stent, Hysterectomy Additional Past Surgical History / Comment(s): D and C X2, Cataract bilateral X2 Past Anesthesia/Blood Transfusion Reactions: Postoperative Nausea & Vomiting (PONV) Date of Last Stent Placement:: Past Psychological History: No Psychological Hx Reported Smoking Status: Never smoker Past Alcohol Use History: Occasional Past Drug Use History: None Reported - Past Family History Mother Family Medical History: Coronary Artery Disease (CAD), Diabetes Mellitus Father Additional Family Medical History / Comment(s): emphysema,heart problems Sister(s) Family Medical History: Cancer, Diabetes Mellitus Additional Family Medical History / Comment(s): breast Brother(s) Family Medical History: Diabetes Mellitus, Myocardial Infarction ([place]) Medications and Allergies Home Medications Medication Instructions Recorded Confirmed Type Atorvastatin [Lipitor] 40 mg PO HS 12/30/15 03/05/24 History INSULIN LISPRO (humaLOG) [humaLOG] 20 units SQ AC-BRKFST 12/30/15 03/05/24 History INSULIN LISPRO (humaLOG) [humaLOG] 35 units SQ AC-SUPPER 12/30/15 03/05/24 History Insulin Glargine,Hum.rec.anlog 40 unit SQ HS 12/30/15 03/05/24 History [Lantus Solostar Pen] Furosemide [Lasix] 20 mg PO DAILY 06/05/18 03/05/24 History Empagliflozin [Jardiance] 10 mg PO DAILY 09/05/23 03/05/24 History allopurinoL 100 mg PO DAILY 09/05/23 03/05/24 History ALPRAZolam [Xanax] 0.25 mg PO BID PRN 03/05/24 03/05/24 History Clopidogrel [Plavix] 75 mg PO DAILY 03/05/24 03/05/24 History Ferrous Sulfate [Feosol] 325 mg PO DAILY 03/05/24 03/05/24 History INSULIN LISPRO (HumaLOG) [humaLOG] 30 units SQ AC-LUNCH 03/05/24 03/05/24 History Metoprolol Succinate (ER) [Toprol 25 mg PO DAILY 03/05/24 03/05/24 History Xl] Pregabalin [Lyrica] 100 mg PO TID 03/05/24 03/05/24 History Semaglutide [Ozempic] 0.5 - 1 mg SQ TU 03/05/24 03/05/24 History Silver Sulfadiazine [SSD 1% Cream] 1 applic TOPICAL DAILY PRN 03/05/24 03/05/24 History Allergies Allergy/AdvReac Type Severity Reaction Status Date / Time Penicillins Allergy Rash/Hives Verified 03/05/24 08:18 ragweed pollen Allergy Rash/Hives Verified 03/05/24 08:18 Physical Exam Vitals: Vital Signs Temp Pulse Resp BP Pulse Ox 03/05/24 07:06 98.1 F 71 18 119/50 98 03/05/24 06:45 98.1 F 72 16 109/50 96 03/05/24 05:25 75 16 108/53 98 03/05/24 04:00 98.6 F 78 18 120/51 97 03/05/24 03:40 97.6 F 80 18 128/62 03/05/24 03:22 97.6 F 72 18 102/52 95 03/05/24 03:21 98.0 F 70 16 120/53 96 03/05/24 02:00 78 18 122/57 96 03/05/24 01:16 98.3 F 76 16 103/54 96 03/05/24 01:00 75 18 115/46 97 03/05/24 00:56 98 F 75 18 115/46 97 03/05/24 00:55 98.0 F 75 18 115/46 97 03/05/24 00:49 68 16 108/43 96 03/05/24 00:41 98.6 F 74 16 107/80 96 03/05/24 00:00 98.0 F 71 16 127/54 98 03/04/24 23:31 97.6 F 77 18 119/55 98 03/04/24 20:16 99.2 F 81 18 115/68 98 Intake and Output 03/04/24 03/05/24 03/05/24 22:59 06:59 14:59 Intake Total 310 Balance 310 Intake: Blood Product 310 Rc As-1 Unit 0 [id number] Rc As-1 Unit 310 [id number] Other: Weight 98.883 kg Results CBC & Chem 7: 03/05/24 08:17 03/05/24 03:15 Labs: Abnormal Lab Results - Last 24 Hours (Table) 03/04/24 03/04/24 03/04/24 Range/Units 20:47 20:47 20:47 RBC 1.99 L (3.80-5.40) m/uL Hgb 6.6 L* D (11.4-16.0) gm/dL Hct 18.9 L* (34.0-46.0) % RDW 17.2 H (11.5-15.5) % APTT (22.0-30.0) sec Chloride 110 H (98-107) mmol/L Carbon Dioxide 18 L (22-30) mmol/L BUN 39 H (7-17) mg/dL Creatinine 1.54 H (0.52-1.04) mg/dL Glucose 163 H (74-99) mg/dL POC Glucose (mg/dL) (70-110) mg/dL Calcium (8.4-10.2) mg/dL Troponin I 0.121 H* (0.000-0.034) ng/mL Total Protein 5.9 L (6.3-8.2) g/dL Stool Occult Blood (Negative) Crossmatch 03/04/24 03/04/24 03/04/24 Range/Units 20:47 20:48 21:41 RBC (3.80-5.40) m/uL Hgb (11.4-16.0) gm/dL Hct (34.0-46.0) % RDW (11.5-15.5) % APTT 18.7 L (22.0-30.0) sec Chloride (98-107) mmol/L Carbon Dioxide (22-30) mmol/L BUN (7-17) mg/dL Creatinine (0.52-1.04) mg/dL Glucose (74-99) mg/dL POC Glucose (mg/dL) (70-110) mg/dL Calcium (8.4-10.2) mg/dL Troponin I (0.000-0.034) ng/mL Total Protein (6.3-8.2) g/dL Stool Occult Blood Positive H (Negative) Crossmatch See Detail 03/05/24 03/05/24 03/05/24 Range/Units 00:15 03:15 03:15 RBC (3.80-5.40) m/uL Hgb (11.4-16.0) gm/dL Hct (34.0-46.0) % RDW (11.5-15.5) % APTT (22.0-30.0) sec Chloride 114 H (98-107) mmol/L Carbon Dioxide 19 L (22-30) mmol/L BUN 34 H (7-17) mg/dL Creatinine 1.41 H (0.52-1.04) mg/dL Glucose 126 H (74-99) mg/dL POC Glucose (mg/dL) (70-110) mg/dL Calcium 8.1 L (8.4-10.2) mg/dL Troponin I 0.124 H* 0.127 H* (0.000-0.034) ng/mL Total Protein (6.3-8.2) g/dL Stool Occult Blood (Negative) Crossmatch 03/05/24 Range/Units 07:55 RBC (3.80-5.40) m/uL Hgb (11.4-16.0) gm/dL Hct (34.0-46.0) % RDW (11.5-15.5) % APTT (22.0-30.0) sec Chloride (98-107) mmol/L Carbon Dioxide (22-30) mmol/L BUN (7-17) mg/dL Creatinine (0.52-1.04) mg/dL Glucose (74-99) mg/dL POC Glucose (mg/dL) 112 H (70-110) mg/dL Calcium (8.4-10.2) mg/dL Troponin I (0.000-0.034) ng/mL Total Protein (6.3-8.2) g/dL Stool Occult Blood (Negative) Crossmatch
[2024-03-05 13:15] LABS: Glucose,Whole Blood 234 mg/dL (70-110)
[2024-03-05] MEDS: PEG 3350 (236 GM/BTL) + LYTES 4,000 ML BOTTLE PO ONE (18:18)
[2024-03-05] MEDS: LACTATED RINGERS 1,000 ML IV SCH (21:43)
[2024-03-05] MEDS: LOSARTAN 50 MG TAB PO SCH (21:47)
[2024-03-05] MEDS: ATORVASTATIN 40 MG TAB PO SCH (21:47)
[2024-03-05 21:54] LABS: Glucose,Whole Blood 113 mg/dL (70-110)
[2024-03-06 06:44] LABS: Glucose,Whole Blood 131 mg/dL (70-110)
[2024-03-06] MEDS: MORPHINE SULFATE 2 MG/ML SYRINGE IVP STA (07:05)
--- NOTE | 2024-03-06 08:59 | P.PN ---
Subjective HISTORY OF PRESENT ILLNESS: This is a 78-year-old female with a past medical history significant for coronary artery disease with previous CABG, hypertension, hyperlipidemia, diabetes, and obesity. Patient is scheduled to establish care in the office with Dr. Huffman. We have been asked to see the patient in consultation for elevated troponins. Patient examined at the bedside in the emergency room. Patient was sent into the hospital by her primary physician. Patient reports that recently she became very constipated. She states when she finally started to have bowel movements that she had a lot of bright red blood and blood clots. Patient is on aspirin 81 mg daily and Plavix 75 mg daily secondary to CABG performed this summer at [facility]. The patient currently denies any chest pain or pressure. She denies any shortness of breath. Vital signs are stable. DIAGNOSTICS: - EKG reveals sinus mechanism with no signs of acute ischemia - Chest xray low lung volumes with generalized hazy appearance which could represent atelectasis - Laboratory data: WBC 7.8. Hemoglobin 7.7. Platelet count 150. Sodium 138. Potassium 3.5. BUN 34. Creatinine 1.41. Troponin 0.121. 0.124. 0.127. - Current home cardiac medications include Lipitor 40 mg at night, Lasix 20 mg daily, Jardiance 10 mg daily, metoprolol succinate 25 mg daily, Plavix 75 mg daily, and aspirin 81 mg daily - Most recent echocardiogram obtained in August 2023 revealed ejection fraction 55 to 60%, mild MR, trace TR 03/06/2024 Patient examined this morning at the bedside in the ER. Patient denies chest pain or pressure. Denies SOB. Hemoglobin 7.7. Scheduled for endoscopy today. PHYSICAL EXAM: VITAL SIGNS: Reviewed. GENERAL: Well-developed in no acute distress. HEENT: Head is normocephalic. Pupils are equal, round. Sclerae anicteric. Mucous membranes of the mouth are moist. Neck supple. No JVD or thyromegaly LUNGS: Respirations even and unlabored. Lungs essentially clear to auscultation bilaterally. HEART: Regular rate and rhythm. S1 and S2 heard. ABDOMEN: Soft. Nondistended. Nontender. EXTREMITIES: Normal range of motion. No clubbing or cyanosis. Peripheral pulses intact. No lower extremity edema NEUROLOGIC: Awake and alert. Oriented x 3. ASSESSMENT: GI bleed, bright red blood per rectum Acute blood loss anemia, requiring RBC transfusion Coronary artery disease with recent CABG, on aspirin and Plavix Elevated troponin, flat, type II CT secondary to severe anemia, no evidence of ACS Hypertension Hyperlipidemia Diabetes Obesity: BMI 33.1 PLAN: An acute coronary event has been ruled out No need to obtain echocardiogram at this time Continue to hold aspirin and Plavix Patient and family upset because Losartan and Imdur were initially listed as patients home medications and these were resumed by ER physician. Patient states she no longer takes these. Medications discontinued as patient states she no longer takes these medications. Additionally, patients family is upset and does not think she is receiving appropriate care at this facility and are requesting to transfer to [facility]. Dr. Huffman spoke with patient and daughter at bedside who are now agreeable to staying and undergoing endoscopy today Patient is scheduled to undergo endoscopy with GI services. No absolute contraindication for patient to proceed with endoscopy from cardiac standpoint Further recommendations pending patient course Nurse practitioner note has been reviewed by physician. Signing provider agrees with the documented findings, assessment, and plan of care documented by PRINCIPAL EXAMINER as a scribe. Objective - Vital Signs Vital signs: Vital Signs Temp 98.1 F 03/05/24 07:06 Pulse 67 03/06/24 06:47 Resp 16 03/06/24 06:47 BP 139/62 03/06/24 06:47 Pulse Ox 98 03/06/24 06:47 FiO2 - Labs CBC & Chem 7: 03/05/24 08:17 03/05/24 03:15 Labs: Abnormal Lab Results - Last 24 Hours (Table) 03/05/24 03/05/24 03/05/24 Range/Units 12:12 13:13 21:53 POC Glucose (mg/dL) 149 H 234 H 113 H (70-110) mg/dL 03/06/24 Range/Units 06:43 POC Glucose (mg/dL) 131 H (70-110) mg/dL
[2024-03-06 10:32] LABS: Anisocytosis Slight; HCT 24.9 % (34.0-46.0); HGB 8.3 gm/dL (11.4-16.0); Hypochromasia Slight; MCH 32.6 pg (25.0-35.0); MCHC 33.4 g/dL (31.0-37.0); MCV 97.4 fL (80.0-100.0); Macrocytosis Slight; Mean Platelet Volume 8.2; Platelet Count 190 k/uL (150-450); RBC 2.56 m/uL (3.80-5.40); RDW 16.7 % (11.5-15.5); WBC 6.5 k/uL (3.8-10.6)
[2024-03-06 10:50] LABS: African American GFR (CKD) 56 (>60 ml/min/1.73 sqM); Anion Gap 9 mmol/L; Blood Urea Nitrogen 17 mg/dL (7-17); Carbon Dioxide 20 mmol/L (22-30); Chloride 113 mmol/L (98-107); Glucose 144 mg/dL (74-99); Non-African American GFR(CKD) 49 (>60 ml/min/1.73 sqM); Potassium 4.1 mmol/L (3.5-5.1); Sodium 142 mmol/L (137-145)
[2024-03-06 11:37] LABS: Glucose,Whole Blood 152 mg/dL (70-110)
[2024-03-06 12:25] VITALS: RESP 16
[2024-03-06] MEDS ORDERED: LIDOCAINE 1% INJ 10MG/ML (20 ML MDV) ONE (13:53)
[2024-03-06] MEDS ORDERED: PROPOFOL 10 MG/ML 20 ML VIAL IV ONE (13:53)
[2024-03-06] MEDS: LACTATED RINGERS 1,000 ML IV ONE (13:55)
[2024-03-06] MEDS: SODIUM CHLORIDE 0.9% 500 ML 500 ML IV ONE (14:22)
--- NOTE | 2024-03-06 14:23 | P.PCN ---
Date of Procedure: 03/06/24 Procedure(s) Performed: Brief history: Patient is a pleasant 78-year-old white female admitted to hospital with rectal bleeding and symptomatic anemia with a hemoglobin of 6.5 g/dL requiring 2 units of PRBC transfusion. She is scheduled scheduled for an upper endoscopy as well as colonoscopy to evaluate further. Procedure performed: Esophagogastroduodenoscopy Colonoscopy with snare polypectomy Preoperative diagnosis: Acute GI bleed Anesthesia: MAC Procedure: After informed consent was obtained from the patient was brought into the endoscopy unit and IV sedation was administered by anesthesia under continuous monitoring. Initially upper endoscopy was done. The Olympus GF 160 video endoscope was inserted inserted into the mouth and esophagus intubated without any difficulty and was gradually advanced into the stomach and duodenum and carefully examined. The bulb and second part of the duodenum appeared normal. The scope was then withdrawn into the stomach adequately insufflated with air and upon careful examination the antrum revealed gastritis. Mucosa of the body, cardia and fundus appeared normal. The scope was then withdrawn into the esophagus. The GE junction was located at 40 cm to the incisors. It appeared regular with no erythema erosions or ulcerations. Rest of the esophagus appeared normal. Patient tolerated the procedure well. At this time the patient continued to remain sedation. Initial digital rectal examination was normal. Olympus CF 160 video colonoscope was then inserted into the rectum and gradually advanced to the cecum without any difficulty. Careful examination was performed as the scope was gradually being withdrawn. The prep was excellent. The cecum, ascending colon, transverse colon, normal. The descending colon there was a 1 cm polyp removed by snare polypectomy. Scattered left-sided diverticulosis seen. Descending colon, sigmoid colon and rectum appeared normal. Retroflexion was performed in the rectum 1 cm superficial distal ulcer identified just proximal to the dentate line with no active bleeding.. Patient tolerated the procedure well. Impression: 1. Upper endoscopy revealed antral erosive gastritis 2. Colonoscopy revealed a) 1 cm ascending colon polyp status post snare polypectomy b) scattered sigmoid diverticulosis c) 1 cm superficial distal stercoral rectal ulcer just proximal to the dentate line which appears to be the source of bleeding but no active bleeding noted Recommendations: Findings of this examination were discussed with the patient as well as her family. Follow-up with the biopsy results. She was advised to be on a high- fiber diet and take fiber supplements on a regular basis and use MiraLAX as needed for chronic constipation. Advance to regular diet.
[2024-03-06] MEDS: ACETAMINOPHEN IV (For NPO) 1,000 MG in EMPTY BAG 1 BAG IVPB STA (14:43)
[2024-03-06] MEDS: METOPROLOL SUCCINATE (ER) 25 MG TAB.ER.24H PO SCH (14:45)
--- NOTE | 2024-03-06 16:12 | P.DS ---
Providers Date of admission: 03/05/24 08:01 Expected date of discharge: 03/06/24 Attending physician: Fifi Atkinson Consults: 03/04/24 22:39 Consult Physician Routine Consulting Provider: Logan Seth Consult Reason/Comments: elevated troponin, type II MO Do you want consulting provider notified?: Yes, Notify in am Consult Physician Routine Consulting Provider: Susanna Bates Consult Reason/Comments: Lower GI Bleed Do you want consulting provider notified?: Yes, Notify in am Primary care physician: John Douglas French Center Course: Discharge diagnoses; # Normocytic anemia, due to lower GI bleed #Generalized weakness #Elevated troponin #Stage III CKD # Essential hypertension #Diabetes mellitus, type 2 #Diabetic neuropathy #Coronary artery disease #Gout Hospital course; Patient is discharged to home in stable condition. Resume her normal home meds. She has to follow-up with her PCP. History of present illness; Patient is a 78-year-old female with CAD, diabetes mellitus, hyperlipidemia, hypertension, KAVITA who presents for generalized weakness. Patient states she has intermittent bleeding since around . She was seen Monday in the ED and was subsequently discharged. After discharge, bleeding progressed Monday morning and she states she had multiple episodes of large-volume bright red blood with clots per rectum, which is the last time she states she had bloody bowel movement. She also reports associated symptoms of worsening weakness, dizziness with fall, dull nonradiating chest pain and shortness of breath with exertion. She saw her PCP Dr. Bernstein who encouraged her to come to ER for further evaluation. She was on Plavix and aspirin daily until yesterday. She denies any episodes of syncope. Currently she is denying chest pain, abdominal pain, fevers, hematuria, vaginal bleeding, melena. In the ER she was treated with 2 units packed RBC, 1 L NS, D5.45 NS at 75 mL/h. Initial lab workup WBC 8.2, hemoglobin 6.6, hematocrit 18.9, MCV 95, platelets 201, APTT 18.7, sodium 137, potassium 3.8, chloride 110, bicarb 18, gap 9, BUN 39, creatinine 1.54, glucose 163, troponin 0.121, stool occult blood positive. EKG done in the ER independently interpreted showed heart rate of 78, no ST segment elevation or depression seen. Some new T wave inversion in V5 and aVL compared to prior EKG. Chest x-ray done independently interpreted in the ER showed generalized haziness throughout possible atelectasis. During hospital course patient given 2 units pRBC. She underwent EGD and colonoscopy, which revealed antral erosive gastritis, 1 cm ascending colon polyp, scattered diverticulosis and 1 cm distal stercoral rectal ulcer with no active bleeding. Elevated troponins with ACS ruled out. PHYSICAL EXAMINATION: Vitals reviewed GENERAL: No acute distress. Well developed, well nourished. HEENT: Pupils are round and equally reacting to light. EOMI. No scleral icterus. Normocephalic, atraumatic. No pharyngeal erythema. No thyromegaly. CARDIOVASCULAR: S1 and S2 present. No murmurs, rubs, or gallops. PULMONARY: Chest is clear to auscultation, no wheezing, rhonchi, or crackles. ABDOMEN: Soft, nontender, nondistended, normoactive bowel sounds. No palpable organomegaly. MUSCULOSKELETAL: Left foot deformity, right knee scar. EXTREMITIES: No apparent cyanosis, clubbing, or pedal edema. NEUROLOGICAL: The patient is alert and oriented x3, Gross neurological examination did not reveal any focal deficits. SKIN: No apparent rashes. Dictation was produced using [employer] dictation software. please excuse any grammatical, word or spelling errors. Patient Condition at Discharge: Stable Plan - Discharge Summary Discharge Rx Participant: No New Discharge Prescriptions: New allopurinoL [Zyloprim] 100 mg PO DAILY tab Continue INSULIN LISPRO (humaLOG) [humaLOG] 20 units SQ AC-BRKFST INSULIN LISPRO (humaLOG) [humaLOG] 35 units SQ AC-SUPPER Insulin Glargine,Hum.rec.anlog [Lantus Solostar Pen] 40 unit SQ HS Atorvastatin [Lipitor] 40 mg PO HS Furosemide [Lasix] 20 mg PO DAILY Semaglutide [Ozempic] 0.5 - 1 mg SQ TU INSULIN LISPRO (HumaLOG) [humaLOG] 30 units SQ AC-LUNCH Silver Sulfadiazine [SSD 1% Cream] 1 applic TOPICAL DAILY PRN PRN Reason: burn Empagliflozin [Jardiance] 10 mg PO DAILY Clopidogrel [Plavix] 75 mg PO DAILY ALPRAZolam [Xanax] 0.25 mg PO BID PRN PRN Reason: Anxiety Pregabalin [Lyrica] 100 mg PO TID Metoprolol Succinate (ER) [Toprol XL] 25 mg PO DAILY Ferrous Sulfate [Iron (65 MG Elemental)] 325 mg PO DAILY Discontinued allopurinoL 100 mg PO DAILY Discharge Medication List Atorvastatin [Lipitor] 40 mg PO HS 12/30/15 [History] INSULIN LISPRO (humaLOG) [humaLOG] 20 units SQ AC-BRKFST 12/30/15 [History] INSULIN LISPRO (humaLOG) [humaLOG] 35 units SQ AC-SUPPER 12/30/15 [History] Insulin Glargine,Hum.rec.anlog [Lantus Solostar Pen] 40 unit SQ HS 12/30/15 [History] Furosemide [Lasix] 20 mg PO DAILY 06/05/18 [History] Empagliflozin [Jardiance] 10 mg PO DAILY 09/05/23 [History] ALPRAZolam [Xanax] 0.25 mg PO BID PRN 03/05/24 [History] Clopidogrel [Plavix] 75 mg PO DAILY 03/05/24 [History] Ferrous Sulfate [Iron (65 MG Elemental)] 325 mg PO DAILY 03/05/24 [History] INSULIN LISPRO (HumaLOG) [humaLOG] 30 units SQ AC-LUNCH 03/05/24 [History] Metoprolol Succinate (ER) [Toprol XL] 25 mg PO DAILY 03/05/24 [History] Pregabalin [Lyrica] 100 mg PO TID 03/05/24 [History] Semaglutide [Ozempic] 0.5 - 1 mg SQ TU 03/05/24 [History] Silver Sulfadiazine [SSD 1% Cream] 1 applic TOPICAL DAILY PRN 03/05/24 [History] allopurinoL [Zyloprim] 100 mg PO DAILY tab 03/06/24 [Rx] Follow up Appointment(s)/Referral(s): Jeramy Lutz MD [Primary Care Provider] - 1-2 days Discharge Disposition: HOME SELF-CARE
[2024-03-06 16:20] VITALS: BP 118/67; PULSE 65; TEMP 98.5
[2024-03-06 16:28] LABS: Ferritin 66.8 ng/mL (10.0-291.0)
--- NOTE | 2024-03-12 17:20 | CDI ---
Documentation Clarification Form Date: 03/12/2024 05:08:10 PM From: Camila Chand Phone: Admit Date: 03/05/2024 08:01:00 AM Patient Name: Arabella Jackson Visit Number: [id number] Discharge Date: 03/06/2024 05:28:00 PM ATTENTION: The Clinical Documentation Specialists (CDI) and [facility] Coding Staff appreciate your assistance in clarifying documentation. Please respond to the clarification below the line at the bottom and electronically sign. The CDI & [facility] Coding staff will review the response and follow-up if needed. Please note: Queries are made part of the Legal Health Record. If you have any questions, please contact the author of this message via ITS. Doctor/Provider: Susanna Bates The final diagnosis of the pathology report states fragments of adenoma. Coding guidelines do not allow coding professionals to code based on pathology results; therefore, clarification is requested. History/risk factors: 78yo F, GIB w normocytic anemia, elevated troponin, CKD III, HTN, DMII w neuropathy, CAD, gout, stercoral rectal ulcer, HLD, KAVITA Clinical Indicators: multiple pale goldman soft tissue fragments ranging from 0.3 to 0.4 cm that are admixed with fecal material. Treatment: EGD and colonoscopy; Colon, Biopsy - Descendingpolyp Please clarify if you agree with the pathology report diagnosis of colonadenoma: [ ] Yes, Ascending Colon [ ] Yes, Descending Colon [ ] No [ ] Other (please specify) [ ] Unable to determine (Template Last Revised: May 2020) _LGI bleed happened becase of rectal ulcer and not polyps. Hope this clarified the question Bennie Bates MTDD
== END 2024-03-06 17:28 | disposition home or self-care (01) | DRG 393 ==
LOC: EC 20:13 → 3SCARD 22:42 → OBSVTOIN 03-05 08:01 → 3SCARD 03-05 16:00 → 4SSUR 03-06 16:03
PROVIDERS: ADMIT Hospitalist; ATTEND Hospitalist
PROC: 30233N1 Transfusion of Nonautologous Red Blood Cells into Peripheral Vein, Percutaneous Approach (ICD-10-PCS; 2024-03-05)
PROC: 0DJ08ZZ Inspection of Upper Intestinal Tract, Via Natural or Artificial Opening Endoscopic (ICD-10-PCS; principal; 2024-03-06 13:25)
PROC: 0DBM8ZZ Excision of Descending Colon, Via Natural or Artificial Opening Endoscopic (ICD-10-PCS; 2024-03-06 13:25)
DX: K62.6 Ulcer of anus and rectum (principal); I21.A1 Myocardial infarction type 2; K92.1 Melena; D62 Acute posthemorrhagic anemia; N18.30 Chronic kidney disease, stage 3 unspecified; E11.22 Type 2 diabetes mellitus with diabetic chronic kidney disease; E11.40 Type 2 diabetes mellitus with diabetic neuropathy, unspecified; J44.9 Chronic obstructive pulmonary disease, unspecified; Z79.4 Long term (current) use of insulin; I13.10 Hypertensive heart and chronic kidney disease without heart failure, with stage 1 through stage 4 chronic kidney disease, or unspecified chronic kidney disease; E66.9 Obesity, unspecified; Z68.33 Body mass index [BMI] 33.0-33.9, adult; K29.60 Other gastritis without bleeding; K63.5 Polyp of colon; K57.30 Diverticulosis of large intestine without perforation or abscess without bleeding; I25.10 Atherosclerotic heart disease of native coronary artery without angina pectoris; E78.5 Hyperlipidemia, unspecified; K64.9 Unspecified hemorrhoids; K59.00 Constipation, unspecified; G47.33 Obstructive sleep apnea (adult) (pediatric); M10.9 Gout, unspecified; Z79.02 Long term (current) use of antithrombotics/antiplatelets; Z79.82 Long term (current) use of aspirin; Z79.84 Long term (current) use of oral hypoglycemic drugs; Z79.85 Long-term (current) use of injectable non-insulin antidiabetic drugs; Z95.5 Presence of coronary angioplasty implant and graft; Z79.899 Other long term (current) drug therapy; Z95.1 Presence of aortocoronary bypass graft; Z91.81 History of falling
CPT/HCPCS: 36415; 36430; 43235; 45385; 71046; 80048; 80053; 82272; 82607; 82728; 82747; 83690; 83735; 84484; 85025; 85027; 85610; 85730; 86850; 86900; 86901; 86920; 88305; 96361; 96374; 96375; 99285

== ENCOUNTER → 2024-03-11 | Outpatient (CLI) | payer MEDICARE ==
[2024-03-11 13:03] LABS: Anisocytosis Slight; Basophils % (A) 1 %; Eosinophils # (A) 0.2 k/uL (0-0.7); Eosinophils % (A) 3 %; HCT 22.8 % (34.0-46.0); HGB 7.4 gm/dL (11.4-16.0); Hypochromasia Moderate; Lymphocytes # (A) 1.6 k/uL (1.0-4.8); Lymphocytes % (A) 26 %; MCH 32.2 pg (25.0-35.0); MCHC 32.4 g/dL (31.0-37.0); MCV 99.4 fL (80.0-100.0); Macrocytosis Slight; Mean Platelet Volume 8.6; Monocytes # (A) 0.4 k/uL (0-1.0); Monocytes % (A) 6 %; Neutrophils # (A) 3.7 k/uL (1.3-7.7); Neutrophils % (A) 61 %; Platelet Count 215 k/uL (150-450); Poikilocytosis Slight; RDW 17.6 % (11.5-15.5)
== END | disposition home or self-care (01) ==
LOC: LABWHC1 12:32
PROVIDERS: ATTEND Internal Medicine Geriatric Medicine
DX: K92.2 Gastrointestinal hemorrhage, unspecified (principal)
CPT/HCPCS: 36415; 85025

== ENCOUNTER 2024-06-19 13:28 | Inpatient (IN) | payer OTHER, MEDICARE ==
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
[2024-06-19 15:02] LABS: Basophils % (A) 0 %; Eosinophils # (A) 0.1 k/uL (0-0.7); Eosinophils % (A) 1 %; HCT 38.3 % (34.0-46.0); HGB 12.4 gm/dL (11.4-16.0); Lymphocytes # (A) 0.5 k/uL (1.0-4.8); Lymphocytes % (A) 5 %; MCH 30.3 pg (25.0-35.0); MCHC 32.4 g/dL (31.0-37.0); MCV 93.5 fL (80.0-100.0); Mean Platelet Volume 8.2; Monocytes # (A) 0.4 k/uL (0-1.0); Monocytes % (A) 3 %; Neutrophils # (A) 9.3 k/uL (1.3-7.7); Neutrophils % (A) 89 %; Platelet Count 203 k/uL (150-450); RDW 14.5 % (11.5-15.5); WBC 10.5 k/uL (3.8-10.6)
[2024-06-19 15:11] LABS: ALT 28 U/L (4-34); AST 27 U/L (14-36); African American GFR (CKD) 38 (>60 ml/min/1.73 sqM); Albumin 4.6 g/dL (3.5-5.0); Alkaline Phosphatase 92 U/L (38-126); Anion Gap 11 mmol/L; Blood Urea Nitrogen 35 mg/dL (7-17); Calcium 9.8 mg/dL (8.4-10.2); Carbon Dioxide 27 mmol/L (22-30); Chloride 96 mmol/L (98-107); Glucose 119 mg/dL (74-99); Non-African American GFR(CKD) 33 (>60 ml/min/1.73 sqM); Partial Thromboplastin Time 22.1 sec (22.0-30.0); Potassium 4.7 mmol/L (3.5-5.1); Prothrombin Time 10.7 sec (10.0-12.5); Sodium 134 mmol/L (137-145); Total Bilirubin 0.7 mg/dL (0.2-1.3); Total Protein 7.8 g/dL (6.3-8.2)
[2024-06-19] MEDS: MECLIZINE 12.5 MG TAB PO STA (15:11)
[2024-06-19] MEDS: SODIUM CHLORIDE 0.9% 500 ML 500 ML IV STA (15:12)
[2024-06-19 15:30] LABS: Appearance,Urine Cloudy (Clear); Bacteria,Urine Many /hpf; Bilirubin,Urine Negative (Negative); Blood,Urine Small (Negative); Color,Urine Colorless; Glucose,Urine (UA) Negative (Negative); Ketones,Urine Negative (Negative); Leukocyte Esterase,Urine Moderate (Negative); Mucus,Urine Rare /hpf; Nitrite,Urine Positive (Negative); PH, Urine 5.5 (5.0-8.0); Protein,Urine 1+ (Negative); RBC,Urine 24 /hpf (0-5); Specific Gravity,Urine 1.009 (1.001-1.035); Squamous Epithelial Cell,Urine 1 /hpf (0-4); Urobilinogen,Urine <2.0 mg/dL (<2.0); WBC,Urine 55 /hpf (0-5)
--- NOTE | 2024-06-19 15:30 | XR ---
EXAMINATION TYPE: XR chest 2V DATE OF EXAM: 06/19/2024 3:23 PM COMPARISON: Chest radiographs from 03/04/2024 TECHNIQUE: XR chest 2V Frontal and lateral views of the chest. CLINICAL INDICATION:Female, 78 years old with history of dizziness left chest pain; FINDINGS: Lungs/Pleura: There is no evidence of pleural effusion, focal consolidation, or pneumothorax. Pulmonary vascularity: Unremarkable. Heart/mediastinum: Cardiomediastinal silhouette is enlarged and stable. Musculoskeletal: Multiple level degenerative disc disease changes seen throughout the spine. Midline sternotomy wires are noted and stable. IMPRESSION: No acute cardiopulmonary disease/process. [facility], , 06/19/2024 3:28 PM
[2024-06-19] MEDS: CEFEPIME 2 GM in SODIUM CHLORIDE 0.9% 100 ML IVPB STA (17:10)
[2024-06-19] MEDS: ACETAMINOPHEN TAB 500 MG TAB PO STA (17:36)
[2024-06-19 17:41] LABS: Glucose,Whole Blood 105 mg/dL (70-110)
[2024-06-19] MEDS ORDERED: NALOXONE 0.4 MG/ML 1 ML VIAL IV PRN (18:22)
[2024-06-19] MEDS ORDERED: ALPRAZolam 0.25 MG TAB PO PRN (18:22)
[2024-06-19] MEDS ORDERED: MORPHINE SULFATE 4 MG/ML SYRINGE IV PRN (18:22)
[2024-06-19] MEDS ORDERED: VANCOMYCIN IV PER PHARMACY 1 EACH MISC MISCELLANE PRN (18:24)
[2024-06-19] MEDS: SODIUM CHLORIDE 0.9% 1,000 ML IV SCH (18:46)
[2024-06-19 18:53] LABS: Glucose,Whole Blood 145 mg/dL (70-110)
--- NOTE | 2024-06-19 19:26 | CT ---
EXAMINATION TYPE: CT brain wo con DATE OF EXAM: 06/19/2024 COMPARISON: CT brain earlier today CLINICAL INDICATION: Female, 78 years old with history of increased lethargy, recent head trauma, Inc reased lethargy, recent head trauma. TECHNIQUE: CT scan of the head is performed without contrast. CT DLP: 1116.4 mGycm. Automated Exposure Control for Dose Reduction was Utilized. FINDINGS: There is no acute intracranial hemorrhage or midline shift identified. There is mild-to-m oderate diffuse ventricular and sulcal prominence redemonstrated. There is mild to moderate low-atte nuation in the periventricular white matter redemonstrated. Persistent 1.1 cm hyperdense lesion right frontal lobe anteriorly image 38 suspicious for meningioma. This can be confirmed with follow-up MRI . There is at least partial empty sella morphology redemonstrated. Right-sided aphakia redemonstrated . The visualized sinuses are clear. IMPRESSION: No acute intracranial hemorrhage or midline shift. No significant change from CT study e maria guadalupe today.. [facility], , 06/19/2024 7:24 PM
[2024-06-19] MEDS: VANCOMYCIN 1,500 MG in SODIUM CHLORIDE 0.9% 500 ML 500 ML IVPB ONE (19:39)
[2024-06-19] MEDS: ATORVASTATIN 40 MG TAB PO SCH (21:58)
[2024-06-19] MEDS: ASPIRIN 81 MG PO SCH (21:58)
[2024-06-19] MEDS: allopurinoL 100 MG TAB PO SCH (21:58)
[2024-06-19] MEDS: DOCUSATE 100 MG CAP PO SCH (21:58)
[2024-06-19] MEDS: MELATONIN 3 MG TABLET PO SCH (21:59)
[2024-06-19] MEDS: SENNOSIDES 8.6 MG TAB PO SCH (21:59)
[2024-06-19] MEDS: FAMOTIDINE 20 MG TAB PO SCH (21:59)
[2024-06-19] MEDS: PREGABALIN 75 MG CAP PO SCH (22:00)
[2024-06-19] MEDS: ONDANSETRON 4 MG/2 ML VIAL IVP PRN (22:10)
[2024-06-19 22:53] LABS: Glucose,Whole Blood 126 mg/dL (70-110)
[2024-06-19] MEDS: INSULIN GLARGINE (LANTUS) 100 UNIT/ML SYR SQ SCH (22:54)
[2024-06-19 23:25] LABS: Influenza A Not Detected (Not Detectd); Influenza B Not Detected (Not Detectd); RSV Not Detected (Not Detectd)
[2024-06-20] MEDS: ACETAMINOPHEN TAB 325 MG TAB PO PRN (00:01)
[2024-06-20] MEDS: traMADol 50 MG TAB PO PRN (01:29)
[2024-06-20 05:52] LABS: Glucose,Whole Blood 163 mg/dL (70-110)
--- NOTE | 2024-06-20 06:55 | US ---
EXAMINATION TYPE: US renals and bladder DATE OF EXAM: 06/19/2024 COMPARISON: CT 03/02/24, ultrasound bladder 08/15/2019, abdominal ultrasound 06/06/2018 CLINICAL INDICATION: Female, 78 years old with history of fever uti; fever, uti, patient out of it TECHNIQUE: Grayscale imaging of the bilateral kidneys and urinary bladder: FINDINGS: EXAM MEASUREMENTS: Right Kidney: 12.0 x 5.8 x 5.1 cm Left Kidney: 9.5 x 6.9 x 6.7 cm patient unable to roll rld/ lld, limited due to body habitus Right Kidney: possible 9mm anechoic area seen in the inferior pole. upper limits of normal Left Kidney: difficult to fully evaluate due to overlying gas and body habitus Bladder: wnl Bilateral Jets seen: yes Right kidney demonstrates no hydronephrosis, shadowing calculus or solid renal mass. Suggested small subcentimeter cortical cysts in the right kidney. Limited evaluation of the left kidney due to overly ing bowel gas and body habitus. No gross evidence for hydronephrosis, shadowing calculus, or solid ma ss. Cortical medullary differentiation appears preserved bilaterally. The urinary bladder is anechoic with the bilateral ureteral jets identified. No gross evidence of perinephric fluid collection. IMPRESSION: No hydronephrosis or nephrolithiasis. [facility], , 06/20/2024 6:52 AM
[2024-06-20 07:01] LABS: African American GFR (CKD) 29 (>60 ml/min/1.73 sqM); Anion Gap 9 mmol/L; Blood Urea Nitrogen 42 mg/dL (7-17); Calcium 8.8 mg/dL (8.4-10.2); Carbon Dioxide 23 mmol/L (22-30); Chloride 100 mmol/L (98-107); Glucose 149 mg/dL (74-99); Non-African American GFR(CKD) 25 (>60 ml/min/1.73 sqM); Sodium 132 mmol/L (137-145)
[2024-06-20] MEDS: FERROUS SULFATE 325 MG TAB PO SCH (08:16)
[2024-06-20] MEDS: FAMOTIDINE 20 MG TAB PO SCH (08:17)
[2024-06-20] MEDS: CLOPIDOGREL 75 MG TAB PO SCH (08:17)
[2024-06-20] MEDS: INSULIN LISPRO (HumaLOG) 100 UNIT/ML 10 mL VL SQ SCH ×3 (08:17→17:53)
[2024-06-20] MEDS: METOPROLOL SUCCINATE (ER) 25 MG TAB.ER.24H PO SCH (08:22)
[2024-06-20 08:42] LABS: Basophils # (A) 0.02 X 10*3/uL (0.00-0.10); Basophils % (A) 0.2 %; Eosinophils # (A) 0 X 10*3/uL (0.04-0.35); Eosinophils % (A) 0 %; HCT 33.4 % (37.2-46.3); HGB 10.4 g/dL (12.0-15.0); Lymphocytes # (A) 0.53 X 10*3/uL (0.90-5.00); Lymphocytes % (A) 6.1 %; MCH 30.1 pg (27.0-32.0); MCHC 31.1 g/dL (32.0-37.0); MCV 96.5 FL (80.0-97.0); Mean Platelet Volume 11.5 FL (9.5-12.2); Monocytes # (A) 0.46 X 10*3/uL (0.20-1.00); Monocytes % (A) 5.3 %; NRBC Per 100 WBC 0 X 10*3/uL (0.00-0.01); Neutrophils # (A) 7.64 X 10*3/uL (1.80-7.70); Neutrophils % (A) 87.9 %; Platelet Count 171 X 10*3/uL (140-440); RBC 3.46 X 10*6/uL (4.10-5.20); RDW 14.7 % (11.5-14.5); WBC 8.69 X 10*3/uL (4.50-10.00)
[2024-06-20 12:08] LABS: Glucose,Whole Blood 103 mg/dL (70-110)
[2024-06-20] MEDS: CEFEPIME 1 GM in SODIUM CHLORIDE 0.9% 50 ML IVPB SCH (12:45)
[2024-06-20 14:16] LABS: Glucose,Whole Blood 193 mg/dL (70-110)
[2024-06-20] MEDS: SODIUM CHLORIDE 0.9% 500 ML 500 ML IV ONE (14:40)
[2024-06-20] MEDS: MIDODRINE 5 MG TAB PO ONE (14:59)
[2024-06-20] MEDS ORDERED: VANCOMYCIN 1,500 MG in SODIUM CHLORIDE 0.9% 500 ML 500 ML IVPB SCH (15:00)
[2024-06-20 15:48] LABS: Lactic Acid, Venous 1.2 mmol/L (0.7-2.0)
[2024-06-20 17:20] LABS: Glucose,Whole Blood 143 mg/dL (70-110)
[2024-06-20 19:47] LABS: Glucose,Whole Blood 117 mg/dL (70-110)
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
[2024-06-21 05:29] LABS: Glucose,Whole Blood 125 mg/dL (70-110)
[2024-06-21 08:21] LABS: Basophils # (A) 0.03 X 10*3/uL (0.00-0.10); Basophils % (A) 0.5 %; Eosinophils # (A) 0.09 X 10*3/uL (0.04-0.35); Eosinophils % (A) 1.4 %; HCT 31.9 % (37.2-46.3); HGB 9.8 g/dL (12.0-15.0); Lymphocytes # (A) 0.93 X 10*3/uL (0.90-5.00); Lymphocytes % (A) 14.9 %; MCHC 30.7 g/dL (32.0-37.0); MCV 97.6 FL (80.0-97.0); Mean Platelet Volume 11.4 FL (9.5-12.2); Monocytes # (A) 0.89 X 10*3/uL (0.20-1.00); Monocytes % (A) 14.2 %; NRBC Per 100 WBC 0 X 10*3/uL (0.00-0.01); Neutrophils # (A) 4.29 X 10*3/uL (1.80-7.70); Neutrophils % (A) 68.7 %; Platelet Count 164 X 10*3/uL (140-440); RBC 3.27 X 10*6/uL (4.10-5.20); RDW 14.8 % (11.5-14.5); WBC 6.25 X 10*3/uL (4.50-10.00)
[2024-06-21 09:19] LABS: BUN/Creat Ratio 23.31 Ratio (12.00-20.00); Blood Urea Nitrogen 37.3 mg/dL (9.0-27.0); Calcium 8.5 mg/dL (8.7-10.3); Carbon Dioxide 21.2 mmol/L (21.6-31.8); Chloride 103 mmol/L (96-109); Glucose 110 mg/dL (70-110); Potassium 4.3 mmol/L (3.5-5.5); Sodium 137 mmol/L (135-145)
[2024-06-21 12:31] LABS: Glucose,Whole Blood 173 mg/dL (70-110)
[2024-06-21] MEDS: LORATADINE 10 MG TAB PO SCH (14:48)
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
[2024-06-21 17:15] LABS: Glucose,Whole Blood 161 mg/dL (70-110)
[2024-06-21 20:14] LABS: Glucose,Whole Blood 141 mg/dL (70-110)
[2024-06-22] MEDS: CEFEPIME 2 GM in SODIUM CHLORIDE 0.9% 100 ML IVPB SCH (00:06)
[2024-06-22 05:59] LABS: Glucose,Whole Blood 127 mg/dL (70-110)
[2024-06-22 09:18] LABS: Basophils # (A) 0.04 X 10*3/uL (0.00-0.10); Basophils % (A) 0.9 %; Eosinophils # (A) 0.22 X 10*3/uL (0.04-0.35); Eosinophils % (A) 5.1 %; HCT 32.9 % (37.2-46.3); HGB 10.1 g/dL (12.0-15.0); Lymphocytes # (A) 1.07 X 10*3/uL (0.90-5.00); Lymphocytes % (A) 24.9 %; MCH 29.9 pg (27.0-32.0); MCHC 30.7 g/dL (32.0-37.0); MCV 97.3 FL (80.0-97.0); Mean Platelet Volume 11.3 FL (9.5-12.2); Monocytes # (A) 0.85 X 10*3/uL (0.20-1.00); Monocytes % (A) 19.8 %; NRBC Per 100 WBC 0 X 10*3/uL (0.00-0.01); Neutrophils % (A) 49.1 %; Platelet Count 147 X 10*3/uL (140-440); RBC 3.38 X 10*6/uL (4.10-5.20); RDW 14.5 % (11.5-14.5); WBC 4.29 X 10*3/uL (4.50-10.00)
[2024-06-22 09:29] LABS: BUN/Creat Ratio 26.83 Ratio (12.00-20.00); Blood Urea Nitrogen 32.2 mg/dL (9.0-27.0); Carbon Dioxide 23.5 mmol/L (21.6-31.8); Chloride 108 mmol/L (96-109); Glucose 124 mg/dL (70-110); Potassium 4.6 mmol/L (3.5-5.5); Sodium 141 mmol/L (135-145)
[2024-06-22] MEDS ORDERED: CEFEPIME 2 GM in SODIUM CHLORIDE 0.9% 100 ML IVPB SCH (12:00)
[2024-06-22 12:24] LABS: Glucose,Whole Blood 171 mg/dL (70-110)
[2024-06-22] MEDS: ERTAPENEM 1 GM in SODIUM CHLORIDE 0.9% 50 ML IVPB SCH (12:43)
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
[2024-06-22 16:21] LABS: Glucose,Whole Blood 100 mg/dL (70-110)
[2024-06-22 20:19] LABS: Glucose,Whole Blood 162 mg/dL (70-110)
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
[2024-06-23] MEDS: ALPRAZolam 0.25 MG TAB PO PRN (05:22)
[2024-06-23 05:50] LABS: Glucose,Whole Blood 98 mg/dL (70-110)
[2024-06-23 07:40] LABS: African American GFR (CKD) 54 (>60 ml/min/1.73 sqM); Anion Gap 8 mmol/L; Blood Urea Nitrogen 26 mg/dL (7-17); Calcium 9.3 mg/dL (8.4-10.2); Carbon Dioxide 25 mmol/L (22-30); Chloride 104 mmol/L (98-107); Glucose 98 mg/dL (74-99); Non-African American GFR(CKD) 46 (>60 ml/min/1.73 sqM); Potassium 4.5 mmol/L (3.5-5.1); Sodium 137 mmol/L (137-145)
[2024-06-23 09:52] LABS: Basophils # (A) 0.04 X 10*3/uL (0.00-0.10); Basophils % (A) 0.8 %; Eosinophils # (A) 0.19 X 10*3/uL (0.04-0.35); Eosinophils % (A) 3.6 %; HCT 32.3 % (37.2-46.3); HGB 10.2 g/dL (12.0-15.0); Lymphocytes # (A) 1.15 X 10*3/uL (0.90-5.00); Lymphocytes % (A) 21.6 %; MCH 30.6 pg (27.0-32.0); MCHC 31.6 g/dL (32.0-37.0); Mean Platelet Volume 11.5 FL (9.5-12.2); Monocytes # (A) 0.76 X 10*3/uL (0.20-1.00); Monocytes % (A) 14.3 %; NRBC Per 100 WBC 0 X 10*3/uL (0.00-0.01); Neutrophils # (A) 3.16 X 10*3/uL (1.80-7.70); Neutrophils % (A) 59.3 %; Platelet Count 171 X 10*3/uL (140-440); RBC 3.33 X 10*6/uL (4.10-5.20); RDW 14.2 % (11.5-14.5); WBC 5.32 X 10*3/uL (4.50-10.00)
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
[2024-06-23 12:46] LABS: Glucose,Whole Blood 150 mg/dL (70-110)
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
[2024-06-23] MEDS: BUTALB/APAP/CAFF 50-325-40MG TAB PO PRN (14:31)
[2024-06-23 17:34] LABS: Glucose,Whole Blood 115 mg/dL (70-110)
[2024-06-23 20:17] LABS: Glucose,Whole Blood 106 mg/dL (70-110)
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
[2024-06-24 06:11] LABS: Glucose,Whole Blood 124 mg/dL (70-110)
[2024-06-24 09:18] LABS: BUN/Creat Ratio 18.55 Ratio (12.00-20.00); Blood Urea Nitrogen 20.4 mg/dL (9.0-27.0); Calcium 9.4 mg/dL (8.7-10.3); Carbon Dioxide 26.1 mmol/L (21.6-31.8); Chloride 103 mmol/L (96-109); Glucose 99 mg/dL (70-110); Potassium 4.5 mmol/L (3.5-5.5); Sodium 139 mmol/L (135-145)
[2024-06-24] MEDS: NON FORMULARY DRUG (Semaglutide [Ozempic] 1 MG/0.75 ML Each) SQ SCH (09:47)
[2024-06-24 10:15] LABS: Basophils # (A) 0.05 X 10*3/uL (0.00-0.10); Basophils % (A) 1.1 %; Eosinophils # (A) 0.21 X 10*3/uL (0.04-0.35); Eosinophils % (A) 4.5 %; HCT 34.8 % (37.2-46.3); HGB 10.8 g/dL (12.0-15.0); Lymphocytes # (A) 1.59 X 10*3/uL (0.90-5.00); MCV 96.7 FL (80.0-97.0); Mean Platelet Volume 11.2 FL (9.5-12.2); Monocytes # (A) 0.63 X 10*3/uL (0.20-1.00); Monocytes % (A) 13.5 %; NRBC Per 100 WBC 0 X 10*3/uL (0.00-0.01); Neutrophils # (A) 2.14 X 10*3/uL (1.80-7.70); Neutrophils % (A) 45.6 %; Platelet Count 187 X 10*3/uL (140-440); WBC 4.68 X 10*3/uL (4.50-10.00)
[2024-06-24 12:02] LABS: Glucose,Whole Blood 113 mg/dL (70-110)
[2024-06-24] MEDS: FLUTICASONE NASAL 50MCG/SPRAY 16GM BTL EA NOSTRIL SCH (12:22)
[2024-06-24] MEDS: MULTIVITAMINS, THERA 1 EACH TAB PO SCH (14:00)
[2024-06-24] MEDS: PANTOPRAZOLE 40 MG TABLET PO SCH (14:00)
[2024-06-24] MEDS: THIAMINE 100 MG TAB PO SCH (14:00)
[2024-06-24] MEDS: PSEUDOEPHEDRINE 30 MG TAB PO SCH (14:06)
--- NOTE | 2024-06-24 15:01 | PN ---
PROGRESS NOTE DATE OF SERVICE: 06/24/2024 SUBJECTIVE: This is a 78-year-old woman who was admitted with ESBL E coli and sepsis, is complaining of some headache. She is also complaining of deep chest discomfort. Also, there is no history of fever, rigors, chills. Multiple consultants are following the patient closely. White count is normal. The CRP, procalcitonin, and ESR are elevated. PAST MEDICAL HISTORY: Reviewed and include CAD, diabetes mellitus type 2, HOME MEDICATIONS: Reviewed. PHYSICAL EXAMINATION: VITAL SIGNS: Pulse is 68, blood pressure 130/70, respiratory rate 16. HEENT: Conjunctivae normal. CARDIOVASCULAR: S1, S2. ABDOMEN: Soft. NERVOUS SYSTEM: Nonfocal. LABORATORY DATA: Hemoglobin 10.8, and rest of the labs are noted. ASSESSMENT: 1. Extended spectrum beta-lactamase Escherichia coli urinary tract infection and sepsis present on admission. 2. Headache for evaluation. 3. Acute cystitis. 4. Chest pains. 5. Acute kidney injury. 6. Diabetes mellitus, type 2. 7. Hypertension. 8. Hyperlipidemia. 9. History of coronary artery disease. 10.History of hyperuricemia and gout. 11.History of sleep apnea, on CPAP. 12.History of nephrolithiasis. 13.History of coronary artery disease stent. RECOMMENDATIONS AND DISCUSSION: This 78-year-old woman presented with multiple complex medical issues. We will monitor the patient closely. Continue the current management and continue the antibiotics. Infectious Disease recommended a PICC line and outpatient antibiotics. We will continue to monitor. The most recent blood cultures negative. I would recommend a repeat UA to evaluate and a repeat Procal levels also. See orders for details. Further recommendations to follow. Prognosis guarded. Monitor blood sugars closely. MMODL / IJN: [id number] / CAMMIE
[2024-06-24 17:11] LABS: Glucose,Whole Blood 123 mg/dL (70-110)
[2024-06-24 17:41] LABS: Appearance,Urine Clear (Clear); Bilirubin,Urine Negative (Negative); Blood,Urine Negative (Negative); Color,Urine Colorless; Glucose,Urine (UA) Negative (Negative); Ketones,Urine Negative (Negative); Leukocyte Esterase,Urine Negative (Negative); Nitrite,Urine Negative (Negative); PH, Urine 5.5 (5.0-8.0); Protein,Urine Negative (Negative); Specific Gravity,Urine 1.007 (1.001-1.035); Urobilinogen,Urine <2.0 mg/dL (<2.0)
[2024-06-24 20:19] LABS: Glucose,Whole Blood 93 mg/dL (70-110)
[2024-06-24] MEDS: polyethylene glycoL 3350 17 GM POWD.PACK PO SCH (20:59)
[2024-06-24] MEDS: HEPARIN SODIUM,PORCINE 5,000 UNIT/ML 1 ML VIAL SQ SCH (21:06)
[2024-06-24] MEDS: Acetaminophen-Codeine 300-30mg TAB PO PRN (23:40)
[2024-06-25 06:03] LABS: Glucose,Whole Blood 107 mg/dL (70-110)
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
[2024-06-25 12:25] LABS: African American GFR (CKD) 46 (>60 ml/min/1.73 sqM); Anion Gap 7 mmol/L; Blood Urea Nitrogen 26 mg/dL (7-17); Calcium 9.7 mg/dL (8.4-10.2); Carbon Dioxide 31 mmol/L (22-30); Chloride 99 mmol/L (98-107); Glucose 125 mg/dL (74-99); Magnesium 1.8 mg/dL (1.6-2.3); Non-African American GFR(CKD) 40 (>60 ml/min/1.73 sqM); Potassium 4.4 mmol/L (3.5-5.1); Sodium 137 mmol/L (137-145)
[2024-06-25 12:28] LABS: Glucose,Whole Blood 130 mg/dL (70-110)
[2024-06-25 12:56] LABS: Basophils % (A) 1 %; Eosinophils # (A) 0.1 k/uL (0-0.7); Eosinophils % (A) 3 %; HCT 37.8 % (34.0-46.0); HGB 12.2 gm/dL (11.4-16.0); Hypochromasia Slight; Lymphocytes # (A) 1.3 k/uL (1.0-4.8); Lymphocytes % (A) 24 %; MCH 30.7 pg (25.0-35.0); MCHC 32.2 g/dL (31.0-37.0); MCV 95.3 fL (80.0-100.0); Mean Platelet Volume 8.5; Monocytes # (A) 0.4 k/uL (0-1.0); Monocytes % (A) 7 %; Neutrophils # (A) 3.4 k/uL (1.3-7.7); Neutrophils % (A) 63 %; Platelet Count 206 k/uL (150-450); RBC 3.97 m/uL (3.80-5.40); RDW 14.1 % (11.5-15.5); WBC 5.4 k/uL (3.8-10.6)
[2024-06-25] MEDS: FOLIC ACID 1 MG TAB PO SCH (13:24)
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
[2024-06-25] MEDS: IOPAMIDOL CONTRAST (ORAL USE) VIAL PO PRN (17:07)
[2024-06-25 17:11] LABS: Glucose,Whole Blood 151 mg/dL (70-110)
--- NOTE | 2024-06-25 19:12 | CT ---
EXAMINATION TYPE: CT abdomen pelvis wo con DATE OF EXAM: 06/25/2024 6:53 PM COMPARISON: 03/02/2024. CLINICAL INDICATION: Female, 78 years old with history of resistant uti; Resistant UTI TECHNIQUE: Axial CT abdomen pelvis wo con;Sagittal and coronal reformats were created on a separate workstation. Contrast used: mL of , (none if empty) Oral contrast used: with Oral Contrast (none if empty) CT DLP: 1122.1 mGycm, Automated exposure control for dose reduction was used. FINDINGS: LOWER CHEST: Bilateral breast implants partially visualized, possible intracapsular rupture on the ri ght. Severe coronary artery atherosclerosis. ABDOMEN LIVER: Unremarkable GALLBLADDER AND BILE DUCTS: Layering increased densities within the lumen consistent with gallstones are present. PANCREAS: Unremarkable. SPLEEN: Unremarkable. ADRENAL GLANDS: Unremarkable. KIDNEYS AND URETERS: No evidence of hydronephrosis or obstructing renal calculus. The ureters are unr emarkable. There are bilateral hyperdense renal cysts. Nonobstructing left 2 mm calculus. PELVIS BLADDER: No evidence for wall thickening or mass given limitations of exam. REPRODUCTIVE: The uterus is surgically absent. ABDOMEN & PELVIS STOMACH AND BOWEL: No evidence of bowel obstruction. The appendix is normal. PERITONEUM/RETROPERITONEUM: No evidence of pneumoperitoneum or free fluid. VASCULATURE: Mild atherosclerotic calcifications are present throughout the abdominal aorta and its b ranches. No evidence of aortic aneurysm. MUSCULOSKELETAL: No acute osseous abnormalities. Moderate disc degeneration changes are present throu ghout the thoracolumbar spine. LYMPH NODES: No gross evidence for lymphadenopathy. SOFT TISSUE/ABDOMINAL WALL: Unremarkable IMPRESSION: 1. No evidence for acute abdominal process. 2. Bilateral breast implants partially visualized, possible intracapsular rupture on the right. 3. Left nonobstructing renal calculi. 4. Bilateral hyperdense renal cysts. Further evaluation MRI renal mass protocol is recommended for c omplete characterization and to rule out renal cell carcinoma.. 5. Cholelithiasis. 6. Severe coronary artery atherosclerosis. [facility], , 06/25/2024 7:10 PM
[2024-06-25 20:38] LABS: Glucose,Whole Blood 109 mg/dL (70-110)
--- NOTE | 2024-06-25 23:19 | PN ---
PROGRESS NOTE DATE OF SERVICE: 06/25/2024 SUBJECTIVE: This is a 78-year-old woman, who is admitted with ESBL E coli sepsis, also complaining of some headache. The patient is on broad-spectrum IV antibiotics. The blood culture is negative. Recent ESBL E coli with ESBL Klebsiella. Otherwise, the patient is being closely monitored at this time. There is no history of any fever, rigors, or chills. Multiple consultants are following the patient. Creatinine is 1.31. PAST MEDICAL HISTORY: Reviewed. REVIEW OF SYSTEMS: Fourteen-point review of systems negative except as mentioned earlier. PHYSICAL EXAMINATION: VITAL SIGNS: Pulse is 70, blood pressure n, respirations 16. CHEST: Clear to auscultation. CARDIOVASCULAR: S1, S2. ABDOMEN: Soft. NERVOUS SYSTEM: Nonfocal. LABORATORY DATA: WBC 5.4, ESR is 54. Creatinine is 1.31. Rest of the labs are noted. ASSESSMENT: 1. Extended spectrum beta lactamase Klebsiella urinary tract infection as well as sepsis present on admission. 2. Headache, for evaluation. 3. Acute cystitis. 4. Chest pains. 5. Chronic kidney disease possibly with acute kidney injury. 6. Diabetes mellitus, type 2. 7. Hypertension. 8. Multiple complex medical issues. RECOMMENDATIONS AND DISCUSSION: This is a 78-year-old woman, who presented with multiple complex medical issues. We will monitor the patient closely. Continue with antibiotics. Monitor creatinine function closely. I would also recommend CT scan of the abdomen and pelvis to rule out the possibility of pyelonephritis or any other urology tract abnormalities. I would also recommend 2D echo with Doppler to complete the workup as well. The troponin has been normal and the EKG did not show any acute changes either. As mentioned earlier, PICC line has been inserted. We will continue to monitor. Prognosis is guarded. MMODL / IJN: [id number] / [place]
[2024-06-26 03:55] VITALS: RESP 16
[2024-06-26 06:07] LABS: Glucose,Whole Blood 90 mg/dL (70-110)
[2024-06-26 08:06] VITALS: BP 120/75; PULSE 73; TEMP 98.1
[2024-06-26 08:25] LABS: Basophils # (A) 0.07 X 10*3/uL (0.00-0.10); Basophils % (A) 1.1 %; Eosinophils # (A) 0.19 X 10*3/uL (0.04-0.35); Eosinophils % (A) 3.1 %; HCT 33.6 % (37.2-46.3); HGB 10.9 g/dL (12.0-15.0); Lymphocytes # (A) 1.91 X 10*3/uL (0.90-5.00); Lymphocytes % (A) 31.2 %; MCHC 32.4 g/dL (32.0-37.0); MCV 95.5 FL (80.0-97.0); Monocytes # (A) 0.73 X 10*3/uL (0.20-1.00); Monocytes % (A) 11.9 %; NRBC Per 100 WBC 0 X 10*3/uL (0.00-0.01); Neutrophils # (A) 3.14 X 10*3/uL (1.80-7.70); Neutrophils % (A) 51.2 %; Platelet Count 218 X 10*3/uL (140-440); RBC 3.52 X 10*6/uL (4.10-5.20); RDW 14.3 % (11.5-14.5); WBC 6.13 X 10*3/uL (4.50-10.00)
[2024-06-26 08:31] LABS: BUN/Creat Ratio 20.92 Ratio (12.00-20.00); Blood Urea Nitrogen 25.1 mg/dL (9.0-27.0); Glucose 80 mg/dL (70-110)
[2024-06-26 08:32] LABS: Calcium 9.4 mg/dL (8.7-10.3); Carbon Dioxide 27.2 mmol/L (21.6-31.8); Chloride 104 mmol/L (96-109); Potassium 4.4 mmol/L (3.5-5.5); Sodium 142 mmol/L (135-145)
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
--- NOTE | 2024-06-26 11:44 | CA ---
Transthoracic Echo Report Name: Arabella Jackson Age: 78 Gender: F : 1945 Exam Date: 06/26/2024 08:46 Exam Location: [facility] Ht (in): 67 Wt (lb): 220 Ordering Physician: Milla Horton Attending/Referring Phys: Support Specialist Julieta Duron RDCS Procedure CPT: Indications: Chest Pain Cardiac Hx: Technical Quality: Good Contrast 1: Total Dose (mL): Contrast 2: Total Dose (mL): MEASUREMENTS (Male / Female) Normal Values 2D ECHO LV Diastolic Diameter PLAX 5.0 cm 4.2 - 5.9 / 3.9 - 5.3 cm LV Systolic Diameter PLAX 3.1 cm IVS Diastolic Thickness 1.2 cm 0.6 - 1.0 / 0.6 - 0.9 cm LVPW Diastolic Thickness 1.3 cm 0.6 - 1.0 / 0.6 - 0.9 cm LV Relative Wall Thickness 0.5 RV Internal Dim ED PLAX 3.2 cm LA Systolic Diameter LX 3.6 cm 3.0 - 4.0 / 2.7 - 3.8 cm LV Diastolic Volume MOD BP 88.3 cm??? 67 - 155 / 56 - 104 cm??? LV Systolic Volume MOD BP 49.0 cm??? 22 - 58 / 19 - 49 cm??? LV Ejection Fraction MOD BP 44.5 % >= 55 % LV Cardiac Index MOD BP 1067.3 cm???/min???m??? LV Diastolic Volume MOD 4C 114.4 cm??? LV Systolic Volume MOD 4C 51.1 cm??? LV Ejection Fraction MOD 4C 55.4 % LV Cardiac Index MOD 4C 1720.4 cm???/min???m??? LV Diastolic Length 4C 7.7 cm LV Systolic Length 4C 7.0 cm LV Diastolic Volume MOD 2C 63.6 cm??? LV Systolic Volume MOD 2C 41.1 cm??? LV Ejection Fraction MOD 2C 35.3 % LV Cardiac Index MOD 2C 609.3 cm???/min???m??? LV Diastolic Length 2C 7.1 cm LV Systolic Length 2C 6.1 cm M-MODE Aortic Root Diameter MM 3.2 cm DOPPLER AV Peak Velocity 133.6 cm/s AV Peak Gradient 7.1 mmHg TR Peak Velocity 219.8 cm/s TR Peak Gradient 19.3 mmHg Right Ventricular Systolic Press 29.3 mmHg FINDINGS Left Ventricle Left ventricular ejection fraction is estimated at 55-60 %. Left ventricular cavity size normal. Mildly increased septal wall thickness. Moderately increased posterior wall thickness. Right Ventricle Normal right ventricular size. Right ventricular systolic pressure within normal limits. Right Atrium Normal right atrial size. No right atrial thrombus or mass seen. Left Atrium Normal left atrial size. No left atrial thrombus or mass present. Mitral Valve Structurally normal mitral valve. No mitral stenosis, regurgitation or prolapse. Aortic Valve Trileaflet aortic valve. No aortic valve stenosis or regurgitation. Aortic valve sclerosis. Tricuspid Valve Structurally normal tricuspid valve. Mild tricuspid regurgitation. Pulmonic Valve Pulmonic valve not well visualized. No pulmonic regurgitation. Pericardium No pericardial effusion. Aorta Normal size aortic root and proximal ascending aorta. CONCLUSIONS Indication: Chest pain, known CAD LVH with preserved systolic function Previewed by: Dr. Manny Huffman MD (Electronically Signed) Final Date: 26 June 2024 11:43
[2024-06-26 12:30] VITALS: BMI 34.4
[2024-06-26 12:31] LABS: Glucose,Whole Blood 122 mg/dL (70-110)
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
== END 2024-06-26 14:35 | disposition home health service (06) | DRG 872 ==
LOC: EC 13:28 → 6NMEDSUR 18:22 → OBSVTOIN 18:23 → 6NMEDSUR 20:56
PROVIDERS: ADMIT Internal Medicine; ATTEND Internal Medicine
DX: A41.51 Sepsis due to Escherichia coli [E. coli] (principal); N17.9 Acute kidney failure, unspecified; E11.22 Type 2 diabetes mellitus with diabetic chronic kidney disease; I12.9 Hypertensive chronic kidney disease with stage 1 through stage 4 chronic kidney disease, or unspecified chronic kidney disease; N18.9 Chronic kidney disease, unspecified; N30.00 Acute cystitis without hematuria; Z16.29 Resistance to other single specified antibiotic; Z16.12 Extended spectrum beta lactamase (ESBL) resistance; R65.20 Severe sepsis without septic shock; E11.40 Type 2 diabetes mellitus with diabetic neuropathy, unspecified; Z79.4 Long term (current) use of insulin; M19.90 Unspecified osteoarthritis, unspecified site; M25.512 Pain in left shoulder; V89.2XXA Person injured in unspecified motor-vehicle accident, traffic, initial encounter; G47.30 Sleep apnea, unspecified; I95.9 Hypotension, unspecified; E78.5 Hyperlipidemia, unspecified; I25.10 Atherosclerotic heart disease of native coronary artery without angina pectoris; B96.1 Klebsiella pneumoniae [K. pneumoniae] as the cause of diseases classified elsewhere; M10.9 Gout, unspecified; Z20.822 Contact with and (suspected) exposure to COVID-19; Z79.02 Long term (current) use of antithrombotics/antiplatelets; Z79.899 Other long term (current) drug therapy; Z87.440 Personal history of urinary (tract) infections; Z87.442 Personal history of urinary calculi; Z88.0 Allergy status to penicillin; Z95.5 Presence of coronary angioplasty implant and graft
CPT/HCPCS: 36410; 36415; 70450; 71046; 72125; 74176; 76770; 76937; 80048; 80053; 81001; 81003; 82140; 83605; 83735; 84145; 84484; 85025; 85610; 85652; 85730; 86140; 87040; 87077; 87086; 87186; 87636; 93005; 93306; 96361; 96365; 96366; 96367; 96375; 99291

== ENCOUNTER 2024-09-03 10:46 | Emergency (ER) | payer MEDICARE ==
[2024-09-03 10:52] VITALS: RESP 16
[2024-09-03] MEDS: DIPH,PERTUS(ACELL)TETVAC-LF 0.5 ML VIAL IM ONE (11:24)
[2024-09-03] MEDS: LIDOCAINE 1% INJ 10MG/ML (20 ML MDV) SQ ONE (11:25)
--- NOTE | 2024-09-03 11:26 | ED ---
General Adult HPI - General Chief complaint: Wound/Laceration Stated complaint: L hand lac Time Seen by Provider: 09/03/24 10:54 Source: patient, RN notes reviewed Mode of arrival: ambulatory Limitations: no limitations - History of Present Illness Initial comments: 78-year-old female presents to the emergency department for evaluation of finger laceration. Patient states that she was cleaning some new knives in the soapy cuff cutter. She accidentally cut the tip of her left fourth finger. She is on Plavix. She has been holding pressure but notes continued bleeding. Denies any other injury. Reports full range of motion to the finger. Unsure when she last had a tetanus vaccine. - Related Data Home Medications Medication Instructions Recorded Confirmed Atorvastatin [Lipitor] 40 mg PO HS 12/30/15 06/19/24 Insulin Glargine,Hum.rec.anlog 40 unit SQ HS 12/30/15 06/19/24 [Lantus Solostar Pen] ALPRAZolam [Xanax] 0.25 mg PO BID PRN 03/05/24 06/19/24 Clopidogrel [Plavix] 75 mg PO DAILY 03/05/24 06/19/24 Ferrous Sulfate [Iron (65 MG 325 mg PO DAILY 03/05/24 06/19/24 Elemental)] Metoprolol Succinate (ER) [Toprol 12.5 mg PO DAILY 03/05/24 06/19/24 XL] Acetaminophen Tab [Tylenol] 1,000 mg PO BID 06/19/24 06/19/24 Aspirin EC [Ecotrin Low Dose] 81 mg PO HS 06/19/24 06/19/24 Cholecalciferol [Vitamin D3 (10 10 mcg PO HS 06/19/24 06/19/24 Mcg = 400 Iu)] Docusate [Colace] 100 mg PO BID 06/19/24 06/19/24 Insulin Lispro [humaLOG Kwikpen] 20 units SQ AC-BRKFST 06/19/24 06/19/24 Insulin Lispro [humaLOG Kwikpen] 30 unit SQ AC-LUNCH 06/19/24 06/19/24 Insulin Lispro [humaLOG Kwikpen] 40 unit SQ AC-SUPPER 06/19/24 06/19/24 Melatonin 6 mg PO HS 06/19/24 06/19/24 Multivitamins, Thera [Multivitamin 1 tab PO W/LUNCH 06/19/24 06/19/24 (formulary)] Pregabalin [Lyrica] 150 mg PO TID 06/19/24 06/19/24 Semaglutide [Ozempic] 1 mg SQ MO 06/19/24 06/19/24 Sennosides [Senokot] 8.6 mg PO HS 06/19/24 06/19/24 Vitamin C(Unknown Dose) 1 tab PO HS 06/19/24 06/19/24 allopurinoL [Zyloprim] 100 mg PO HS 06/19/24 06/19/24 polyethylene glycoL 3350 [Miralax] 17 gm PO HS 06/19/24 06/19/24 Previous Rx's Medication Instructions Recorded Ertapenem [INVanz] 1 gm IVPB Q24H #10 each 06/24/24 Fluconazole [Diflucan] 150 mg PO DAILY #3 tab 06/25/24 Fluticasone Nasal [place] [Flonase 2 spray EA NOSTRIL DAILY #5 ml 06/26/24 Nasal [place]] Folic Acid 1 mg PO DAILY@1200 #30 tab 06/26/24 Loratadine [Claritin] 10 mg PO DAILY #30 tab 06/26/24 Pseudoephedrine [Sudafed] 30 mg PO Q8HR PRN #20 tab 06/26/24 Thiamine [Vitamin B-1] 100 mg PO DAILY@1200 #30 tab 06/26/24 Allergies Allergy/AdvReac Type Severity Reaction Status Date / Time Penicillins Allergy Rash/Hives Verified 09/03/24 10:52 ragweed pollen Allergy Rash/Hives Verified 09/03/24 10:52 Review of Systems ROS Statement: Those systems with pertinent positive or pertinent negative responses have been documented in the HPI. ROS Other: All systems not noted in ROS Statement are negative. Past Medical History Past Medical History: Coronary Artery Disease (CAD), Diabetes Mellitus, Hyperlipidemia, Hypertension, Sleep Apnea/CPAP/BIPAP Additional Past Medical History / Comment(s): arthritis, neuropathy, kidney stones, unstable angina,uses cpap History of Any Multi-Drug Resistant Organisms: ESBL Date of last positivie culture/infection: 06/19/24 MDRO Source:: urine Past Surgical History: Heart Catheterization With Stent, Hysterectomy Additional Past Surgical History / Comment(s): D and C X2, Cataract bilateral X2 Past Anesthesia/Blood Transfusion Reactions: Postoperative Nausea & Vomiting (PONV) Date of Last Stent Placement:: Past Psychological History: No Psychological Hx Reported Smoking Status: Never smoker Past Alcohol Use History: Occasional Past Drug Use History: None Reported - Past Family History Mother Family Medical History: Coronary Artery Disease (CAD), Diabetes Mellitus Father Additional Family Medical History / Comment(s): emphysema,heart problems Sister(s) Family Medical History: Cancer, Diabetes Mellitus Additional Family Medical History / Comment(s): breast Brother(s) Family Medical History: Diabetes Mellitus, Myocardial Infarction ([place]) General Exam Limitations: no limitations General appearance: alert, in no apparent distress Head exam: Present: atraumatic, normocephalic, normal inspection Eye exam: Present: normal appearance, PERRL, EOMI. Absent: scleral icterus, conjunctival injection, periorbital swelling Extremities exam: Present: full ROM, normal capillary refill, other (Radial pulses 2+) Neurological exam: Present: alert, oriented X3 Psychiatric exam: Present: normal affect, normal mood Skin exam: Present: warm, dry. Absent: intact (Flap laceration to the left fourth digit distal) Course Vital Signs 09/03/24 10:50 Temperature 97.8 F Pulse Rate 76 Respiratory 16 Rate Blood Pressure 136/67 O2 Sat by Pulse 97 Oximetry Procedures - Laceration Laceration #1 Consent Obtained: verbal consent Indication: laceration Site: hand Size (cm): 1 Description: flap Depth: simple, single layer Anesthetic Used: lidocaine 1% Anesthesia Technique: local infiltration Pre-repair: wound explored Type of Sutures: other Size of Sutures: 5-0 Number of Sutures: 3 Technique: simple, interrupted Patient Tolerated Procedure: well, no complications Medical Decision Making - Medical Decision Making Was pt. sent in by a medical professional or institution (, PA, [facility] [employer], urgent care, hospital, or half-way...) When possible be specific @ -No Did you speak to anyone other than the patient for history (EMS, parent, family, police, friend...)? What history was obtained from this source @ -No Did you review nursing and triage notes (agree or disagree)? Why? @ -I reviewed and agree with nursing and triage notes Were old charts reviewed (outside hosp., previous admission, EMS record, old EKG, old radiological studies, urgent care reports/EKG's, half-way records)? Report findings @ -No old charts were reviewed Differential Diagnosis (chest pain, altered mental status, abdominal pain women, abdominal pain men, vaginal bleeding, weakness, fever, dyspnea, syncope, headache, dizziness, GI bleed, back pain, seizure, CVA, palpatations, mental health, musculoskeletal)? @ -Laceration, abrasion, avulsion injury, fracture, this this is not inclusive EKG interpreted by me (3pts min.). @ -None X-rays interpreted by me (1pt min.). @ -None done CT interpreted by me (1pt min.). @ -None done U/S interpreted by me (1pt. min.). @ -None done What testing was considered but not performed or refused? (CT, X-rays, U/S, labs)? Why? @ -None What meds were considered but not given or refused? Why? @ -None Did you discuss the management of the patient with other professionals (professionals i.e. , PA, [facility], lab, RT, psych nurse, social insurance analyst, public relations director, teacher, correctional probation officer, case management coordinator)? Give summary @ -No Was smoking cessation discussed for >3mins.? @ -No Was critical care preformed (if so, how long)? @ -No Were there social determinants of health that impacted care today? How? (Homelessness, low income, unemployed, alcoholism, drug addiction, transportation, low edu. Level, literacy, decrease access to med. care, residential, rehab)? @ -No Was there de-escalation of care discussed even if they declined (Discuss DNR or withdrawal of care, Hospice)? DNR status @ -No What co-morbidities impacted this encounter? (DM, HTN, Smoking, COPD, CAD, Cancer, CVA, ARF, Chemo, Hep., AIDS, mental health diagnosis, sleep apnea, morbid obesity)? @ -None Was patient admitted / discharged? Hospital course, mention meds given and route, prescriptions, significant lab abnormalities, going to OR and other pertinent info. @ -Discharge. Patient presents emergency department for distal left fourth finger laceration. Patient was updated on tetanus vaccine. The wound was cleaned. It was repaired with sutures. Advised on wound care and suture remov al time. Patient will be discharged home. Patient stable at time of discharge. Case discussed with Dr. Barnard. Undiagnosed new problem with uncertain prognosis? @ -No Drug Therapy requiring intensive monitoring for toxicity (Heparin, Nitro, Insulin, Cardizem)? @ -No Were any procedures done? @Laceration repair Diagnosis/symptom? @ -Laceration Acute, or Chronic, or Acute on Chronic? @ -Acute Uncomplicated (without systemic symptoms) or Complicated (systemic symptoms)? @ -Uncomplicated Side effects of treatment? @ -No Exacerbation, Progression, or Severe Exacerbation? @ -No Poses a threat to life or bodily function? How? (Chest pain, [place], [place], pneumonia, PE, COPD, DKA, ARF, appy, cholecystitis, CVA, Diverticulitis, Homicidal, Suicidal, threat to staff... and all critical care pts) @ -No - Lab Data Lab Results 09/03/24 Range/Units 11:31 POC Glucose (mg/dL) 115 H (70-110) mg/dL POC Glu Pss Delivery Professional ID Elia Moreno Disposition Clinical Impression: Laceration Disposition: HOME SELF-CARE Condition: Stable Instructions (If sedation given, give patient instructions): Care For Your Stitches (ED) Additional Instructions: Have sutures removed in 7 to 10 days. Please keep wound clean and dry. Be on the look out for signs of infection including redness, discharge, increased pain. Please follow-up with your primary care provider. Return to the emergency department for new or worsening symptoms. Is patient prescribed a controlled substance at d/c from ED?: No Referrals: Jeramy Lutz MD [Primary Care Provider] - 1-2 days
[2024-09-03] MEDS: LIDOCAINE/EPINEPHR/TETRACAINE 5 ML BOTTLE TOPICAL ONE (11:29)
[2024-09-03 11:32] LABS: Glucose,Whole Blood 115 mg/dL (70-110)
[2024-09-03 12:35] VITALS: BP 130/72; PULSE 72; TEMP 97.9
== END 2024-09-03 12:30 | disposition home or self-care (01) ==
LOC: EC 10:46
DX: S61.215A Laceration without foreign body of left ring finger without damage to nail, initial encounter (principal); Z88.0 Allergy status to penicillin; Z88.8 Allergy status to other drugs, medicaments and biological substances; Z23 Encounter for immunization; W26.0XXA Contact with knife, initial encounter
CPT/HCPCS: 36415; 90715; 99283; 90471; 12001; J2003